=== PATIENT | female | born 1960 | race Caucasian/White ===

== ENCOUNTER → 2021-01-20 15:10 | Outpatient (BNVA) | payer OTHER, SELFPAY | PROVIDERS: PCP Internal Medicine; Visit Provider Internal Medicine Pulmonary Disease ==

== ENCOUNTER 2021-02-01 06:15 | Outpatient (REF) | payer OTHER, SELFPAY ==
[2021-02-01 07:07] LABS: MANUAL DIFF FLAG NO
[2021-02-01 07:14] LABS: Basophils Absolute Auto 0.1 X10*3/uL (0.0-0.2); Basophils Percent Auto 0.8 % (0-2); Eosinophils Absolute Auto 0.3 X10*3/uL (0.0-0.4); Eosinophils Percent Auto 4.6 % (0-4); Hematocrit 43.1 % (37-47); Hemoglobin 14.2 g/dl (12.0-16.0); Imm Gran Abs Auto 0.02 X10*3/uL (0.00-0.03); Imm Gran Pct Auto 0.3 % (0.0-0.4); Lymphocytes Absolute Auto 2.3 X10*3/uL (1.2-4.9); Lymphocytes Percent Auto 37.3 % (20-40); Mean Corpuscular HGB Conc 32.9 g/dl (31.0-35.0); Mean Corpuscular Hemoglobin 30.5 pg (27.0-33.0); Mean Corpuscular Volume 92.7 fL (80-98); Mean Platelet Volume 9.4 fL (9.4-12.3); Monocytes Absolute Auto 0.3 X10*3/uL (0.1-1.2); Neutrophils Absolute Auto 3.2 X10*3/uL (2.0-8.3); Platelet Count 222 X10*3/uL (160-400); Red Blood Count 4.65 X10*6/uL (4.20-5.50); Red Cell Distribution Width 12.7 % (11.0-16.0); White Blood Count 6.1 X10*3/uL (4.8-10.8)
[2021-02-01 07:35] LABS: Alanine Aminotransferase 28 U/L (0-31); Albumin Level 4.3 g/dL (3.5-5.0); Alkaline Phosphatase 88 U/L (39-117); Aspartate Amino Transferase 24 U/L (5-31); Bilirubin Total 0.4 mg/dL (0.0-1.0); Blood Urea Nitrogen 20 mg/dL (9-16); Cholesterol 196 mg/dL; Estimated Glomerular Filt Rate > 60; Glucose Random 113 mg/dL (60-115); HDL Cholesterol 56 mg/dL; LDL Cholesterol Calculated 120 mg/dl; Total Protein 6.4 g/dL (6.5-8.0); Triglycerides 103 mg/dL
[2021-02-01 07:43] LABS: Anion Gap 11 (12-20); Carbon Dioxide 28 mmol/L (22-29); Chloride 106 mmol/L (96-108); Potassium 4.1 mmol/L (3.3-5.1); Sodium 141 mmol/L (135-145)
[2021-02-01 07:53] LABS: Thyroid Stimulating Hormone 3.03 uIU/mL (0.32-4.0)
== END 2021-02-01 06:16 | disposition home or self-care (01) ==
LOC: HO.LAB 06:15
PROVIDERS: PCP Internal Medicine; Visit Provider Internal Medicine
DX: E78.2 Mixed hyperlipidemia (principal); I10 Essential (primary) hypertension; J45.909 Unspecified asthma, uncomplicated
CPT/HCPCS: 36415; 80053; 80061; 84443; 85025

== ENCOUNTER 2021-02-11 11:25 | Outpatient (REF) | payer OTHER, SELFPAY ==
--- NOTE | ~2021-02-11 | US_ITS ---
EXAMINATION: US THYROID CLINICAL INFORMATION: Difficulty swallowing. Thyroid nodule. COMPARISON: None TECHNIQUE: Linear transducer middleton-scale and color Doppler examination with attention to the region of the thyroid. FINDINGS: SIZE: Measurements of the thyroid lobes and nodules are given in sagittal, anteroposterior and transverse dimensions respectively. Right Thyroid Lobe: 5.5 x 1.9 x 1.3 cm, volume 7.1 mL. Parenchyma: The gland echotexture is homogeneous. Thyroid vascularity is normal. Left Thyroid Lobe: 4.0 x 1.4 x 1.2 cm, volume 3.4 mL. Parenchyma: The gland echotexture is homogeneous. Thyroid vascularity is normal. Isthmus: 0.6 cm in maximum AP dimension. Estimated total number of nodules greater than or equal to 1 cm: 1. Sales Account Executive nodules are described as follows: 1. Location: Isthmus. Size: 0.6 x 0.5 x 0.5 cm, volume 0.85 mL. Nodule characteristics: Composition: Solid (2). Echogenicity: Hypoechoic (2). Shape: Not taller than wide (0). Margins: Ill-defined (0). Echogenic Foci: Macrocalcifications (1). ACR TI-RADS total points: 5 ACR TI-RADS category: 4 2. Location: Left isthmus. Size: 0.8 x 0.6 x 0.7 cm, volume 0.18 mL. Nodule characteristics: Composition: Solid (2). Echogenicity: Hypoechoic (2). Shape: Not taller than wide (0). Margins: Smooth (0). Echogenic Foci: None (0). ACR TI-RADS total points: 4 ACR TI-RADS category: 4 3. Location: Left superior. Size: 0.7 x 0.6 x 0.6 cm, volume 0.13 mL. Nodule characteristics: Composition: Solid (2). Echogenicity: Hypoechoic (2). Shape: Not taller than wide (0). Margins: Smooth (0). Echogenic Foci: Macrocalcifications (1). ACR TI-RADS total points: 5 ACR TI-RADS category: 4 4. Location: Left inferior. Size: 1.6 x 1.3 x 1.4 cm, volume 1.52 mL. Nodule characteristics: Composition: Mixed cystic and solid (1). Echogenicity: Hypoechoic (2). Shape: Not taller than wide (0). Margins: Ill-defined (0). Echogenic Foci: Macrocalcifications (1). ACR TI-RADS total points: 4 ACR TI-RADS category: 4 5. Location: Right mid/inferior. Size: 0.3 x 0.3 x 0.3 cm, volume 0.01 mL. Nodule characteristics: Composition: Cannot be determined (2). Echogenicity: Cannot be determined (1). Shape: Not taller than wide (0). Margins: Smooth (0). Echogenic Foci: Peripheral calcifications (2). ACR TI-RADS total points: 5 ACR TI-RADS category: 4 NODES: No lymphadenopathy is seen in the tissue surrounding the thyroid gland. US/US thyroid IMPRESSION: Multinodular thyroid, as described. The largest nodule is a 1.6 x 1.3 x 1.4 cm mixed cystic and solid TR4. Sonographic follow up is recommended. ACR TI-RADS RECOMMENDATION REFERENCE: Ultrasound-guided fine-needle aspiration, followup ultrasound, no further follow up. * TR1 (0 point) and TR 2 (2 points): No FNA or follow up * TR3 (3 points): FNA if more than or equal to 2.5 cm in maximum dimension, followup ultrasound in 1, 3 and 5 years if 1.5 to 2.4 cm in maximum dimension. * TR4 (4-6 points): FNA if more than or equal to 1.5 cm in maximum dimension, followup ultrasound in 1, 2, 3 and 5 years if 1 to 1.4 cm in maximum dimension. * TR5 (more than or equal to 7 points): FNA if more than or equal to 1 cm in maximum dimension, followup ultrasound every year for 5 years if 0.5 to 0.9 cm in maximum dimension. * TR3, TR4 or TR5 nodules that are below the size threshold for follow up receive no follow up.
== END 2021-02-11 11:26 | disposition home or self-care (01) ==
LOC: HO.US 11:25
PROVIDERS: Visit Provider Internal Medicine
DX: E04.1 Nontoxic single thyroid nodule (principal); R13.10 Dysphagia, unspecified
CPT/HCPCS: 76536

== ENCOUNTER 2021-04-07 08:35 | Outpatient (REF) | payer OTHER, SELFPAY ==
--- NOTE | ~2021-04-07 | MM_ITS ---
EXAMINATION: MM SCREENING DIGITAL BREAST TOMOSYNTHESIS, BILATERAL CLINICAL INFORMATION: Screening. Asymptomatic. The lifetime risk of breast cancer based on the Tyrer-Cuzick Model is 12%. COMPARISON: Mammography: 04/26/2019, 12/30/2017, 05/26/2016, 06/20/2014 TECHNIQUE: Digital breast tomosynthesis is performed in both the craniocaudal and mediolateral oblique views along with computer-aided detection (CAD). Synthesized 2D images are generated from the tomosynthesis. FINDINGS: There are scattered areas of fibroglandular density (ACR BI-RADS breast composition Category b). There are no significant masses, abnormal calcifications, or other abnormalities. Parenchymal pattern is similar to prior studies. No developing density. No significant changes. MM/MM tomosynthesis screening BI IMPRESSION: No mammographic evidence of malignancy. ASSESSMENT: BI-RADS 1: Negative RECOMMENDATION: Routine annual mammography screening. This patient's information was entered into a reminder system with a target due date for their next mammogram.
== END 2021-04-07 08:36 | disposition home or self-care (01) ==
LOC: HO.MAMMO 08:35
PROVIDERS: Visit Provider Internal Medicine
DX: Z12.31 Encounter for screening mammogram for malignant neoplasm of breast (principal)
CPT/HCPCS: 77063; 77067

== ENCOUNTER → 2021-08-04 15:01 | Outpatient (BNVA) | payer OTHER, SELFPAY | PROVIDERS: PCP Internal Medicine; Visit Provider Internal Medicine Pulmonary Disease ==

== ENCOUNTER → 2022-02-01 14:51 | Outpatient (BNVA) | payer OTHER, SELFPAY | PROVIDERS: PCP Internal Medicine; Visit Provider Internal Medicine Pulmonary Disease ==

== ENCOUNTER 2022-02-22 06:29 | Outpatient (REF) | payer OTHER, SELFPAY ==
[2022-02-22 06:40] LABS: MANUAL DIFF FLAG NO
[2022-02-22 07:28] LABS: Basophils Percent Auto 0.4 % (0-2); Eosinophils Absolute Auto 0.2 X10*3/uL (0.0-0.4); Eosinophils Percent Auto 2.8 % (0-4); Hematocrit 43.1 % (37.0-47.0); Imm Gran Abs Auto 0.02 X10*3/uL (0.00-0.03); Imm Gran Pct Auto 0.3 % (0.0-0.4); Lymphocytes Absolute Auto 1.3 X10*3/uL (1.2-4.9); Mean Corpuscular HGB Conc 32.5 g/dl (31.0-35.0); Mean Corpuscular Hemoglobin 30.3 pg (27.0-33.0); Mean Corpuscular Volume 93.3 fL (80.0-98.0); Mean Platelet Volume 9.7 fL (9.4-12.3); Monocytes Absolute Auto 0.3 X10*3/uL (0.1-1.2); Monocytes Percent Auto 4.7 % (2-11); Neutrophils Absolute Auto 4.9 x10*3/uL (2.0-8.3); Neutrophils Percent Auto 72.8 % (45-73); Platelet Count 218 X10*3/uL (160-400); Red Blood Count 4.62 X10*6/uL (4.20-5.50); Red Cell Distribution Width 12.5 % (11.0-16.0); White Blood Count 6.8 X10*3/uL (4.8-10.8)
[2022-02-22 07:49] LABS: Alanine Aminotransferase 25 U/L (0-31); Albumin Level 4.2 g/dL (3.5-5.0); Alkaline Phosphatase 85 U/L (39-117); Anion Gap 10 (12-20); Aspartate Amino Transferase 23 U/L (5-31); Bilirubin Total 0.5 mg/dL (0.0-1.0); Blood Urea Nitrogen 15 mg/dL (9-16); Calcium 9.2 mg/dL (8.4-10.2); Carbon Dioxide 28 mmol/L (22-29); Chloride 108 mmol/L (96-108); Cholesterol 169 mg/dL; Estimated Glomerular Filt Rate > 60; Glucose Random 107 mg/dL (60-115); HDL Cholesterol 53 mg/dL; LDL Cholesterol Calculated 92 mg/dl; Potassium 4.3 mmol/L (3.3-5.1); Sodium 142 mmol/L (135-145); Total Protein 6.6 g/dL (6.5-8.0); Triglycerides 123 mg/dL
[2022-02-24 17:41] LABS: TS Negative Control Passed; TS Panel A 0; TS Panel B 0; TS Positive Control Passed; TSpotTB Negative (Negative)
== END 2022-02-22 06:30 | disposition home or self-care (01) ==
LOC: HO.LAB 06:29
PROVIDERS: PCP Internal Medicine; Visit Provider Internal Medicine
DX: Z00.01 Encounter for general adult medical examination with abnormal findings (principal); Z11.1 Encounter for screening for respiratory tuberculosis; E89.0 Postprocedural hypothyroidism; I10 Essential (primary) hypertension; M79.18 Myalgia, other site
CPT/HCPCS: 36415; 80053; 80061; 85025; 86481

== ENCOUNTER → 2022-04-05 13:24 | Outpatient (BNVA) | payer OTHER, SELFPAY | PROVIDERS: PCP Internal Medicine; Visit Provider Internal Medicine Pulmonary Disease | DX: J45.40 Moderate persistent asthma, uncomplicated (principal) ==

== ENCOUNTER 2022-06-20 07:20 | Outpatient (REF) | payer OTHER, SELFPAY ==
--- NOTE | ~2022-06-20 | MM_ITS ---
EXAMINATION: MM SCREENING DIGITAL BREAST TOMOSYNTHESIS, BILATERAL CLINICAL INFORMATION: Screening. Asymptomatic. The lifetime risk of breast cancer based on the Tyrer-Cuzick Model is 16%. COMPARISON: Mammography: 04/07/2021, 04/26/2019, series 318 TECHNIQUE: Digital breast tomosynthesis is performed in both the craniocaudal and mediolateral oblique views along with computer-aided detection (CAD). Synthesized 2D images are generated from the tomosynthesis. FINDINGS: There are scattered areas of fibroglandular density (ACR BI-RADS breast composition Category b). There are no significant masses, abnormal calcifications, or other abnormalities. No significant changes. MM/MM tomosynthesis screening BI IMPRESSION: No mammographic evidence of malignancy. ASSESSMENT: BI-RADS 1: Negative RECOMMENDATION: Routine annual mammography screening. This patient's information was entered into a reminder system with a target due date for their next mammogram.
== END 2022-06-20 07:21 | disposition home or self-care (01) ==
LOC: HO.MAMMO 07:20
PROVIDERS: PCP Internal Medicine; Visit Provider Internal Medicine
DX: Z12.31 Encounter for screening mammogram for malignant neoplasm of breast (principal)
CPT/HCPCS: 77063; 77067

== ENCOUNTER 2022-10-13 15:52 | Outpatient (REF) | payer OTHER, SELFPAY ==
--- NOTE | ~2022-10-13 | XR_ITS ---
EXAMINATION: XR CHEST CLINICAL INFORMATION: Question situs inversus. COMPARISON: Chest 10/09/2020 TECHNIQUE: 2 views of the chest were obtained. FINDINGS: Both lungs are well-expanded and clear of acute process. Heart size and pulmonary vascularity is normal. There is no situs inversus. There is no pleural effusion or thickening. No gross bony abnormality seen. XR/XR chest 2V IMPRESSION: Unremarkable chest exam. No change from 10/09/2019.
== END 2022-10-13 15:53 | disposition home or self-care (01) ==
LOC: HO.XRAY 15:52
PROVIDERS: Visit Provider Internal Medicine
DX: Q89.3 Situs inversus (principal)
CPT/HCPCS: 71046

== ENCOUNTER 2023-02-11 07:29 | Outpatient (REF) | payer OTHER, SELFPAY ==
[2023-02-11 08:02] LABS: MANUAL DIFF FLAG NO
[2023-02-11 08:45] LABS: Basophils Percent Auto 0.7 % (0-2); Eosinophils Absolute Auto 0.3 X10*3/uL (0.0-0.4); Eosinophils Percent Auto 4.7 % (0-4); Hematocrit 42.5 % (37.0-47.0); Hemoglobin 14.2 g/dl (12.0-16.0); Imm Gran Abs Auto 0.03 X10*3/uL (0.00-0.03); Imm Gran Pct Auto 0.6 % (0.0-0.4); Lymphocytes Absolute Auto 1.9 X10*3/uL (1.2-4.9); Lymphocytes Percent Auto 34.6 % (20-40); Mean Corpuscular HGB Conc 33.4 g/dl (31.0-35.0); Mean Corpuscular Hemoglobin 30.5 pg (27.0-33.0); Mean Corpuscular Volume 91.2 fL (80.0-98.0); Mean Platelet Volume 9.3 fL (9.4-12.3); Monocytes Absolute Auto 0.3 X10*3/uL (0.1-1.2); Neutrophils Absolute Auto 2.9 x10*3/uL (2.0-8.3); Neutrophils Percent Auto 53.4 % (45-73); Platelet Count 211 X10*3/uL (160-400); Red Blood Count 4.66 X10*6/uL (4.20-5.50); Red Cell Distribution Width 12.6 % (11.0-16.0); White Blood Count 5.4 X10*3/uL (4.8-10.8)
[2023-02-11 09:34] LABS: Alanine Aminotransferase 31 U/L (0-31); Albumin Level 4.2 g/dL (3.5-5.0); Alkaline Phosphatase 73 U/L (39-117); Anion Gap 14 (12-20); Aspartate Amino Transferase 26 U/L (5-31); Bilirubin Total 0.6 mg/dL (0.0-1.0); Blood Urea Nitrogen 12 mg/dL (9-16); Calcium 8.9 mg/dL (8.4-10.2); Carbon Dioxide 26 mmol/L (22-29); Chloride 106 mmol/L (96-108); Cholesterol 197 mg/dL; Estimated Glomerular Filt Rate > 60; Glucose Random 118 mg/dL (60-115); HDL Cholesterol 57 mg/dL; LDL Cholesterol Calculated 110 mg/dl; Potassium 4.3 mmol/L (3.3-5.1); Sodium 142 mmol/L (135-145); Total Protein 6.4 g/dL (6.5-8.0); Triglycerides 152 mg/dL
[2023-02-11 09:38] LABS: Thyroid Stimulating Hormone 0.02 uIU/mL (0.32-4.0)
== END 2023-02-11 07:30 | disposition home or self-care (01) ==
LOC: HO.LAB 07:29
PROVIDERS: PCP Internal Medicine; Visit Provider Internal Medicine
DX: E78.00 Pure hypercholesterolemia, unspecified (principal); E89.0 Postprocedural hypothyroidism; I10 Essential (primary) hypertension
CPT/HCPCS: 36415; 80053; 80061; 84443; 85025

== ENCOUNTER 2023-02-21 15:16 | Outpatient (REF) | payer OTHER, SELFPAY ==
[2023-02-21 16:01] LABS: MANUAL DIFF FLAG NO
[2023-02-21 16:22] LABS: Basophils Percent Auto 0.4 % (0-2); Eosinophils Absolute Auto 0.3 X10*3/uL (0.0-0.4); Hematocrit 42.7 % (37.0-47.0); Hemoglobin 14.2 g/dl (12.0-16.0); Imm Gran Abs Auto 0.01 X10*3/uL (0.00-0.03); Imm Gran Pct Auto 0.1 % (0.0-0.4); Lymphocytes Absolute Auto 1.9 X10*3/uL (1.2-4.9); Lymphocytes Percent Auto 27.9 % (20-40); Mean Corpuscular HGB Conc 33.3 g/dl (31.0-35.0); Mean Corpuscular Hemoglobin 30.3 pg (27.0-33.0); Mean Corpuscular Volume 91.2 fL (80.0-98.0); Mean Platelet Volume 9.6 fL (9.4-12.3); Monocytes Absolute Auto 0.3 X10*3/uL (0.1-1.2); Neutrophils Absolute Auto 4.2 x10*3/uL (2.0-8.3); Neutrophils Percent Auto 63.6 % (45-73); Platelet Count 243 X10*3/uL (160-400); Red Blood Count 4.68 X10*6/uL (4.20-5.50); Red Cell Distribution Width 12.5 % (11.0-16.0); White Blood Count 6.7 X10*3/uL (4.8-10.8)
[2023-02-23 07:49] LABS: Rubella IgG Antibody 3.33 Index; Rubeola IgG (Measles) >300.00 AU/mL
== END 2023-02-21 15:17 | disposition home or self-care (01) ==
LOC: HO.LAB 15:16
PROVIDERS: Absent Provider Internal Medicine Pulmonary Disease; PCP Internal Medicine; Visit Provider Internal Medicine
DX: Z00.00 Encounter for general adult medical examination without abnormal findings (principal); Z91.09 Other allergy status, other than to drugs and biological substances; E78.00 Pure hypercholesterolemia, unspecified; I10 Essential (primary) hypertension; M51.16 Intervertebral disc disorders with radiculopathy, lumbar region; R73.01 Impaired fasting glucose
CPT/HCPCS: 36415; 82785; 85025; 86003; 86735; 86762; 86765

== ENCOUNTER → 2023-05-16 15:42 | Outpatient (BNVA) | payer OTHER, SELFPAY | PROVIDERS: PCP Internal Medicine; Visit Provider Internal Medicine Pulmonary Disease ==

== ENCOUNTER 2023-06-05 12:09 | Outpatient (REF) | payer OTHER, SELFPAY ==
--- NOTE | ~2023-06-05 | XR_ITS ---
EXAMINATION: XR HIP, LEFT CLINICAL INFORMATION: Discomfort left hip COMPARISON: None available. TECHNIQUE: Two views of the left hip. FINDINGS: No fracture. Alignment is anatomic. Hip joint space is maintained. Soft tissues are unremarkable. XR/XR hip LT min 2V IMPRESSION: Normal left hip.
== END 2023-06-05 12:10 | disposition home or self-care (01) ==
LOC: HO.XRAY 12:09
PROVIDERS: PCP Internal Medicine; Visit Provider Internal Medicine
DX: M25.552 Pain in left hip (principal)
CPT/HCPCS: 73502

== ENCOUNTER 2023-08-07 15:58 | Outpatient (REF) | payer OTHER, SELFPAY | END 2023-08-07 15:59 | disposition home or self-care (01) | LOC: HO.MAMMO 15:58 | PROVIDERS: PCP Internal Medicine; Visit Provider Internal Medicine | DX: Z12.31 Encounter for screening mammogram for malignant neoplasm of breast (principal) | CPT/HCPCS: 77063; 77067 ==

== ENCOUNTER → 2023-08-07 16:30 | Outpatient (BNV) | payer OTHER, SELFPAY | PROVIDERS: PCP Internal Medicine; Visit Provider Radiology Diagnostic Radiology | DX: Z12.31 Encounter for screening mammogram for malignant neoplasm of breast (principal) | CPT/HCPCS: 77063; 77067 ==

== ENCOUNTER 2023-08-08 15:36 | Outpatient (AMB) | payer OTHER, SELFPAY ==
--- NOTE | 2023-08-08 15:37 | A.OFFVIS_ITS ---
Intake Vital Signs 08/08/23 15:38 Height 5 ft 2 in Weight 181 lb 14.102 oz BMI 33.3 BP 127/80 Blood Pressure Location Lt brachial Position Sitting Pulse 97 Pulse Source Doppler Pulse Oximetry (%) 96 Oxygen Delivery Method Room Air Intake Visit Reasons: Asthma Allergies erythromycin base Allergy (Verified 08/08/23 15:42) Unknown HPI Asthma HPI Details 63-year-old lady, lifetime nonsmoker, fo llowed for underlying moderate persistent allergic asthma.? She has been using Flovent, Singulair, and albuterol MDI with reasonable control of her symptoms, except some seasonal allergic exacerbations. Patient has had essentially unrevealing RAST. She has had COVID in May, but now has almost fully recovered from it, though she does complain of some intermittent raspy-ness of her voice. Review of Systems Const Denies daytime sleepiness, Denies excessive sweating, Denies fatigue, Denies fever(s), Denies lethargy, Denies malaise, Denies night sweats, Denies snoring and Denies weight loss Eyes Denies blurry vision and Denies itchy eyes ENT Denies nasal congestion, Denies post nasal drip, Denies sinus pain, Denies sinus pressure and Denies other ( Thrush) Card Denies chest pain, Denies pedal edema, Denies dyspnea, Denies orthopnea and Denies paroxysmal nocturnal dyspnea Resp Denies cough, Denies hemoptysis, Denies excessive phlegm production, Denies dyspnea, Denies snoring and Denies wheezing GI Denies abdominal pain and Denies heartburn Musc Denies myalgias, Denies arthralgias and Denies joint swelling Skin/Breast Denies rash Neuro Denies memory loss and Denies seizure-like activity Psych Denies abnormal sleep pattern, Denies anxiety and Denies memory loss Endo Denies excessive sweating, Denies fatigue and Denies heat intolerance Jaiden/Lymph Denies easy bruising Aller/Immun Denies itchy eyes, Denies seasonal rhinorrhea and Denies wheezing Physical Exam Vital Signs: Last Vital Signs Pulse 97 08/08/23 15:38 BP 127/80 08/08/23 15:38 Pulse Ox 96 08/08/23 15:38 Oxygen Delivery Method Room Air 08/08/23 15:38 BMI result Body Mass Index 33.3 Const General: no acute distress and alert Nutritional Appearance: not obese Orientation/consciousness: Other orientation findings ( oriented) HEENT Head: Yes atraumatic Eyes General: appearance normal, both eyes and all related structures Sclerae: sclerae normal EOM: EOMs intact bilaterally Neck Neck: Yes supple Lymphatic: no lymphadenopathy noted Resp Effort & Inspection: normal respiratory effort and no use of accessory muscles Auscultation: clear to auscultation bilaterally Cardio Rate: regular rate Rhythm: regular rhythm Heart sounds: no gallops, no murmurs and no rubs Skin General skin exam: other ( warm) Extrem General: No clubbing, No cyanosis and No edema Assessment & Plan Assessment & Plan (1) Moderate persistent asthma: Code(s): J45.40 - Moderate persistent asthma, uncomplicated Plan: Patient has been advised to increase her Flovent and albuterol MDI and Ca of her voice symptoms anish. Continue current regimen of Flovent 110 and albuterol MDI. (2) Environmental allergies: Code(s): Z91.09 - Other allergy status, other than to drugs and biological substances Plan: Now with seasonal exacerbation, though still with reasonable control on Singulair. Continue current regimen. Coding Level of Care Code Est Pt Level 4 (90758) Diagnoses Moderate persistent asthma J45.40 Environmental allergies Z91.09
[2023-08-08 15:38] VITALS: BP 127/80; PULSE 97; O2SAT 96; BMI 33.3
== END 2023-08-08 15:58 | disposition home or self-care (01) ==
PROVIDERS: PCP Internal Medicine; Visit Provider Internal Medicine Pulmonary Disease
DX: J45.40 Moderate persistent asthma, uncomplicated (principal); Z91.09 Other allergy status, other than to drugs and biological substances
CPT/HCPCS: 99214

== ENCOUNTER → 2023-08-08 15:36 | Outpatient (BNVA) | payer OTHER, SELFPAY | PROVIDERS: PCP Internal Medicine; Visit Provider Internal Medicine Pulmonary Disease | DX: J45.40 Moderate persistent asthma, uncomplicated (principal); Z91.09 Other allergy status, other than to drugs and biological substances ==

== ENCOUNTER 2023-12-15 06:44 | Outpatient (REF) | payer OTHER, SELFPAY ==
[2023-12-15 07:50] LABS: Estimated Average Glucose 100 mg/dL; Hemoglobin A1c % 5.1 % (<6.0)
[2023-12-15 08:10] LABS: Alanine Aminotransferase 23 U/L (0-31); Albumin Level 4.2 g/dL (3.5-5.0); Alkaline Phosphatase 70 U/L (39-117); Anion Gap 11 (12-20); Aspartate Amino Transferase 22 U/L (5-31); Bilirubin Total 0.6 mg/dL (0.0-1.0); Blood Urea Nitrogen 20 mg/dL (9-16); Carbon Dioxide 26 mmol/L (22-29); Chloride 108 mmol/L (96-108); Cholesterol 193 mg/dL (<200); Estimated Glomerular Filt Rate > 60; Glucose Random 102 mg/dL (60-115); HDL Cholesterol 55 mg/dL (>40); LDL Cholesterol Calculated 111 mg/dL (<100); Potassium 4.1 mmol/L (3.3-5.1); Sodium 141 mmol/L (135-145); Total Protein 6.8 g/dL (6.5-8.0); Triglycerides 136 mg/dL (<150)
== END 2023-12-15 06:45 | disposition home or self-care (01) ==
LOC: HO.LAB 06:44
PROVIDERS: PCP Internal Medicine; Visit Provider Internal Medicine
DX: E78.00 Pure hypercholesterolemia, unspecified (principal); I10 Essential (primary) hypertension; R73.01 Impaired fasting glucose
CPT/HCPCS: 36415; 80053; 80061; 83036

== ENCOUNTER 2024-01-04 05:30 | Emergency (ER) | payer OTHER, SELFPAY ==
[2024-01-04 05:37] VITALS: BP 171/85; PULSE 102; RESP 14; TEMP 36.8; O2SAT 96; BMI 32.6
[2024-01-04 05:58] LABS: IDNOW Serial# 08D9AD1C; Strep A Nucleic Acid Negative (Negative)
[2024-01-04 06:00] VITALS: BP 175/85; PULSE 97; RESP 18; O2SAT 98
[2024-01-04 06:04] LABS: COVID-19 Test Negative (Negative); IDNOW Serial# 152EDE1D; IDNOW Serial# 9DB6401D; Influenza A Negative (Negative); Influenza B2 Negative (Negative)
--- NOTE | 2024-01-04 06:44 | ED.GENADULT ---
HPI - General Adult General Chief complaint: General Medical Stated complaint: difficultly swallowing, swollen throat Time Seen by Provider: 01/04/24 06:40 Source: patient Mode of arrival: ambulatory Limitations: no limitations History of Present Illness HPI narrative: Patient is a 63 year old assigned female at with a history of asthma presenting to the emergency department today with a sore throat. Patient states that she woke up this morning with a large collection of mucus in her throat, coughed it out, and has since had a sore throat. Patient states that she feels as though her uvula is swollen. Patient denies any dizziness, lightheadedness, abdominal pain, nausea, vomiting, fever, chills, blurry vision, double vision, loss of vision, chest pain, difficulty breathing, shortness of breath, back pain, night sweats, pain with urination, increased urinary frequency, increased urinary urgency, blood in her urine or stool, syncope or a near syncopal episode, recent trauma or falls, bowel incontinence, bladder incontinence, bowel retention, bladder retention, or any other complaints at this time. Onset (ago): day(s) (1) Severity: mild Severity scale (1-10): 3 Relieving factors: none Exacerbating factors: none Associated symptoms: denies other symptoms Treatments prior to arrival: none Related Data Home Medications Medication Instructions Recorded Confirmed atorvastatin 40 mg tablet 40 mg PO DAILY 01/20/21 losartan 100 mg tablet 100 mg PO DAILY 01/20/21 montelukast 10 mg tablet 10 mg PO DAILY 01/20/21 valsartan 160 1 tab PO DAILY 02/21/23 mg-hydrochlorothiazide 25 mg tablet Previous Rx's Medication Instructions Recorded fluticasone propionate 110 1 puff PO BID #12 ea 10/23/23 mcg/actuation HFA aerosol inhaler (Flovent HFA) penicillin V potassium 500 mg 500 mg PO BID 10 days #20 tabs 01/04/24 tablet prednisone 20 mg tablet 20 mg PO DAILY 7 days #7 tabs 01/04/24 Allergies Allergy/AdvReac Type Severity Reaction Status Date / Time erythromycin base Allergy Unknown Verified 01/04/24 05:41 Review of Systems Constitutional: Constitutional: Reports no additional constitutional complaints, Denies chills, Denies fever(s) and Denies night sweats Eyes: Eyes: Reports no additional eye complaints, Denies blurry vision, Denies change in vision, Denies diplopia, Denies eye discharge, Denies loss of vision and Denies eye pain ENT: Denies dizziness Comments: sore throat Cardiovascular: Cardiovascular: Reports no additional cardiovascular complaints, Denies chest pain, Denies lightheadedness, Denies Loss of Consciousness and Denies dyspnea Respiratory: Respiratory: Reports no additional respiratory complaints and Denies dyspnea Gastrointestinal: Gastrointestinal: Reports no additional gastrointestinal complaints, Denies abdominal pain, Denies melena, Denies hematochezia, Denies change in bowel habits and Denies change in stool character Genitourinary: Genitourinary: Denies hematuria, Denies urinary frequency, Denies dysuria, Denies urinary incontinence, Denies urinary hesitancy and Denies urinary urgency Musculoskeletal: Musculoskeletal: Reports no additional musculoskeletal complaints, Denies numbness and Denies tingling Neurologic: Denies dizziness, Denies loss of vision, Denies numbness and Denies tingling Psychiatric: Psychiatric: Reports no additional psychiatric complaints Endocrine: Endocrine: Reports no additional endocrine complaints Hematologic/Lymphatic: Hematologic/Lymphatic: Reports no additional hematologic/lymphatic complaints Allergic/Immunologic: Allergic/Immunologic: Reports no additional allergic/immunologic complaints PMFSH Past Medical History Attestation statement: The following information was validated with the patient. Source: old records reviewed and nursing notes reviewed Social History Social History Smoked in Last 30 Days: No Use of substances other than those prescribed or required for medical reasons: No Advance Directives: No Patient : No Physical Exam ED Vital Signs: Vital Signs - 24 hr 01/04/24 05:37 01/04/24 06:00 Temperature 98.2 F Pulse Rate 102 H 97 Respiratory Rate 14 18 Blood Pressure 171/85 H 175/85 H Pulse Oximetry 96 98 Oxygen Delivery Method Room Air BMI result Body Mass Index 32.6 Const General: cooperative, no acute distress, alert and awake Nutritional Appearance: well nourished Orientation/consciousness: patient oriented x3 Limitations: no limitations HENMT Head: Yes normal to inspection and Yes atraumatic Ears: hearing grossly normal bilaterally and external ears normal General nose exam: Normal external nose present, no nasal discharge noted and no epistaxis Face and sinus: Yes normal facial exam, No abrasion and No laceration Mouth: Normal oral and palatal mucosa present, no drooling and no muffled voice Throat: Yes uvular edema (minimal) Eyes General: appearance normal, both eyes and all related structures Periorbital: periorbital findings normal Eyelids: Yes eyelids normal Conjunctivae: conjunctivae normal Pupils: Equal, round and reactive pupils present EOM: EOMs intact bilaterally Neck Neck: Yes normal visual inspection, Yes full ROM and Yes no lymphadenopathy Chest Chest palpation & inspection: normal inspection of the chest Resp Effort & Inspection: normal respiratory effort and able to speak in complete sentences GI Inspection: Yes normal to inspection Neuro General: patient oriented x3 and moves all extremities Cranial nerves: Yes Equal, round and reactive pupils present Cognition (Neuro): normal cognition Motor exam (neuro): 5/5 motor strength present throughout Sensory Exam: Normal double simultaneous stimulation for sensation Coordination: [id number] test normal Extrem General: Yes normal to inspection, Yes full ROM and Yes capillary refill normal Psych Appearance: grossly normal Mental Status: mental status grossly normal Affect: normal affect Attitude: cooperative Thought process: Normal thought process present Thought content: Normal thought content present Insight: Good insight present (Psych) Medications Administered Discontinued Medications Generic Name Dose Route Start Last Admin Trade Name Freq PRN Reason Stop Dose Admin Dexamethasone Sodium Phosphate 10 mg 01/04/24 06:55 01/04/24 07:59 Dexamethasone Sod Phosphate 10 Mg/Ml Vial PO 01/04/24 06:56 10 mg ONCE ONE Administration Medical Decision Making Medical Decision Making [facility] Narrative: Patient is a 63 year old assigned female at with a history of asthma presenting to the emergency department today with a sore throat and swollen uvula. Patient's physical exam showed very minimal uvular swelling but was otherwise unremarkable. Patient's COVID-19, influenza, and strep tests were all negative. I explained my physical exam findings as well as all test results to the patient. I answered all questions asked by the patient. I stressed the importance of the patient taking her medication as prescribed. I stressed the importance of the patient following up with her primary care provider. I stressed the importance of the patient returning to the emergency department immediately if her symptoms were to worsen or if she were to develop any dizziness, shortness of breath, difficulty breathing, chest pain, blurry vision, loss of vision, nausea, vomiting, abdominal pain, fever, chills, back pain, or any other complaints. Patient verbalized agreement and understanding with this treatment plan and discharge. Differential Diagnosis Differential Diagnoses: The differential diagnosis associated with the presentation includes Uvulitis Strep pharyngitis Pharyngitis COVID-19 Influenza Admission/Observation Consideration of admission/observation: Escalation of care including admission/observation considered Patient would have been admitted to the hospital had her work up had any findings where hospital admission was appropriate and her clinical presentation warranted hospital admission. Lab Data [facility] Lab Attestation statement: I reviewed the patient's lab results. My interpretation of these results are in the [facility] Rationale portion of this note. Labs: Lab Results 01/04/24 Range/Units 05:43 COVID-19 (CHARLES) Negative (Negative) COVID-19 Clin Com See Note Influenza Type A (JASON) Negative (Negative) Influenza Type B (JASON) Negative (Negative) Influenza A & B Note See Note S. pyogenes GrpA JASON Negative (Negative) Prescription Management I considered prescription management with: Antibiotic (patient prescribed antibiotic) Discharge Plan Discharge Clinical Impression: Uvulitis Patient Disposition: Home, Self-Care Instructions: Uvulitis (ED) Additional Instructions: Follow up with your primary care provider. Return to the emergency department immediately if your symptoms worsen or if you develop any dizziness, shortness of breath, difficulty breathing, chest pain, blurry vision, loss of vision, nausea, vomiting, abdominal pain, fever, chills, back pain, or any other complaints. Prescriptions: New prednisone 20 mg tablet 20 mg PO DAILY 7 Days Qty: 7 0RF penicillin V potassium 500 mg tablet 500 mg PO BID 10 Days Qty: 20 0RF No Action fluticasone propionate [Flovent HFA] 110 mcg/actuation HFA aerosol inhaler 1 puff PO BID Qty: 12 0RF montelukast 10 mg tablet 10 mg PO DAILY losartan 100 mg tablet 100 mg PO DAILY atorvastatin 40 mg tablet 40 mg PO DAILY valsartan-hydrochlorothiazide 160-25 mg tablet 1 tab PO DAILY Referrals: Felicia Dumont MD [Primary Care Provider] - Stand Alone Forms: Work/School Release Interventions: ED Discharge Assessment Last Done: 01/04/24 08:01 Discharge Date/Time: 01/04/24 08:01 Print Language: Mohawk
[2024-01-04] MEDS: dexAMETHasone sod phosphate 10 MG/ML VIAL PO (07:59)
== END 2024-01-04 08:01 | disposition home or self-care (01) ==
PROVIDERS: Emergency Provider Emergency Medicine; PCP Internal Medicine
DX: K12.2 Cellulitis and abscess of mouth (principal); R13.10 Dysphagia, unspecified; Z11.52 Encounter for screening for COVID-19; Z79.899 Other long term (current) drug therapy
CPT/HCPCS: 87502; 87635; 87651; 99283; 99284; J1100

== ENCOUNTER 2024-02-06 15:12 | Outpatient (AMB) | payer OTHER, SELFPAY ==
[2024-02-06 15:18] VITALS: BP 126/77; PULSE 117; O2SAT 97; BMI 33.7
--- NOTE | 2024-02-06 15:18 | A.OFFVIS_ITS ---
Intake Vital Signs 02/06/24 15:18 Height 5 ft 2 in Weight 184 lb 1.376 oz BMI 33.7 BP 126/77 Blood Pressure Location Rt brachial Position Sitting Pulse 117 H Pulse Source Doppler Pulse Oximetry (%) 97 Oxygen Delivery Method Room Air Intake Visit Reasons: Asthma Allergies erythromycin base Allergy (Verified 02/06/24 15:22) Unknown HPI Asthma HPI Details 63-year-old lady, lifetime nonsmoker, fo llowed for underlying moderate persistent allergic asthma.? She has been using Flovent, Singulair, and albuterol MDI with reasonable control of her symptoms, except some seasonal allergic exacerbations. Patient has had essentially unrevealing RAST. She has had COVID in May, but now has almost fully recovered from it. Patient did have recent on prolonged bronchitis for which she has been treated with multiple courses of prednisone, amoxicillin, penicillin V with some improvement, however she still has lingering symptoms. Review of Systems Const Denies daytime sleepiness, Denies excessive sweating, Denies fatigue, Denies fever(s), Denies lethargy, Denies malaise, Denies night sweats, Denies snoring and Denies weight loss Eyes Denies blurry vision and Denies itchy eyes ENT Denies nasal congestion, Denies post nasal drip, Denies sinus pain, Denies sinus pressure and Denies other ( Thrush) Card Denies chest pain, Denies pedal edema, Denies dyspnea, Denies orthopnea and Denies paroxysmal nocturnal dyspnea Resp Denies cough, Denies hemoptysis, Denies excessive phlegm production, Denies dyspnea, Denies snoring and Denies wheezing GI Denies abdominal pain and Denies heartburn Musc Denies myalgias, Denies arthralgias and Denies joint swelling Skin/Breast Denies rash Neuro Denies memory loss and Denies seizure-like activity Psych Denies abnormal sleep pattern, Denies anxiety and Denies memory loss Endo Denies excessive sweating, Denies fatigue and Denies heat intolerance Jaiden/Lymph Denies easy bruising Aller/Immun Denies itchy eyes, Denies seasonal rhinorrhea and Denies wheezing Physical Exam Vital Signs: Last Vital Signs Pulse 117 H 02/06/24 15:18 BP 126/77 02/06/24 15:18 Pulse Ox 97 02/06/24 15:18 Oxygen Delivery Method Room Air 02/06/24 15:18 BMI result Body Mass Index 33.7 Const General: no acute distress and alert Nutritional Appearance: not obese Orientation/consciousness: Other orientation findings ( oriented) HEENT Head: Yes atraumatic Eyes General: appearance normal, both eyes and all related structures Sclerae: sclerae normal EOM: EOMs intact bilaterally Neck Neck: Yes supple Lymphatic: no lymphadenopathy noted Resp Effort & Inspection: normal respiratory effort and no use of accessory muscles Auscultation: clear to auscultation bilaterally Cardio Rate: regular rate Rhythm: regular rhythm Heart sounds: no gallops, no murmurs and no rubs Skin General skin exam: other ( warm) Extrem General: No clubbing, No cyanosis and No edema Assessment & Plan Assessment & Plan (1) Moderate persistent asthma: Code(s): J45.40 - Moderate persistent asthma, uncomplicated Plan: Baseline controlled on Flovent, no longer available, will switch to Arnuity. Continue Singulair. (2) Bronchitis: Code(s): J40 - Bronchitis, not specified as acute or chronic Plan: Chronic bronchitis with poor response to penicillin/amoxicillin. Will treat with a course of Levaquin. Medications: New fluticasone furoate 200 mcg/actuation (Arnuity Ellipta) 1 inh inhalation DAILY 1 ea 6RF 30 days levofloxacin 750 mg PO DAILY 7 tabs 0RF Discontinued fluticasone propionate 110 mcg/actuation (Flovent HFA) Discontinued Reason: Doctor's Order 1 puff PO BID 12 ea 0RF Coding Level of Care Code Est Pt Level 4 (10402) Diagnoses Moderate persistent asthma J45.40 Bronchitis J40
== END 2024-02-06 15:48 | disposition home or self-care (01) ==
PROVIDERS: PCP Internal Medicine; Visit Provider Internal Medicine Pulmonary Disease
DX: J45.40 Moderate persistent asthma, uncomplicated (principal); J40 Bronchitis, not specified as acute or chronic
CPT/HCPCS: 99214

== ENCOUNTER → 2024-02-06 15:12 | Outpatient (BNVA) | payer OTHER, SELFPAY | PROVIDERS: PCP Internal Medicine; Visit Provider Internal Medicine Pulmonary Disease | DX: J45.40 Moderate persistent asthma, uncomplicated (principal); Z91.09 Other allergy status, other than to drugs and biological substances ==

== ENCOUNTER 2024-02-14 15:32 | Outpatient (REF) | payer OTHER, SELFPAY ==
[2024-02-17 07:49] LABS: TS Negative Control Passed; TS Panel A 0; TS Panel B 0; TS Positive Control Passed; TSpotTB Negative (Negative)
== END 2024-02-14 15:33 | disposition home or self-care (01) ==
LOC: HO.LAB 15:32
PROVIDERS: PCP Internal Medicine; Visit Provider Internal Medicine
DX: Z11.1 Encounter for screening for respiratory tuberculosis (principal); E78.00 Pure hypercholesterolemia, unspecified; E89.0 Postprocedural hypothyroidism; I10 Essential (primary) hypertension; Z85.850 Personal history of malignant neoplasm of thyroid
CPT/HCPCS: 36415; 86481

== ENCOUNTER 2024-04-07 16:19 | Emergency (ER) | payer OTHER, SELFPAY ==
--- NOTE | ~2024-04-07 | XR_ITS ---
X-RAY LEFT ANKLE AND LEFT FOOT CLINICAL HISTORY: Pain, injury. COMPARISON: Radiograph left foot 03/18/2016. TECHNIQUE: 2 views of the left ankle and 3 views of the left foot. FINDINGS: Left ankle: Nondisplaced fracture of the lateral malleolus. Ankle mortise is maintained. Diffuse soft tissue swelling. No unexpected radiopaque foreign bodies. Left foot: Subtle irregularity at the level of the head of the fifth metatarsal only visualized in the oblique view of the ankle. 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 Small plantar calcaneal spur. No significant soft tissue abnormality. XR/XR ankle LT min 3V IMPRESSION: 1. Nondisplaced fracture of the lateral malleolus. 2. Subtle irregularity at the level of the head of the fifth metatarsal only visualized in the oblique view of the ankle. Correlate for point tenderness at this site.
--- NOTE | ~2024-04-07 | XR_ITS ---
X-RAY LEFT ANKLE AND LEFT FOOT CLINICAL HISTORY: Pain, injury. COMPARISON: Radiograph left foot 03/18/2016. TECHNIQUE: 2 views of the left ankle and 3 views of the left foot. FINDINGS: Left ankle: Nondisplaced fracture of the lateral malleolus. Ankle mortise is maintained. Diffuse soft tissue swelling. No unexpected radiopaque foreign bodies. Left foot: Subtle irregularity at the level of the head of the fifth metatarsal only visualized in the oblique view of the ankle. 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 Small plantar calcaneal spur. No significant soft tissue abnormality. XR/XR foot LT min 3V IMPRESSION: 1. Nondisplaced fracture of the lateral malleolus. 2. Subtle irregularity at the level of the head of the fifth metatarsal only visualized in the oblique view of the ankle. Correlate for point tenderness at this site.
[2024-04-07 16:21] VITALS: BP 148/73; PULSE 76; RESP 16; TEMP 36.6; O2SAT 98; BMI 32.0
--- NOTE | 2024-04-07 16:22 | ED_ITS ---
HPI - General Adult General Chief complaint: Extremity Injury, Lower Stated complaint: ankle injury Time Seen by Provider: 04/07/24 16:31 Source: patient, family (), RN notes reviewed and old records reviewed Mode of arrival: ambulatory Limitations: no limitations History of Present Illness HPI narrative: 63 year old female presents to the ED today for evaluation of left ted pain/ swelling s/p twist and fall prior to arrival in ED. she states that while stepping down of the bottom stair of her front porch, she felt her left ankle roll. She fell to the ground catching herself with her right arm. No head strike or LOC. Not on anticoagulation. Endorses immediate pain to the lateral aspect of her left ankle. Reports hearing crunching noises and felt a snap in her ankle. She was unable to stand or bear weight on her left ankle. Her had to help her up and drive her to the ED. She did not take any [id number] pain medications prior to arrival in ED today. She denies numbness, weakness, tingling of the left lower extremity. Denies excruciating pain. Denies decreased sensation in the left foot. Related Data Home Medications ?Medication ?Instructions ?Recorded ?Confirmed atorvastatin 40 mg tablet 40 mg PO DAILY 01/20/21 losartan 100 mg tablet 100 mg PO DAILY 01/20/21 montelukast 10 mg tablet 10 mg PO DAILY 01/20/21 hydrochlorothiazide 12.5 mg capsule 12.5 mg PO DAILY 02/06/24 levothyroxine 100 mcg tablet 100 mcg PO DAILY 02/06/24 Previous Rx's ?Medication ?Instructions ?Recorded penicillin V potassium 500 mg 500 mg PO BID 10 days #20 tabs 01/04/24 tablet prednisone 20 mg tablet 20 mg PO DAILY 7 days #7 tabs 01/04/24 fluticasone furoate 200 1 inh inhalation DAILY 30 days #1 02/06/24 mcg/actuation blister powder for ea inhalation (Arnuity Ellipta) levofloxacin 750 mg tablet 750 mg PO DAILY #7 tabs 02/06/24 morphine 15 mg immediate release 15 mg PO Q6H PRN pain (scale score 04/07/24 tablet 7-10) #8 tabs prednisone 20 mg tablet 40 mg (2 x 20 mg) PO DAILY 5 days 04/07/24 #10 tabs Allergies Allergy/AdvReac Type Severity Reaction Status Date / Time erythromycin base Allergy Unknown Verified 04/07/24 16:22 Review of Systems Review of Systems: Constitutional: No fever, chills, fatigue, night sweats, weight changes ENT/Mouth: No ear pain, hearing loss, nasal congestion, sinus pain, rhinorrhea, sore throat Eyes: No eye pain, swelling, redness, vision changes, discharge Cardio: No chest pain, palpitations, FRAZIER, orthopnea, peripheral edema Pulm: No SOB, cough, sputum, wheezing, dyspnea, hemoptysis GI: No nausea, vomiting, hematemesis, abdominal pain, diarrhea, constipation, hematochezia, melena : No irregular bleeding, dysuria, frequency, urgency, hesitancy, hematuria, flank pain, urinary flow changes, urinary incontinence or retention MSK: No back pain, neck pain, joint pain, myalgias, +left ankle pain Skin: No lesions, rashes Neuro: No weakness, numbness, paresthesias, LOC, dizziness, headache Psych: No anxiety/panic, depression, SI/HI, AH/VH All other systems reviewed and are negative. [facility] Past Medical History Attestation statement: The following information was validated with the patient. Source: old records reviewed and nursing notes reviewed Social History Social History Advance Directives: No Advance Directives Information Provided: No Do you have a plan to hurt others: No Plan Physical Exam ED Vital Signs: Vital Signs - 24 hr 04/07/24 16:21 04/07/24 17:27 04/07/24 17:39 Temperature 97.8 F 97.8 F 98.2 F Pulse Rate 76 76 80 Respiratory Rate 16 18 16 Blood Pressure 148/73 H 144/73 H 130/77 Pulse Oximetry 98 98 100 Oxygen Delivery Method Room Air Room Air Room Air BMI result Body Mass Index 32.0 Patient hypertensive, vitals otherwise WNL Const Other: Presents in wheelchair she is unable to ambulate General: cooperative, healthy appearing, comfortable and no acute distress Orientation/consciousness: patient oriented x3 Limitations: no limitations HENMT Head: Yes normal to inspection, Yes No palpable skull fracture present, Yes normocephalic and Yes atraumatic Eyes General: appearance normal, both eyes and all related structures Conjunctivae: conjunctivae normal Sclerae: sclerae normal Pupils: Equal, round and reactive pupils present Neck Neck: Yes normal visual inspection Resp Effort & Inspection: normal respiratory effort and able to speak in complete sentences Auscultation: clear to auscultation bilaterally Cardio Rate: regular rate Rhythm: regular rhythm Back/Spine/Pelvis Other: No midline spinous tenderness or step off deformity. No paraspinal muscle tenderness. Skin General skin exam: no rashes or lesions noted Neuro Other: Strength 5/5 intact throughout. No saddle anesthesia. Sensation intact to light touch. Neurovascular intact distally.?unable to assess gait General: patient oriented x3 Cranial nerves: Yes Equal, round and reactive pupils present Extrem Other: + notable swelling that it to lateral malleolus of left ankle. Tender to palpation. No obvious deformity. Range of motion of left ankle limited secondary to pain/swelling. Full ROM intact to all toes on left foot. 2+ PT/DP pulse. No calf tenderness. No coolness noted to extremity. No pallor. Sensation intact. Course Course Course Narrative: RME performed by Monica Alfred PA-C. Patient is a 63 year old assigned female at presenting to the emergency department with left ankle pain. Patient states she injured her left ankle today after missing a step walking down the porch and is having pain. Detailed physical exam and review of systems are deferred to the director service. Imaging ordered. Patient placed back in the waiting room pending room availability and results. Reevaluation(s) Reevaluation #1: [id number]-- Xrays of left foot/ankle showing fracture left lateral malleolus with question subtle irregularity at head of 5th metatarsal which is only visualized in the oblique view of the ankle. Patient does not have any point tenderness at this site. Discussed all workup results with patient. Morphine given for pain control. Will place in walking boot and provide patient with crutches. advised to call ortho tomorrow to schedule an appointment. Patient has remained stable throughout ED visit today. Discussed worrisome signs and symptoms and when to return to the ED. All questions answered at this time. Patient is agreeable with disposition and stable for discharge. Medications Administered Discontinued Medications Generic Name Dose Route Start Last Admin Trade Name Freq PRN Reason Stop Dose Admin Morphine Sulfate 15 mg 04/07/24 16:58 04/07/24 17:37 Morphine Sulfate Immed Release 15 Mg Tablet PO 04/07/24 16:59 15 mg ONCE ONE Administration Procedures Orthopedic Splinting/Casting Injury #1: Side: left Lower Extremity Injury Location: ankle Lower Extremity Immobilizer: boot orthosis Other Orthopedic Equipment: crutches Medical Decision Making Medical Decision Making MDM Narrative: 63 year old female presents to the ED today for evaluation of left ted pain/ swelling s/p twist and fall prior to arrival in ED. patient hypertensive to 144/73, likely situational. Vitals otherwise WNL. She is nontoxic appearing in no acute distress. Presents to ED in a wheelchair as she is unable to bear weight on her left lower extremity. Unable to assess gait. On exam, there is notable swelling that it to lateral malleolus of left ankle. Tender to palpation. No obvious deformity. Range of motion of left ankle limited secondary to pain/swelling. Full ROM intact to all toes on left foot. 2+ PT/DP pulse. No calf tenderness. No coolness noted to extremity. No pallor. Sensation intact. Differential diagnosis includes ligament/tendon injury., fracture, contusion. Lower suspicion for dislocation, compartment syndrome, NV compromise, threat to limb. Plan for radiographs, pain control, and re-evaluation. Differential Diagnosis Differential Diagnoses: The differential diagnosis associated with the presentation includes as above. Admission/Observation not indicated. Independent Interpretation I performed an independent interpretation of an: Plain X-Ray Interpretation: XR left ankle/foot shows fracture to distal lateral malleolus, agree with radiologist's interpretation. Radiology Impression Discussion of test interpretation with radiology: I have reviewed the radiologist's reading. Radiologist Impression: X-RAY LEFT ANKLE AND LEFT FOOT CLINICAL HISTORY: Pain, injury. COMPARISON: Radiograph left foot 03/18/2016. TECHNIQUE: 2 views of the left ankle and 3 views of the left foot. FINDINGS: Left ankle: Nondisplaced fracture of the lateral malleolus. Ankle mortise is maintained. Diffuse soft tissue swelling. No unexpected radiopaque foreign bodies. Left foot: Subtle irregularity at the level of the head of the fifth metatarsal only visualized in the oblique view of the ankle. 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 Small plantar calcaneal spur. No significant soft tissue abnormality. XR/XR foot LT min 3V IMPRESSION: 1. Nondisplaced fracture of the lateral malleolus. 2. Subtle irregularity at the level of the head of the fifth metatarsal only visualized in the oblique view of the ankle. Correlate for point tenderness at this site. Independent Historian Clinical information obtained from an independent historian. History obtained from or confirmed by: Spouse () External Record Review External record reviewed: Inpatient record, Office record, Outpatient record, Prior outpatient labs, Prior outpatient radiology, Primary care record and Outside ED record Prescription Management I considered prescription management with: Pain Medication (Morphine) and Other (Prednisone) Social Determinants Patient?s care significantly limited by Social Determinants of Health including: Other Social Determinant of Health Critical Care Time Critical Care Time Critical Care Time: Yes Total Critical Care Time: 35 Attestation: Critical care time in the amount of 35 minutes has been provided to the patient in terms of direct patient care, frequent reevaluation, review and interpretation of medical data and results, and management of potentially life- threatening conditions. This is all outside of any medical procedures. Discharge Plan Discharge Clinical Impression: Ankle fracture, lateral malleolus, closed Patient Disposition: Home, Self-Care Instructions: Ankle Fracture (ED), Crutch Instructions (ED), Walking Boot (ED) Additional Instructions: You were evaluated in the ED today for left ankle injury. The x-ray of your ankle/foot shows a nondisplaced fracture of the left lateral malleolus. You have been supplied with a walking boot. Please keep this on to help with stabilization of the ankle. Use crutches to ambulate. Do not bear weight on the left ankle. You may take Tylenol and ibuprofen as needed for pain/discomfort. Morphine is a controlled pain medication that has been sent to your pharmacy for you to take for breakthrough pain. Although morphine is less addictive than other opioid pain medications, please use with caution. Prednisone has been sent to pharmacy to help with inflammation/swelling. If you are diabetic, please monitor sugars as steroids such as prednisone can increase blood sugar. You need to follow-up with ortho regarding today's visit. A referral has been provided to you. Please call them tomorrow morning to make an appointment this week. They will not call you. Return with new or worsening symptoms. In the case of an emergency call 911. [facility]THO: [phone] Prescriptions: New prednisone 20 mg tablet 40 mg PO DAILY 5 Days Qty: 10 0RF morphine 15 mg tablet 15 mg PO Q6H PRN (Reason: pain (scale score 7-10)) Qty: 8 0RF Rx Instructions: Partial Fill upon patient request. No Action prednisone 20 mg tablet 20 mg PO DAILY 7 Days Qty: 7 0RF penicillin V potassium 500 mg tablet 500 mg PO BID 10 Days Qty: 20 0RF montelukast 10 mg tablet 10 mg PO DAILY losartan 100 mg tablet 100 mg PO DAILY atorvastatin 40 mg tablet 40 mg PO DAILY hydrochlorothiazide 12.5 mg capsule 12.5 mg PO DAILY levothyroxine 100 mcg tablet 100 mcg PO DAILY levofloxacin 750 mg tablet 750 mg PO DAILY Qty: 7 0RF Arnuity Ellipta 200 mcg/actuation blister with device 1 inh inhalation DAILY 30 Days Qty: 1 6RF Referrals: [facility] [Provider Group] Felicia Dumont MD [Primary Care Provider] - Stand Alone Forms: Work/School Release Interventions: ED Discharge Assessment Last Done: 04/07/24 17:39 Discharge Date/Time: 04/07/24 17:46 Print Language: [place] Helen[place]
[2024-04-07 17:27] VITALS: BP 144/73; PULSE 76; RESP 18; TEMP 36.6; O2SAT 98
[2024-04-07] MEDS: Morphine Sulfate Immed Release 15 MG TABLET PO (17:37)
[2024-04-07 17:39] VITALS: BP 130/77; PULSE 80; RESP 16; TEMP 36.8; O2SAT 100
== END 2024-04-07 17:46 | disposition home or self-care (01) ==
PROVIDERS: Emergency Provider Emergency Medicine; PCP Internal Medicine
DX: S82.892A Other fracture of left lower leg, initial encounter for closed fracture (principal); M25.572 Pain in left ankle and joints of left foot; W10.9XXA Fall (on) (from) unspecified stairs and steps, initial encounter; Y93.9 Activity, unspecified; Y92.9 Unspecified place or not applicable; Y99.8 Other external cause status; Z79.899 Other long term (current) drug therapy
CPT/HCPCS: 29515; 73610; 73630; 99283; 99284

== ENCOUNTER 2024-04-15 09:18 | Outpatient (AMB) | payer OTHER, SELFPAY ==
--- NOTE | 2024-04-15 09:21 | MHC.OFFVIS ---
Vital Signs 04/15/24 09:26 Height 5 ft 2 in Weight 175 lb BMI 32.0 Intake Visit Reasons: FC-LT Ankle fracture, lateral malleolus, closed Intake Note: Sintia a 63 year old female who presents today for an ER follow up of left ankle fracture, DOI 04/07/24. Patient reports having a fall when she stepped off her porch. She presented to [facility] the same day where x rays were taken, placed in a boot. Currently is having mild pain on the lateral aspect of the ankle, and she notices swelling when has her foot down but when elevated its better. Allergies erythromycin base Allergy (Verified 04/15/24 09:26) Unknown HPI HPI FC-LT Ankle fracture, lateral malleolus, closed: Details: 63-year-old female who presents to the office today for an ER follow-up of left ankle injury after she stepped off her porch and sustained a fall down, 04/07/24. She was seen at ER the same day where x-rays were performed and placed in a boot that she has been wearing as instructed. She currently states she has improvement in her pain however she does have mild pain at the lateral aspect of her ankle as well as tingling at plantar aspect of the foot. She also reports swelling at night and with getting her foot down that alleviates with elevation and in the morning. She uses crutches for support. 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[employer]) Review of Systems Const All systems reviewed & are unremarkable except as noted in HPI and below Physical Exam Vital Signs: BMI result Body Mass Index 32.0 Const General: cooperative, healthy appearing, comfortable, no acute distress, well developed and alert Orientation/consciousness: patient oriented x3 HEENT Head: Yes normal to inspection, Yes normocephalic and Yes atraumatic Eyes General: appearance normal, both eyes and all related structures Resp Effort & Inspection: normal respiratory effort and able to speak in complete sentences Cardio Rate: regular rate Peripheral pulses: Peripheral pulses 2+ throughout GI Palpation (GI): Soft to palpation Skin Lesions: no lesions Rashes: no rashes Neuro General: patient oriented x3 Extrem Other: Left ankle: Normal to inspection. She has minimal tenderness along the lateral malleolus which extends to the 5th metatarsal with mild tenderness over the proximal metatarsal head. No pain over the posterior or medial malleolus. Good sensation throughout and pulses are intact. Office Procedures Fracture Care Fracture Billing Code: Fracture Billing Code Results Reviewed Results Reviewed: xrays of the left foot and ankle obtained in the ED on 04/07/24 IMPRESSION: 1. Nondisplaced fracture of the lateral malleolus. 2. Subtle irregularity at the level of the head of the fifth metatarsal only visualized in the oblique view of the ankle. Correlate for point tenderness at this site. Assessment & Plan Assessment & Plan (1) Closed left ankle fracture: Code(s): S82.892A - Other fracture of left lower leg, initial encounter for closed fracture Category: Medical Qualifiers: Encounter type: initial encounter Qualified Code(s): S82.892A - Other fracture of left lower leg, initial encounter for closed fracture (2) Fracture of 5th metatarsal: Code(s): S92.353A - Displaced fracture of fifth metatarsal bone, unspecified foot, initial encounter for closed fracture Category: Medical Qualifiers: Encounter type: initial encounter Fracture type: closed Physeal involvement: unspecified Laterality: left Qualified Code(s): S92.352A - Displaced fracture of fifth metatarsal bone, left foot, initial encounter for closed fracture Plan She will continue wearing the tall boot weight bearing as tolerated. She will discontinue the use of crutches. I did reinforce importance of elevation throughout the day as her foot swells throughout the day. An order for physical therapy was also placed to work on ROM, gentle strengthening and proprioceptive training that she will begin in 3-4 weeks, at which point she will return to see me back. She will remain out of work until follow-up. Orders: Orders PT Evaluation and Treatment Today S82.892A - Other fracture of left lower leg, initial encounter for closed fracture, S92.353A - Displaced fracture of fifth metatarsal bone, unspecified foot, initial encounter for closed fracture Patient Instructions: Scribed for Trevon Merlos PA-C, by Sam Pizano medical reimbursement manager, on 04/15/2024 at 9:30 AM EST.? I, Trevon Merlos PA-C, have personally reviewed and agree with the information entered by the scribe. Coding Level of Care Code New Pt Level 3 (32372) Diagnoses Closed fracture of left ankle, initial encounter S82.892A Encounter type: initial encounter Closed fracture of fifth metatarsal bone of left foot, physeal involvement unspecified, initial encounter S92.352A Encounter type: initial encounter Fracture type: closed Physeal involvement: unspecified Laterality: left CPT Codes Fracture Care - Fracture Billing Code: Fracture Billing Code ([id number])
[2024-04-15 09:26] VITALS: BMI 32.0
== END 2024-04-15 10:22 | disposition home or self-care (01) ==
PROVIDERS: PCP Internal Medicine; Visit Provider Physician Assistant
DX: S82.892A Other fracture of left lower leg, initial encounter for closed fracture (principal); S92.352A Displaced fracture of fifth metatarsal bone, left foot, initial encounter for closed fracture
CPT/HCPCS: 99203

== ENCOUNTER → 2024-04-15 09:18 | Outpatient (BNVA) | payer OTHER, SELFPAY | PROVIDERS: PCP Internal Medicine; Visit Provider Physician Assistant ==

== ENCOUNTER 2024-05-06 10:45 | Outpatient (AMB) | payer OTHER, SELFPAY ==
--- NOTE | 2024-05-06 11:04 | A.OFFVIS_ITS ---
Vital Signs 05/06/24 11:20 Height 5 ft 2 in Weight 175 lb BMI 32.0 Intake Visit Reasons: 4wk f/u left foot/ankle fx w xrauys Intake Note: Sintia a 63 year old female who presents today for a follow up of left ankle fracture, DOI 04/07/24. Patient reports she is doing well, states weakness and discomfort with ankle exercises. She continues to work with PT. Allergies erythromycin base Allergy (Verified 05/06/24 11:20) Unknown Medication List - Last Reconciled 05/06/24 by Trevon Merlos PA-C atorvastatin 40 mg PO DAILY fluticasone furoate 200 mcg/actuation (Arnuity Ellipta) 1 inh inhalation DAILY 30 days hydrochlorothiazide 12.5 mg PO DAILY levothyroxine 100 mcg PO DAILY losartan 100 mg PO DAILY montelukast 10 mg PO DAILY HPI HPI 4wk f/u left foot/ankle fx w xrauys: Details: 63-year-old female who returns to the office today for a follow-up of left foot fracture, 04/07/24. She states she has improvement in her swelling however she has weakness and discomfort in her foot with ankle exercises. She is working on physical therapy as instructed. She is doing well otherwise and has no other concerns today. 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 She has some tenderness over the distal fibula and into the Achilles tendon. No palpable defect over the Achilles tendon but she does express some tightness in Achilles with dorsiflexion. No pain with plantar flexion. Mild discomfort with eversion against resistance. NVI. Results Reviewed Results Reviewed: Xrays were obtained in the office today and personally reviewed by me of the left ankle show healed distal fib avulsion -no obvious fracture visible along the 5th metatarsal Assessment & Plan Assessment & Plan (1) Closed left ankle fracture: Code(s): S82.892A - Other fracture of left lower leg, initial encounter for closed fracture Category: Medical Qualifiers: Encounter type: initial encounter Qualified Code(s): S82.892A - Other f racture of left lower leg, initial encounter for closed fracture (2) Fracture of 5th metatarsal: Code(s): S92.353A - Displaced fracture of fifth metatarsal bone, unspecified foot, initial encounter for closed fracture Category: Medical Qualifiers: Encounter type: initial encounter Fracture type: closed Laterality: left Physeal involvement: unspecified Qualified Code(s): S92.352A - Displaced fracture of fifth metatarsal bone, left foot, initial encounter for closed fracture Plan She will transition to a lace up ankle brace and continue working on physical therapy for gentle strengthening and proprioceptive training. I encouraged her to work on heel quad stretching at home. She will continue to remain out of work and see me back in 6-8 weeks for a routine follow-up, sooner if needed. Orders: Orders XR ankle LT min 3V Today M25.572 - Pain in left ankle and joints of left foot XR foot LT min 3V Today M79.672 - Pain in left foot Patient Instructions: Scribed for Trevon Merlos PA-C, by Sam Pizano health care / medical job titles, on 05/06/2024 at 10:45 AM EST.? I, Trevon Merlos PA-C, have personally reviewed and agree with the information entered by the scribe. Coding Level of Care Code Global (88034) Diagnoses Closed fracture of left ankle, initial encounter S82.892A Encounter type: initial encounter Closed fracture of fifth metatarsal bone of left foot, physeal involvement unspecified, initial encounter S92.352A Encounter type: initial encounter Fracture type: closed Laterality: left Physeal involvement: unspecified
[2024-05-06 11:20] VITALS: BMI 32.0
== END 2024-05-06 13:09 | disposition home or self-care (01) ==
PROVIDERS: PCP Internal Medicine; Visit Provider Physician Assistant
DX: S82.892A Other fracture of left lower leg, initial encounter for closed fracture (principal); S92.352A Displaced fracture of fifth metatarsal bone, left foot, initial encounter for closed fracture
CPT/HCPCS: 99213

== ENCOUNTER 2024-05-06 15:53 | Outpatient (REF) | payer OTHER, SELFPAY ==
--- NOTE | ~2024-05-06 | XR_ITS ---
EXAMINATION: XR LEFT FOOT AND ANKLE CLINICAL INFORMATION: Pain, injury. COMPARISON: April 07, 2024. TECHNIQUE: 2 views of the left ankle and 3 views of the left foot. FINDINGS: LEFT ANKLE: Previously identified nondisplaced fracture of the lateral malleolus is less conspicuous, suggesting some interval bridging callus formation. Ankle mortise is maintained. LEFT FOOT: Small plantar and dorsal calcaneal spurs. Previously noted subtle irregularity at the level of the head of the fifth metatarsal visualized only on the oblique view of the ankle is similar in appearance. Correlation with clinical exam recommended to determine further management. Mild degenerative changes first metatarsophalangeal joint. XR/XR foot LT min 3V IMPRESSION: 1. Previously identified nondisplaced fracture of the lateral malleolus is less conspicuous, suggesting some interval bridging callus formation. 2. Previously noted subtle irregularity at the level of the head of the fifth metatarsal visualized only on the oblique view of the ankle is similar in appearance. Correlation with clinical exam recommended to determine further management.
--- NOTE | ~2024-05-06 | XR_ITS ---
EXAMINATION: XR LEFT FOOT AND ANKLE CLINICAL INFORMATION: Pain, injury. COMPARISON: April 07, 2024. TECHNIQUE: 2 views of the left ankle and 3 views of the left foot. FINDINGS: LEFT ANKLE: Previously identified nondisplaced fracture of the lateral malleolus is less conspicuous, suggesting some interval bridging callus formation. Ankle mortise is maintained. LEFT FOOT: Small plantar and dorsal calcaneal spurs. Previously noted subtle irregularity at the level of the head of the fifth metatarsal visualized only on the oblique view of the ankle is similar in appearance. Correlation with clinical exam recommended to determine further management. Mild degenerative changes first metatarsophalangeal joint. XR/XR ankle LT min 3V IMPRESSION: 1. Previously identified nondisplaced fracture of the lateral malleolus is less conspicuous, suggesting some interval bridging callus formation. 2. Previously noted subtle irregularity at the level of the head of the fifth metatarsal visualized only on the oblique view of the ankle is similar in appearance. Correlation with clinical exam recommended to determine further management.
== END 2024-05-06 15:54 | disposition home or self-care (01) ==
LOC: HO.HOSX 15:53
PROVIDERS: Visit Provider Physician Assistant
DX: M25.572 Pain in left ankle and joints of left foot (principal); M79.672 Pain in left foot
CPT/HCPCS: 73610; 73630

== ENCOUNTER 2024-06-28 08:12 | Outpatient (REF) | payer OTHER, SELFPAY ==
--- NOTE | ~2024-06-28 | XR_ITS ---
EXAMINATION: XR ANKLE, LEFT XR FOOT, LEFT CLINICAL INFORMATION: Pain. COMPARISON: None available. TECHNIQUE: AP, lateral, and mortise views of the left ankle. AP, lateral, and oblique views of the left foot. FINDINGS: Bony alignment and mineralization are normal. The ankle mortise is intact. No fracture, dislocation or left ankle joint effusion is seen. The previously identified fracture of the distal margin of the fibula now appears healed. Boehler's angle is normal. There are small posterior and plantar calcaneal spurs. There is mild soft tissue swelling adjacent to the lateral malleolus. XR/XR foot LT min 3V IMPRESSION: 1. No fracture, dislocation or left ankle joint effusion is seen. The previously noted distal fibular fracture now appears healed, with bridging callus. 2. There are small calcaneal spurs. 3. There is mild soft tissue swelling adjacent to the lateral malleolus. Electronically signed by: Curtis Love MD 07/22/2024 04:22 PM EDT
--- NOTE | ~2024-06-28 | XR_ITS ---
EXAMINATION: XR ANKLE, LEFT XR FOOT, LEFT CLINICAL INFORMATION: Pain. COMPARISON: None available. TECHNIQUE: AP, lateral, and mortise views of the left ankle. AP, lateral, and oblique views of the left foot. FINDINGS: Bony alignment and mineralization are normal. The ankle mortise is intact. No fracture, dislocation or left ankle joint effusion is seen. The previously identified fracture of the distal margin of the fibula now appears healed. Boehler's angle is normal. There are small posterior and plantar calcaneal spurs. There is mild soft tissue swelling adjacent to the lateral malleolus. XR/XR ankle LT min 3V IMPRESSION: 1. No fracture, dislocation or left ankle joint effusion is seen. The previously noted distal fibular fracture now appears healed, with bridging callus. 2. There are small calcaneal spurs. 3. There is mild soft tissue swelling adjacent to the lateral malleolus. Electronically signed by: Curtis Love MD 07/22/2024 04:22 PM EDT
== END 2024-06-28 08:13 | disposition home or self-care (01) ==
LOC: HO.HOSX 08:12
PROVIDERS: Visit Provider Physician Assistant
DX: S92.353A Displaced fracture of fifth metatarsal bone, unspecified foot, initial encounter for closed fracture (principal); S82.892A Other fracture of left lower leg, initial encounter for closed fracture; Y99.9 Unspecified external cause status; Y92.9 Unspecified place or not applicable; Y93.9 Activity, unspecified
CPT/HCPCS: 73610; 73630

== ENCOUNTER 2024-06-28 08:27 | Outpatient (AMB) | payer OTHER, SELFPAY ==
--- NOTE | 2024-06-28 08:41 | A.OFFVIS_ITS ---
Vital Signs 06/28/24 08:43 Height 5 ft 2 in Weight 172 lb BMI 31.5 Intake Visit Reasons: OV- f/u left foot/ankle fx f/u w xrays Intake Note: Sintia a 63 year old female who presents today for a follow up of left ankle fracture, DOI 04/07/24. Patient reports that she is doing well, she does have continued pain. She states that she increased intensity at physical therapy which triggered significant swelling, because of this they decreased intensity of activity in PT. After this increase of swelling at PT she developed a red spotted rash which has been present for about a week. She is unsure if this is related. Her pain is felt along the base of her toes. Allergies erythromycin base Allergy (Verified 06/28/24 08:44) Unknown HPI HPI OV- f/u left foot/ankle fx f/u w xrays: Details: Sintia is a 63-year-old female who presents today for a follow-up of left ankle fracture, DOI 04/07/24. She reports that she is doing well but she continue to experience pain. She claims that by increasing the intensity of her PT which triggered her swelling, which led to a drop in the level of activity in PT. She states that she increased intensity at physical therapy which triggered significant swelling, because of this they decreased intensity of activity in PT. A red spotted rash that has been there for almost a week appeared after increase in swelling at PT and she is unsure if this is related. She feels pain at the base of her toes. 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[employer]) Review of Systems Const All systems reviewed & are unremarkable except as noted in HPI and below Physical Exam Vital Signs: BMI result Body Mass Index 31.5 Const General: cooperative, healthy appearing, comfortable and no acute distress Orientation/consciousness: patient oriented x3 Neck Neck: Yes normal visual inspection and Yes no JVD Chest Chest palpation & inspection: normal inspection of the chest Resp Effort & Inspection: normal respiratory effort Auscultation: clear to auscultation bilaterally, crackles (no), rales (no), rhonchi (no) and wheezes (no) Cardio Jugular venous distension: no JVD Rate: regular rate Rhythm: regular rhythm Heart sounds: S1 normal heart sound present, S2 normal heart sound present, Murmur heart sound present (no) and Rub heart sound present (no) Neuro General: patient oriented x3 Extrem Other: Left ankle: Normal to inspection. Mild discomfort over the dorsum of the foot, no tenderness along the 5th metatarsal or along the lateral malleolus. No palpable defect over the Achilles tendon but she does express some tightness in Achilles with dorsiflexion. No pain with plantar flexion. Mild discomfort with eversion against resistance. NVI. General: Yes normal to inspection, Yes no pedal edema and Yes no calf tenderness Psych Appearance: grossly normal Mental Status: mental status grossly normal Speech and movement: Normal speech and movement present Results Reviewed Results Reviewed: Xrays were obtained in the office today and personally reviewed by me of the left ankle and foot show well healed fracture Assessment & Plan Assessment & Plan (1) Fracture of 5th metatarsal: Code(s): S92.353A - Displaced fracture of fifth metatarsal bone, unspecified foot, initial encounter for closed fracture Category: Medical Qualifiers: Encounter type: initial encounter Fracture type: closed Laterality: left Physeal involvement: unspecified Qualified Code(s): S92.352A - Displaced fracture of fifth metatarsal bone, left foot, initial encounter for closed fra cture (2) Closed left ankle fracture: Code(s): S82.892A - Other fracture of left lower leg, initial encounter for closed fracture Category: Medical Qualifiers: Encounter type: initial encounter Qualified Code(s): S82.892A - Other fracture of left lower leg, initial encounter for closed fracture Plan She will continue to work with physical therapy. I did reassure her that the symptoms that she is experiencing with swelling and pain with increased activities appear to be normal and should subside with time. I did have her fit for a compression ankle sleeve which she should wear with activities and working. She should take anti-inflammatories as needed, ice and rest at the end of the day and increase activities as tolerated. If symptoms persist or worse, she will contact her office otherwise, follow up as needed. Orders: Orders XR ankle LT min 3V Today M25.572 - Pain in left ankle and joints of left foot XR foot LT min 3V Today M79.672 - Pain in left foot Patient Instructions: Scribed for Trevon Merlos PA-C, by Carlyn Mendosa medical laboratory technical officer, on 06/28/2024 at 8:30 AM PHONG. Trevon Sherman PA-C, have personally reviewed and agree with the information entered by the scribe. Coding Level of Care Code Global (16986) Diagnoses Closed fracture of fifth metatarsal bone of left foot, physeal involvement unspecified, initial encounter S92.352A Encounter type: initial encounter Fracture type: closed Laterality: left Physeal involvement: unspecified Closed fracture of left ankle, initial encounter S82.892A Encounter type: initial encounter
[2024-06-28 08:43] VITALS: BMI 31.5
== END 2024-06-28 09:06 | disposition home or self-care (01) ==
PROVIDERS: PCP Internal Medicine; Visit Provider Physician Assistant
DX: S92.352A Displaced fracture of fifth metatarsal bone, left foot, initial encounter for closed fracture (principal); S82.892A Other fracture of left lower leg, initial encounter for closed fracture
CPT/HCPCS: 99213

== ENCOUNTER 2024-07-08 17:00 | Outpatient (RCR) | payer OTHER, SELFPAY ==
--- NOTE | 2024-05-03 14:08 | MHC.PT.EP ---
[facility] [place] Office [place] Office [place] Office [address] [phone] F: [phone] F: [phone] F: [phone] F: [phone] Physical Therapy Plan of Care Date of Evaluation: 05/03/24 Date of Surgery: Diagnosis: Fracture of LEFT lower leg (From x-ray imaging: Nondisplaced fracture of the lateral malleolus) Displaced fx 5th metatarsal bone (DOI: 04/07/24, NO SURGERY) (RS) Assessment: Patient is a pleasant 63 y.o. female who is referred to PT by Trevon Merlos PA-C with Dx of Fracture of LEFT lower leg (From x-ray imaging: Nondisplaced fracture of the lateral malleolus) Displaced fx 5th metatarsal bone. She did not require surgical intervention. Patient impairments include pain, swelling, limited ankle ROM, ankle weakness, antalgic gait with use of tall walking boot, impaired balance. Patient current functional limitations are walking (previously 1 mile a day), gardening, bend/squat, reciprocal stair use, driving. Patient will benefit from skilled PT to address aforementioned impairments and functional limitations to meet established goals. Frequency and Duration: The patient will be seen 2x/week for 6 weeks Short Term Goals: 3 weeks Patient demonstrates consistency and independence with HEP to self manage symptoms. Patient presents with increased L ankle DF 0 degrees to restore gait pattern once allowed to WB without restrictions. Chcf Goals: 6 weeks Patient presents with increased LEFT ankle inversion 40 degrees to be able to ambulate on uneven surfaces to return to gardening. Patient presents with increased LEFT ankle inversion and eversion strength 4+/5 to be able to perform reciprocal stair use. Treatment Plan: Modalities to reduce pain, spasms and effusion. Manual therapy to restore motion and function. Therapeutic exercise to improve strength and flexibility. Neuromuscular re-education for posture and balance. Therapeutic activities to return to functional activities of daily living. Electronically signed by: Claudia Alejandro, PT, DPT Please sign and return to therapist. Thank you for your referral.
== END 2024-08-21 09:34 | disposition home or self-care (01) ==
LOC: HO.PT 17:00
PROVIDERS: PCP Internal Medicine; Visit Provider Physician Assistant
DX: S82.892D Other fracture of left lower leg, subsequent encounter for closed fracture with routine healing (principal); S92.353D Displaced fracture of fifth metatarsal bone, unspecified foot, subsequent encounter for fracture with routine healing
CPT/HCPCS: 97110; 97112; 97116; 97140; 97161; 97530

== ENCOUNTER 2024-08-22 13:50 | Outpatient (AMB) | payer OTHER, SELFPAY ==
[2024-08-22 13:51] VITALS: BP 140/82; PULSE 85; O2SAT 95; BMI 34.4
--- NOTE | 2024-08-22 13:51 | MHC.OFFVIS ---
Vital Signs 08/22/24 13:51 Height 5 ft 2 in Weight 188 lb BMI 34.4 BP 140/82 H Blood Pressure Location Rt brachial Position Sitting Pulse 85 Pulse Source Doppler Pulse Oximetry (%) 95 Oxygen Delivery Method Room Air Intake Visit Reasons: Asthma Allergies erythromycin base Allergy (Verified 06/28/24 08:44) Unknown HPI HPI Asthma: Details: 63-year-old lady, lifetime nonsmoker, followed for underlying moderate persistent allergic asthma.? She has been using Flovent, Singulair, and albuterol MDI with reasonable control of her symptoms, except some seasonal allergic exacerbations. Patient has had essentially unrevealing RAST. after the last office visit she was switch Flovent to Arnuity secondary to Flovent unavailability, however she can not tolerate powder inhaler, so her symptoms are not as well controlled. Patient is also complain of unrestful sleep, daytime sleepiness, and snoring. 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[employer]) Review of Systems Const Reports daytime sleepiness, Denies excessive sweating, Denies fatigue, Denies fever(s), Reports lethargy, Denies malaise, Denies night sweats, Reports snoring and Denies weight loss Eyes Denies blurry vision and Denies itchy eyes ENT Denies nasal congestion, Denies post nasal drip, Denies sinus pain, Denies sinus pressure and Denies other ( Thrush) Card Denies chest pain, Denies pedal edema, Denies dyspnea, Denies orthopnea and Denies paroxysmal nocturnal dyspnea Resp Denies cough, Denies hemoptysis, Denies excessive phlegm production, Denies dyspnea, Reports snoring and Denies wheezing GI Denies abdominal pain and Denies heartburn Musc Denies myalgias, Denies arthralgias and Denies joint swelling Skin/Breast Denies rash Neuro Denies memory loss and Denies seizure-like activity Psych Denies abnormal sleep pattern, Denies anxiety and Denies memory loss Endo Denies excessive sweating, Denies fatigue and Denies heat intolerance Jaiden/Lymph Denies easy bruising Aller/Immun Denies itchy eyes, Denies seasonal rhinorrhea and Denies wheezing Physical Exam Vital Signs: Last Vital Signs Pulse 85 08/22/24 13:51 BP 140/82 H 08/22/24 13:51 Pulse Ox 95 08/22/24 13:51 Oxygen Delivery Method Room Air 08/22/24 13:51 BMI result Body Mass Index 34.4 Const General: no acute distress and alert Nutritional Appearance: obese Orientation/consciousness: Other orientation findings ( oriented) HEENT Head: Yes atraumatic Eyes General: appearance normal, both eyes and all related structures Sclerae: sclerae normal EOM: EOMs intact bilaterally Neck Neck: Yes supple Lymphatic: no lymphadenopathy noted Resp Effort & Inspection: normal respiratory effort and no use of accessory muscles Auscultation: clear to auscultation bilaterally Cardio Rate: regular rate Rhythm: regular rhythm Heart sounds: no gallops, no murmurs and no rubs Skin General skin exam: other ( warm) Extrem General: No clubbing, No cyanosis and No edema Assessment & Plan Assessment & Plan (1) Moderate persistent asthma: Code(s): J45.40 - Moderate persistent asthma, uncomplicated Category: Medical Plan: patient can not tolerate Arnuity, will switch to generic Flovent. (2) Environmental allergies: Code(s): Z91.09 - Other allergy status, other than to drugs and biological substances Category: Medical Plan: Well controlled on Singulair. Continue current regimen. (3) ANA (obstructive sleep apnea): Code(s): G47.33 - Obstructive sleep apnea (adult) (pediatric) Category: Medical Plan: Unrestful sleep, daytime sleepiness, snoring. [place] Sleepiness Scale score of 15. Will obtain home sleep study. Orders: Orders RT home sleep study Today G47.33 - Obstructive sleep apnea (adult) (pediatric) Medications: New fluticasone propionate 110 mcg/actuation administer with spacer 1 puff inhalation BID 12 grams 3RF J45.40 - Moderate persistent asthma, uncomplicated Discontinued fluticasone furoate 200 mcg/actuation (Arnuity Ellipta) Discontinued Reason: Doctor's Order 1 inh inhalation DAILY 30 days 1 ea 6RF Coding Level of Care Code Est Pt Level 4 (61631) Diagnoses Moderate persistent asthma J45.40 Environmental allergies Z91.09 ANA (obstructive sleep apnea) G47.33
== END 2024-08-22 14:11 | disposition home or self-care (01) ==
PROVIDERS: PCP Internal Medicine; Visit Provider Internal Medicine Pulmonary Disease
DX: J45.40 Moderate persistent asthma, uncomplicated (principal); Z91.09 Other allergy status, other than to drugs and biological substances; G47.33 Obstructive sleep apnea (adult) (pediatric)
CPT/HCPCS: 99214

== ENCOUNTER → 2024-08-22 13:50 | Outpatient (BNVA) | payer OTHER, SELFPAY | PROVIDERS: PCP Internal Medicine; Visit Provider Internal Medicine Pulmonary Disease ==

== ENCOUNTER → 2024-10-16 15:43 | Outpatient (REF) | payer OTHER, SELFPAY | LOC: HO.SL 15:43 | PROVIDERS: PCP Internal Medicine; Visit Provider Internal Medicine Pulmonary Disease | DX: G47.33 Obstructive sleep apnea (adult) (pediatric) (principal) | CPT/HCPCS: 95806 ==

== ENCOUNTER → 2024-10-16 15:53 | Outpatient (BNV) | payer OTHER, SELFPAY | PROVIDERS: PCP Internal Medicine; Visit Provider Internal Medicine | DX: G47.33 Obstructive sleep apnea (adult) (pediatric) (principal) | CPT/HCPCS: 95806 ==

== ENCOUNTER 2024-10-29 13:29 | Outpatient (AMB) | payer OTHER, SELFPAY ==
[2024-10-29 13:33] VITALS: BP 142/86; PULSE 99; O2SAT 97; BMI 34.5
--- NOTE | 2024-10-29 13:33 | MHC.OFFVIS ---
Vital Signs 10/29/24 13:33 Height 5 ft 2 in Weight 188 lb 7.924 oz BMI 34.5 BP 142/86 H Blood Pressure Location Rt brachial Position Sitting Pulse 99 Pulse Source Doppler Pulse Oximetry (%) 97 Oxygen Delivery Method Room Air Intake Visit Reasons: sleep study results Allergies erythromycin base Allergy (Verified 10/29/24 13:38) Unknown HPI HPI sleep study results: Details: 64-year-old lady, lifetime nonsmoker, followed for underlying moderate persistent allergic asthma.? She has been using Flovent, Singulair, and albuterol MDI with reasonable control of her symptoms, except some seasonal allergic exacerbations. Patient has had essentially unrevealing RAST. After the last office visit she was switched back to Flovent secondary to poor tolerance of powder inhaler. She has been doing well until approximately 1 week prior when she started to develop bronchitic symptoms with significant cough that persist. She did complete her home sleep study that showed underlying mild obstructive sleep apnea with AHI of 8. 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[employer]) Review of Systems Const Denies daytime sleepiness, Denies excessive sweating, Denies fatigue, Denies fever(s), Denies lethargy, Denies malaise, Denies night sweats, Denies snoring and Denies weight loss Eyes Denies blurry vision and Denies itchy eyes ENT Denies nasal congestion, Denies post nasal drip, Denies sinus pain, Denies sinus pressure and Denies other ( Thrush) Card Denies chest pain, Denies pedal edema, Denies dyspnea, Denies orthopnea and Denies paroxysmal nocturnal dyspnea Resp Reports cough, Denies hemoptysis, Denies excessive phlegm production, Denies dyspnea, Denies snoring and Denies wheezing GI Denies abdominal pain and Denies heartburn Musc Denies myalgias, Denies arthralgias and Denies joint swelling Skin/Breast Denies rash Neuro Denies memory loss and Denies seizure-like activity Psych Denies abnormal sleep pattern, Denies anxiety and Denies memory loss Endo Denies excessive sweating, Denies fatigue and Denies heat intolerance Jaiden/Lymph Denies easy bruising Aller/Immun Denies itchy eyes, Denies seasonal rhinorrhea and Denies wheezing Physical Exam Vital Signs: Last Vital Signs Pulse 99 10/29/24 13:33 BP 142/86 H 10/29/24 13:33 Pulse Ox 97 10/29/24 13:33 Oxygen Delivery Method Room Air 10/29/24 13:33 BMI result Body Mass Index 34.5 Const General: no acute distress and alert Nutritional Appearance: obese Orientation/consciousness: Other orientation findings ( oriented) HEENT Head: Yes atraumatic Eyes General: appearance normal, both eyes and all related structures Sclerae: sclerae normal EOM: EOMs intact bilaterally Neck Neck: Yes supple Lymphatic: no lymphadenopathy noted Resp Effort & Inspection: normal respiratory effort and no use of accessory muscles Auscultation: clear to auscultation bilaterally Cardio Rate: regular rate Rhythm: regular rhythm Heart sounds: no gallops, no murmurs and no rubs Skin General skin exam: other ( warm) Extrem General: No clubbing, No cyanosis and No edema Assessment & Plan Assessment & Plan (1) Moderate persistent asthma: Code(s): J45.40 - Moderate persistent asthma, uncomplicated Category: Medical Plan: Baseline well controlled on Flovent and albuterol MDI. Now with bronchitic exacerbation with significant cough. Will treat with a course of doxycycline and prednisone. Codeine syrup for symptom relief. (2) ANA (obstructive sleep apnea): Code(s): G47.33 - Obstructive sleep apnea (adult) (pediatric) Category: Medical Plan: Results of home sleep study reviewed, underlying mild obstructive sleep apnea with AHI of 8. Also underlying hypertension and obesity. Will start on APAP of 6-16 cm of water. (3) Environmental allergies: Code(s): Z91.09 - Other allergy status, other than to drugs and biological substances Category: Medical Plan: Well controlled on Singulair. Continue current regimen. Medications: New prednisone 40 mg (2 x 20 mg) PO DAILY 10 tabs 0RF doxycycline monohydrate 100 mg PO BID 14 tabs 0RF codeine-guaifenesin 10-100 mg/5 mL 10 mL PO Q4-6H PRN 473 mL 0RF cough Coding Level of Care Code Est Pt Level 4 (74511) Complex EM visit Add On G2211 Diagnoses Moderate persistent asthma J45.40 ANA (obstructive sleep apnea) G47.33 Environmental allergies Z91.09
--- OUTSIDE RECORDS SUMMARY | 2024-11-05 14:29 | XMS_ITS | Continuity of Care Document ---
Author Organization [facility] Address 2 [facility] [address] [place] [address] Phone [phone] Care Team Providers Care Machine Pecan Picker Name Role Phone Felicia Dumont Care Team Information Coil Cleaner [phone] Problems Active Problems Provider Date Malignant tumor of thyroid gland Vinh iyer M.D. Onset: 12/06/2022 Hyperlipidemia Vinh Nielson M.D. Onset: 0 12/06/2022 Essential hypertension Vinh Nielson M.D. O nset: 12/06/2022 Gastroesophageal reflux disease Vinh collier M.D. Onset: 12/06/2022 Social History Type Date Description Comments Sex Unknown Lives With Spouse Tobacco Use Start: Unknown End: Unknown Quit 1993 Smoking Status Reviewed: 06/05/23 Quit 1993 ETOH Use Occasionally consumes alcoho l Allergies and adverse reactions Active Allergies Criticality Reaction Severity Comments Date Erythromycin Unable to assess criticality 12/06/2022 Medications Active Medications SIG Qnty Indications Order ing Provider Date Levothyroxine [id number] Tablets 1 Tablet By Mouth Daily 2 Tablets On Monday 102tabs Vinh Nielson M.D. 10/07/2022 [id number] Tablets Take 1 Tablet By Mouth Every Day Adlnatty Felicia Rosuvastatin Mtxglpl09cy Tablets Take 1 Tablet By Mouth Every Day Adlakha Felicia Estradiol0.1mg/GM Cream Instill 1 GM Vaginally Daily AT Bedtime. Take Every Night For Two Weeks Then Twi Unknown Montelukast Zjvoaj47uq Tablets Take 1 Tablet By Mouth Every Day Felicia Dumont Ocbmeireoeejaiusbkb87 .5mg Capsules Take 1 Capsule By Mouth Every Day Felicia Dumont Albuterol Sulfate UWU918(90Base) mcg/Act Aerosol Inhale 2 Puffs By Mouth 4 Times A Day as Needed For Asthma Felicia Dumont Flovent MZR806dci/Act Aerosol Inhale 1 puff Orally 2 Times A Day Sanket Villaseñor Medications Administered in Office Medication SIG Qnty Indications Ordering Provider Date Injection Thyrotropin To 10 IuInjection Nurse 02/13/2024 Therapeutic, Prophylactic Or Diagnostic Injection Subq/ImInjection Nurse 02/13/2024 Injection Thyrotropin To 10 IuInjection Nurse 02/12/2024 Therapeutic, Prophylactic Or Diagnostic Injection Subq/ImInjection Nurse 02/12/2024 Injection Thyrotropin To 10 IuInjection Nurse 09/27/2022 Therapeutic, Prophylactic Or Diagnostic Injection Subq/ImInjection Nurse 09/27/2022 Injection Thyrotropin To 10 IuInjection Nurse 09/26/2022 Therapeutic, Prophylactic Or Diagnostic Injection Subq/ImInjection Nurse 09/26/2022 Vital Signs Date Vital Result Comment 07/10/2024 9:21am BP Systolic 130 mmHg BP Diastolic 80 mmHg Heart Rate 72 /min Height 62 inches 5'2 Weight 186.12 lb BMI (Body Mass Index) 34.0 kg/m2 Results Test Acquired Date Facility Test Result H/L Range Note TSH Rfx on Abnormal to Free T4 04/15/2024 [facility] TSH RFX On Abnormal To Free T4 0.111 uIU/mL Low 0.450-4.5 00 T4,Free (Direct) 2.03 ng/dL High 0.82 -1.77 Laboratory test finding 02/20/2024 [facility] TSH RFX On Abnormal To Free T4 <pending> Tgab+Thyroglob ulin, Duyen Or LCMS 02/16/2024 [facility] Thyroglobulin Antibody <1.0 IU/mL 0.0-0.9 1 Thyroglobulin b y Duyen <0.1 ng/mL Low 1.5-38.5 2 Laboratory test finding 01/09/2024 [facility] TSH With Reflex To FT4 0.84 uIU/mL (0.4-4.2) Thyroglobulin,T um or MRKR W/RFLX <1.0 3 Thyroglobulin Reflex Immunoassay <0.1 Low 4 Laboratory test finding 06/03/2023 [facility] TSH With Reflex To FT4 0.06 uIU/mL Low (0.4-4.2) Free T4 1.89 ng/dL High (0.70-1.8 0) Laboratory test finding 03/03/2023 [facility] TSH With Reflex To FT4 <pending> Laboratory test finding 03/02/2023 [facility] TSH With Reflex To FT4 0.05 uIU/mL Low (0.4-4.2) Free T4 2.06 ng/dL High (0.70-1.8 0) Laboratory test finding 12/06/2022 [facility] TSH With Reflex To FT4 <pending> Laboratory test finding 12/03/2022 [facility] Thyroglobulin,Adelaida or MRKR W/RFLX <1.0 5 Thyroglobulin Reflex Immunoassay <0.1 Low 6 1 Thyroglobulin Antibo dy measured by [facility] It should be noted that the presence of thyroglobulin antibodies may not be pathogenic nor diagnostic, especially at very low levels. The assay public policy analyst has found that four percent of individuals without evidence of thyroid disease or autoimmunity will have positive TgAb levels up to 4 IU/mL. 2 According to the [facility] [employer] of Clinical [employer]ochemistry, the reference interval for Thyroglobulin (TG) should be related to euthyroid patients and not for patients who underwent thyroidectomy. TG reference intervals for these patients depend on the residual mass of the thyroid tissue left after surgery. Establishing a post-operative baseline is recommended. The assay limit of quantitation is 0.1 ng/mL Thyroglobulin measured by [facility] 3 Reference range: 0.0 to 0.9 Unit: IU/mL (NOTE) Thyroglobulin Antibody measured by [facility] [place] [facility] It should be noted that the presence of thyroglobulin antibodies may not be pathogenic nor diagnostic, especially at very low levels. The assay public policy analyst has found that four percent of individuals without evidence of thyroid disease or autoimmunity will have positive TgAb levels up to 4 IU/mL. Test performed by [email or web address], [address] [place] [address], [place] [address] 4 Reference range: 1.5 to 38.5 Unit: ng/mL (NOTE) According to the National Academy of Clinical Biochemistry, the reference interval for Thyroglobulin (TG) should be related to euthyroid patients and not for patients who underwent thyroidectomy. TG reference intervals for these patients depend on the residual mass of the thyroid tissue left after surgery. Establishing a post-operative baseline is recommended. The assay limit of quantitation is 0.1 ng/mL Thyroglobulin measured by [facility] [employer] Immunometric Assay Test performed by [email or web address], [address] [place] [address] 5 Reference range: 0.0 to 0.9 Unit: IU/mL (NOTE) Thyroglobulin Antibody measured by [employer] [facility] Test performed by [email or web address], [address] [place] [address] 6 Reference range: 1.5 to 38.5 Unit: ng/mL (NOTE) According to the National Academy of Clinical Biochemistry, the reference interval for Thyroglobulin (TG) should be related to euthyroid patients and not for patients who underwent thyroidectomy. TG reference intervals for these patients depend on the residual mass of the thyroid tissue left after surgery. Establishing a post-operative baseline is recommended. The assay limit of quantitation is 0.1 ng/mL Thyroglobulin measured by [facility] [employer] Immunometric Assay Test performed by [email or web address], [address] [place] [address] Procedures Date Code Description Status 02/13/2024 J3240 Injection Thyrotropin To 10 Iu Completed 02/13/2024 93513 Therapeutic, Prophylactic Or Diagnostic Injection Subq/Im Completed 02/12/2024 J3240 Injection Thyrotropin To 10 Iu Completed 02/12/2024 32480 Therapeutic, Prophylactic Or Diagnostic Injection Subq/Im Completed 09/27/2022 J3240 Injection Thyrotropin To 10 Iu Completed 09/27/2022 55946 Therapeutic, Prophylactic Or Diagnostic Injection Subq/Im Completed 09/26/2022 J3240 Injection Thyrotropin To 10 Iu Completed 09/26/2022 84532 Therapeutic, Prophylactic Or Diagnostic Injection Subq/Im Completed 06/01/2022 71659 Collection Of Capillary Bloo d Specimen Completed Medical Devices Description No Information Available Encounters Type Date Location Provider Dx Diagnosis Office Visit 07/10/2024 9:15a Main Office Vinh Tatum M.D. C73 Malignant neoplasm of thyroid gland Assessments Date Code Description Provider 07/10/2024 C73 Malignant neoplasm of thyroi d gland Vinh Nielson M.D. Plan of Treatment Future Appointment(s):* 07/10/2025 9:15 am - Vinh Nielson M.D. at Main Office 07/10/2024 - Vinh Nielson M.D.* C73 Malignant neoplasm of thyroid gland Functional Status Description No Information Available Mental Status Description No Information Available Referrals Description No Information Available
== END 2024-10-29 13:57 | disposition home or self-care (01) ==
PROVIDERS: PCP Internal Medicine; Visit Provider Internal Medicine Pulmonary Disease
DX: J45.40 Moderate persistent asthma, uncomplicated (principal); G47.33 Obstructive sleep apnea (adult) (pediatric); Z91.09 Other allergy status, other than to drugs and biological substances
CPT/HCPCS: 99214

== ENCOUNTER → 2024-10-29 13:29 | Outpatient (BNVA) | payer OTHER, SELFPAY | PROVIDERS: PCP Internal Medicine; Visit Provider Internal Medicine Pulmonary Disease ==

== ENCOUNTER 2025-01-28 15:18 | Outpatient (AMB) | payer OTHER, SELFPAY ==
--- NOTE | 2025-01-28 15:22 | A.OFFVIS_ITS ---
Vital Signs 01/28/25 15:23 Height 5 ft 2 in Weight 189 lb BMI 34.6 BP 120/67 Blood Pressure Location Lt brachial Position Sitting Pulse 87 Pulse Source Doppler Pulse Oximetry (%) 96 Oxygen Delivery Method Room Air Intake Visit Reasons: martine Allergies erythromycin base Allergy (Verified 01/28/25 15:28) Unknown HPI HPI martine: Details: 64-year-old lady, lifetime nonsmoker, followed for underlying moderate persistent allergic asthma.? She has been using Flovent, Singulair, and albuterol MDI with reasonable control of her symptoms, except some seasonal allergic exacerbations. Patient has had essentially unrevealing RAST. She continues on Flovent secondary to poor tolerance of powder inhaler. After the last office visit patient had multiple upper respiratory viral infections, now with residual postnasal drip that make it difficult for her to use her CPAP. 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[employer]) Review of Systems Const Denies daytime sleepiness, Denies excessive sweating, Denies fatigue, Denies fever(s), Denies lethargy, Denies malaise, Denies night sweats, Denies snoring and Denies weight loss Eyes Denies blurry vision and Denies itchy eyes ENT Reports nasal congestion, Reports post nasal drip, Denies sinus pain, Denies sinus pressure and Denies other ( Thrush) Card Denies chest pain, Denies pedal edema, Denies dyspnea, Denies orthopnea and Denies paroxysmal nocturnal dyspnea Resp Denies cough, Denies hemoptysis, Denies excessive phlegm production, Denies dyspnea, Denies snoring and Denies wheezing GI Denies abdominal pain and Denies heartburn Musc Denies myalgias, Denies arthralgias and Denies joint swelling Skin/Breast Denies rash Neuro Denies memory loss and Denies seizure-like activity Psych Denies abnormal sleep pattern, Denies anxiety and Denies memory loss Endo Denies excessive sweating, Denies fatigue and Denies heat intolerance Jaiden/Lymph Denies easy bruising Aller/Immun Denies itchy eyes, Denies seasonal rhinorrhea and Denies wheezing Physical Exam Vital Signs: Last Vital Signs Pulse 87 01/28/25 15:23 BP 120/67 01/28/25 15:23 Pulse Ox 96 01/28/25 15:23 Oxygen Delivery Method Room Air 01/28/25 15:23 BMI result Body Mass Index 34.6 Const General: no acute distress and alert Nutritional Appearance: obese Orientation/consciousness: Other orientation findings ( oriented) HEENT Head: Yes atraumatic Eyes General: appearance normal, both eyes and all related structures Sclerae: sclerae normal EOM: EOMs intact bilaterally Neck Neck: Yes supple Lymphatic: no lymphadenopathy noted Resp Effort & Inspection: normal respiratory effort and no use of accessory muscles Auscultation: clear to auscultation bilaterally Cardio Rate: regular rate Rhythm: regular rhythm Heart sounds: no gallops, no murmurs and no rubs Skin General skin exam: other ( warm) Extrem General: No clubbing, No cyanosis and No edema Assessment & Plan Assessment & Plan (1) MARTINE (obstructive sleep apnea): Code(s): G47.33 - Obstructive sleep apnea (adult) (pediatric) Category: Medical Plan: Now difficulties CPAP secondary to residual symptoms from multiple upper respiratory infections over the last 3 months. Patient is trying to be more compliant with her CPAP therapy. (2) Moderate persistent asthma: Code(s): J45.40 - Moderate persistent asthma, uncomplicated Category: Medical Plan: Baseline controlled on Flovent and albuterol MDI. With recent multiple upper respiratory exacerbations, now also with postnasal drip, will start on empiric nasal ipratropium. (3) Environmental allergies: Code(s): Z91.09 - Other allergy status, other than to drugs and biological substances Category: Medical Plan: Baseline control on Singulair. Continue current regimen. Medications: New ipratropium bromide administer into each nostril 2 sprays intranasal TID 15 mL 6RF Coding Level of Care Code Est Pt Level 4 (50147) Complex EM visit Add On G2211 Diagnoses MARTINE (obstructive sleep apnea) G47.33 Moderate persistent asthma J45.40 Environmental allergies Z91.09
[2025-01-28 15:23] VITALS: BP 120/67; PULSE 87; O2SAT 96; BMI 34.6
--- OUTSIDE RECORDS SUMMARY | 2025-01-28 19:21 | XMS_ITS | Data Portability ---
Author Organization [facility], [address] Address [address] [place] [address] Assessment No assessment recorded. Plan of Treatment Reminders Order Date Submit Date Provider Last Modified By Organization Details Last Modified Time Details Appointments None recorded. Lab rapid flu (A+B) 2024 025 [email or web address] [address] [place], [address], 5 09:30:43 SARS CoV 2 (COVID-19) Ag, QL, IA, upper respiratory specimen 2024 025 [email or web address] [facility], [address] [place], [address], 5 09:30:43 Referral None recorded. Procedures None recorded. Surgeries None recorded. Imaging None recorded. Medication Orders Augmentin 875 mg-125 mg tablet 2024 025 [id number], [address] [place], [address], 5 09:30:45 Patient TargetsNo targets recorded. Patient Instructions Encounter Date Encounter Id Patient Instructions Last Modified By Organization Details Last Modified Time 12/07/2024 [id number] Acute Sinusitis: Care Instructions [email or web address] Not available 12/07/2024 09:30:43 Reason for Referral None Reported. Results Created Date Observation Date Name Description Value Unit Range Abnormal Flag Note LastModifiedBy Organization Detail LastModifiedTime 01/11/12/07/2024 rapid flu (A+B) Unknown Analyte negati ve Not Available [address] [place] [address] [address] [place] [address], [phone], 12/07/2024 09:08:41 12/07/19 25 12/07/2024 rapid flu (A+B) Unknown Analyte negati ve Not Available [address] [place] [address] [facility] [address] [place] [address], [phone], 12/07/2024 09:08:41 12/07/19 25 12/07/2024 rapid flu (A+B) Unknown Analyte yes Not Available [address] [place], [place] [address] [address] [place] [address], [phone], 12/07/2024 09:08:41 12/07/19 25 12/07/2024 SARS CoV 2 (COVI D-19) Ag, QL, IA, upper respi rator y speci men Unknown Analyte negati ve Not Available [address] [place], [place] [address] [address] [place] [address], [phone], 12/07/2024 09:08:57 12/07/19 25 12/07/2024 SARS CoV 2 (COVI D-19) Ag, QL, IA, upper respi rator y speci men Unknown Analyte yes Not Available [address] [place] [address], [phone], 12/07/2024 09:08:57 Result Notes None recorded. Problems Name Problem SNOMED Code Status Onset Date Resolution Date Notes Provider Name and Address Organization Details Recorded Time Hypertensive disorder 08861567 Active 2024 Fariba O'Graeme null, PA - [facility] 09:06:43 Asthma 212890422 Active 2024 Fariba O'Graeme null, PA - [facility] 09:06:54 Cholesterolosi s of gallbladder 74597149 Active Fariba O'Graeme null, PA - [facility] 5 09:07:12 Problem Notes None recorded. Medical Equipment None Reported. Allergies No known drug allergies Medications Name Sig Start Date Stop Date Status Note LastModified by Organization Details LastModified Time celecoxib 200 mg capsule TAKE 1 CAPSULE BY MOUTH EVERY DAY active Not Available Not Available No t Available prednisone 20 mg tablet TAKE 2 TABLETS BY MOUTH EVERY DAY 12/07 completed Not Available Not Available Not Available penicillin V potassium 500 mg tablet TAKE 1 TABLET ORALLY 2 TIMES A DAY FOR 10 DAYS 12/07 completed Not Available Not Available Not Available doxycycline monohydrate 100 mg tablet TAKE 1 TABLET BY MOUTH TWICE A DAY 12/07 completed Not Available Not Available Not Available levothyroxi ne 100 mcg tablet TAKE 1 TABLET BY MOUTH DAILY AND 2 TABLETS ON MONDAY active Not Available Not Available No t Available hydrochloro thiazide 12.5 mg capsule TAKE 1 CAPSULE BY MOUTH EVERY DAY active Not Available Not Available No t Available hydrocortis one 2.5 % topical cream APPLY TO FACIAL ECZEMA TWICE A DAY NEEDED, UP TO 14 DAYS PER MONTH active Not Available Not Available No t Available montelukast 10 mg tablet TAKE 1 TABLET BY MOUTH EVERY DAY active Not Available Not Available No t Available codeine 10 mg-guaifene sin 100 mg/5 mL oral liquid TAKE 10 ML BY MOUTH EVERY 4 TO 6 HOURS NEEDED FOR COUGH 12/07 completed Not Available Not Available Not Available ibuprofen 600 mg tablet TAKE 1 TABLET BY MOUTH THREE TIMES A DAY WITH FOOD NEEDED active Not Available Not Available No t Available estradiol 0.01% (0.1 mg/gram) vaginal cream INSERT 1 GRAM VAGINALLY EVERY MONDAY AND MONDAY, AT NIGHT. active Not Available Not Available No t Available levofloxaci n 750 mg tablet TAKE 1 TABLET BY MOUTH EVERY DAY 12/07 completed Not Available Not Available Not Available albuterol sulfate HFA 90 mcg/actuati on aerosol inhaler INHALE 2 PUFFS BY MOUTH 4 TIMES A DAY NEEDED FOR ASTHMA active Not Available Not Available No t Available morphine 15 mg immediate release tablet TAKE 1 TABLET BY MOUTH EVERY 6 HOURS NEEDED FOR PAIN SCALE 7-10 12/07 completed Not Available Not Available Not Available betamethaso ne dipropionat e 0.05 % topical ointment APPLY TO AFFECTED AREA TWICE A DAY NEEDED active Not Available Not Available No t Available amoxicillin 875 mg-mignon calabrese clavulanate 125 mg tablet TAKE 1 TABLET BY MOUTH EVERY 12 HOURS FOR 10 DAYS active Not Available Not Available No t Available valsartan 160 mg tablet TAKE 1 TABLET BY MOUTH EVERY DAY active Not Available Not Available No t Available cyclobenzap rine 5 mg tablet TAKE 1-2 TABLETS AT BEDTIME NEEDED FOR SPASM. MAY CAUSE DROWSINES S. 12/07 completed Not Available Not Available Not Available rosuvastati n 20 mg tablet TAKE 1 TABLET BY MOUTH EVERY DAY active Not Available Not Available No t Available Arnuity Ellipta 200 mcg/actuati on powder for inhalation INHALE 1 PUFF EVERY DAY 12/07 completed Not Available Not Available Not Available Vitals Date Recorded Body height Body mass index (BMI) Body weight Oxygen saturation Oxygen saturation in Arterial blood by Pulse oximetry Heart rate Body temperature Systolic blood pressure Diastolic blood pressure Provider Name and Address Organization Details Last Updated DateTime 157.48 cm 33.3 kg/m2 61050.8 1 g 98 % 98 % 84 /min 98.7 [degF] 148 mm[Hg] 85 mm[Hg] Fariba [facility] 09:03:32 Social History Question Answer Notes LastModified by Amanda Huff [employer] Details LastModified Time Tobacco Smoking Status Never Smoker Fariba sanchez PA [facility] 12/07/2024 09:07:40 What Is Your Level Of Alcohol Consumption? Occasional Information not available 12/07/2024 How Many Times Per Week Do You Consume Alcohol? Less Than 1 Time Per Week Information not available 12/07/2024 Are You Currently Employed? Yes Information not available 12/07/2024 Have You Had A Flu Shot This Season? No Information not available 12/07/2024 If No, Would You Like A Flu Shot Today? No Information not available 12/07/2024 What Is Your Relationship Status? Information not available 12/07/2024 Are You Passively Exposed To Smoke? No Information no t available 12/07/2024 Do You Use Any Illicit Or Recreational Drugs? No Information not available 12/07/2024 Have You Recently Traveled Abroad? No Information not available 12/07/2024 Sex: Unknown Functional Status None recorded. Mental Status None recorded. Family History Nothing Reported. Medical History No medical history recorded. Gynecological History Statement/Question Response Is there any chance of ? No LMP N/A Obstetrics History GPAL:G 0 P 0 0 0 0 Past Encounters Encounter ID Performer Location Encounter Start Date Encounter Closed Date Diagnosis/Indication Diagnosis SNOMED-CT Code Diagnosis ICD10 Code Diagnosis Note [id number] [address] [address] [place] [address] 08/03/2015 17:57:58 08/03/2015 18:49:26 [id number] [address] [place] [address] 10/21/2017 12:03:07 10/21/2017 13:04:31 [id number] [address] [address] 09/19/2020 10:29:26 09/19/2020 11:24:37 [id number] [address] [place] [address] 07/02/2020 13:12:42 07/02/2020 14:37:05 [id number] [address] [place] [address] 01/28/2018 15:45:14 01/28/2018 16:43:42 [id number] [address] [address] 02/02/2018 10:23:45 02/02/2018 11:37:01 [id number] [address] [place] [address] 09/28/2019 08:58:58 09/28/2019 10:51:34 [id number] [address] [place] [address] 10/21/2018 08:07:36 10/21/2018 08:34:40 [id number] [facility] [address] [address] 12/22/2018 08:13:26 12/22/2018 09:05:45 [id number] [address] [place] [address] 02/18/2017 09:23:25 02/18/2017 09:47:32 [id number] [address] [place] [address] 04/11/2017 10:02:09 04/11/2017 11:26:13 [id number] [address] [place] [address] 05/18/2019 11:44:02 05/18/2019 12:22:17 [id number] [address] [place] [address] 07/11/2019 10:16:52 07/11/2019 11:01:37 [id number] [address] [address] [place] [address] 04/15/2022 15:38:34 04/15/2022 16:51:35 [id number] [address] [place] [address] 04/20/2017 16:27:34 04/20/2017 17:16:52 [id number] [address] [address] 09/21/2019 10:34:26 09/21/2019 11:06:40 [id number] [facility] [address] [address] 10/21/2016 08:51:17 10/21/2016 09:10:51 [id number] Howard Green DO [address] [place] [address] 12/07/2024 08:47:42 12/07/2024 09:31:38 Acute sinusitis 09065547 J01.90 Given Hx and Sx and PE findings will Rx Antibiotic sc/w home flonase nasal sprayTake your antibiotic with food. Eat a yogurt daily or take a probiotic while you are taking the antibiotic .Reviewed with patient potential adverse side effects of the medication . Recommend humidified airrest, fluidstyle nol/ibu prn Patient advised to follow up as needed for worsening symptoms or no improvemen t. Discussed concerning red flags with patient and reasons to follow up in the Emergency Department urgently. Health Concerns Section Related Observation LastModified by Organization Detai ls LastModified Time None Recorded Concern Status LastModified by Organization Details LastModified Time None Recorded Advance Directives Directive None Recorded Payers Encounter Date Sequence Insurance Name Policy Number Policy Maxwell Covered Member ID Maxwell Member ID Guarantor Name 09/28/2019 1 [facility] [id number] Sintia Hezik Pablo [id number] Sintia Hezik Pablo 07/02/2020 1 [facility] [id number] Sintia Hezik Pablo [id number] Sintia Hezik Pablo 09/19/2020 1 [facility] [id number] Sintia Hezik Pablo [id number] Sintia Hezik Pablo 04/15/2022 1 [facility] [id number] Sintia Hezik Pablo [id number] Sintia Hezik Pablo 12/07/2024 1 [facility] [id number] Sintia Hezik Pablo [id number] Sintia Hezik Pablo Notes Date Note Type Note Provider Name and Address Organization Details Recorded Time 12/07/2024 text/html CoughReported bypatient.Notes:64 yo female c/o cough and congestio x weeks non smoker+ h/o asthma No feverNo chillsNo nauseaNo vomitingNo wheezeNo difficulty breathing or respiratory distressNo CPNo sinus painNo ear painNo sore throatNo Abdominal painNo diarrheaNo myalgiaNo rashNo HANo dizzinessNo recent travelNo known sick contacts Howard Green, DO [address] [place], [address], PA - [facility] 12/07/2024 09:31:08 OBGyn Episode No OBEpisode recorded.
--- OUTSIDE RECORDS SUMMARY | 2025-01-28 19:21 | XMS_ITS | Continuity of Care Document ---
Author Organization [facility] Address 2 [facility] [address] [place] [address] Phone [phone] Care Team Providers Care Torpedo Shooter Name Role Phone Felicia Dumont Care Team Information Porter Baggage [phone] Problems Active Problems Provider Date Malignant tumor [...] Qnty Indications Order ing Provider Date Levothyroxine Axmsev191rge Tablets 1 Tablet By Mouth Daily 2 Tablets On Monday 102tabs Vinh Nielson M.D. 10/07/2022 Rmmvsiwcd355kw Tablets Take 1 Tablet By Mouth Every Day Adlnatty Felicia Rosuvastatin Patvsru44rc Tablets Take 1 Tablet By Mouth Every Day Adlakha Felicia Estradiol0.1mg/GM Cream Instill 1 GM Vaginally Daily AT Bedtime. Take Every Night For Two Weeks Then Twi Unknown Montelukast Zbfclq76lb Tablets Take 1 Tablet By Mouth Every Day Felicia Dumont Qiuzbbasipimyszwrtc46 .5mg Capsules Take 1 Capsule By Mouth Every Day Felicia Dumont Albuterol Sulfate LHR465(90Base) mcg/Act Aerosol Inhale 2 Puffs By Mouth 4 Times A Day as Needed For Asthma Felicia Dumont Flovent YVJ020ytj/Act Aerosol Inhale 1 puff Orally 2 Times A Day Sanekt Villaseñor Medications Administered in Office Medication SIG [...] Low 1.5-38.5 2 Laboratory test finding 01/09/2024 [facility] Lab TSH With Reflex To FT4 0.84 uIU/mL (0.4-4.2) Thyroglobulin,T um or MRKR W/RFLX <1.0 3 Thyroglobulin Reflex Immunoassay <0.1 Low 4 Laboratory test finding 06/03/2023 [facility] Reference Lab TSH With Reflex To FT4 0.06 uIU/mL Low (0.4-4.2) Free T4 1.89 ng/dL High (0.70-1.8 0) Laboratory test finding 03/03/2023 [facility] Reference Lab TSH With Reflex To FT4 <pending> Laboratory test finding 03/02/2023 [facility] Reference Lab TSH With Reflex To FT4 0.05 uIU/mL Low (0.4-4.2) Free T4 2.06 ng/dL High (0.70-1.8 0) Laboratory test finding 12/06/2022 [facility] Reference Lab TSH With Reflex To FT4 <pending> Laboratory test finding 12/03/2022 [facility] Reference Lab Thyroglobulin,Adelaida or MRKR W/RFLX <1.0 5 Thyroglobulin Reflex Immunoassay <0.1 Low 6 1 Thyroglobulin Antibo dy measured by Jarod Billings Methodology It should be noted that the presence of thyroglobulin antibodies may not be pathogenic nor diagnostic, especially at very low levels. The assay director clinical applications has found that four percent of individuals without evidence of thyroid disease or autoimmunity will have positive TgAb levels up to 4 IU/mL. 2 According to the [employer] [employer] Clinical Biochemistry, the [...] IU/mL (NOTE) Thyroglobulin Antibody measured by Jarod Billings Methodology It should be noted that the presence of thyroglobulin antibodies may not be pathogenic nor diagnostic, especially at very low levels. The assay director clinical applications has found that four percent of individuals without evidence of thyroid disease or autoimmunity will have positive TgAb levels up to 4 IU/mL. Test performed by [employer], [address] [place] [address], [place] [address] 4 Reference range: 1.5 to 38.5 Unit: [...] is 0.1 ng/mL Thyroglobulin measured by Jarod [employer] Immunometric Assay Test performed by [facility] [employer], [address] [place] [address] 5 Reference range: 0.0 to 0.9 Unit: IU/mL (NOTE) Thyroglobulin Antibody measured by Medication Review Methodology Test performed by [facility] [employer], [address] [place] [address] 6 Reference range: 1.5 to 38.5 Unit: [...] is 0.1 ng/mL Thyroglobulin measured by Jarod [employer] Immunometric Assay Test performed by [facility] [employer], [address] [place] [address] Procedures Date Code Description Status 02/13/2024 J3240 Injection Thyrotropin To 10 Iu Completed 02/13/2024 73469 Therapeutic, Prophylactic Or Diagnostic Injection Subq/Im Completed 02/12/2024 J3240 Injection Thyrotropin To 10 Iu Completed 02/12/2024 58701 Therapeutic, Prophylactic Or Diagnostic Injection Subq/Im Completed 09/27/2022 J3240 Injection Thyrotropin To 10 Iu Completed 09/27/2022 82580 Therapeutic, Prophylactic Or Diagnostic Injection Subq/Im Completed 09/26/2022 J3240 Injection Thyrotropin To 10 Iu Completed 09/26/2022 11409 Therapeutic, Prophylactic Or Diagnostic Injection Subq/Im Completed 06/01/2022 98847 Collection Of Capillary Bloo d Specimen Completed [...]
== END 2025-01-28 15:50 | disposition home or self-care (01) ==
PROVIDERS: PCP Internal Medicine; Visit Provider Internal Medicine Pulmonary Disease
DX: G47.33 Obstructive sleep apnea (adult) (pediatric) (principal); J45.40 Moderate persistent asthma, uncomplicated; Z91.09 Other allergy status, other than to drugs and biological substances
CPT/HCPCS: 99214

== ENCOUNTER 2025-03-14 06:22 | Outpatient (REF) | payer OTHER, SELFPAY ==
--- OUTSIDE RECORDS SUMMARY | 2025-03-08 08:32 | XMS_ITS | Data Portability ---
Author Organization [facility], [address] Address [address] [place] [address] Assessment No assessment recorded. Plan of Treatment Reminders Order Date Submit Date Provider Last Modified By Organization Details Last Modified Time Details Appointments None recorded. Lab rapid flu (A+B) 2024 025 [email or web address] _[facility], [address] [place], [address], 5 09:30:43 SARS CoV 2 (COVID-19) Ag, QL, IA, upper respiratory specimen 2024 025 [email or web address] _[facility], [address] [place], [address], 5 09:30:43 Referral None recorded. Procedures None recorded. Surgeries None recorded. Imaging None recorded. Medication Orders Augmentin 875 mg-125 mg tablet 2024 025 [facility]/Pharmacy #[id number], [address] [place], [address], 5 09:30:45 Patient TargetsNo targets recorded. Patient Instructions Encounter Date Encounter Id Patient Instructions Last Modified By Organization Details Last Modified Time 12/07/2024 [id number] Acute Sinusitis: Care Instructions [email or web address] Not available 12/07/2024 09:30:43 Reason for Referral None Reported. Results Created Date Observation Date Name Description Value Unit Range Abnormal Flag Note LastModifiedBy Organization Detail LastModifiedTime 01/11/12/07/2024 rapid flu (A+B) Unknown Analyte negati ve Not Available [address] [place] [address] [place] [address], [address], 12/07/2024 09:08:41 12/07/19 25 12/07/2024 rapid flu (A+B) Unknown Analyte negati ve Not Available [address] [place] [address] [facility] [address] [place] [address], [address], 12/07/2024 09:08:41 12/07/19 25 12/07/2024 rapid flu (A+B) Unknown Analyte yes Not Available [address] [place], [place] [address] [address] [place] [address], [address], 12/07/2024 09:08:41 12/07/19 25 12/07/2024 SARS CoV 2 (COVI D-19) Ag, QL, IA, upper respi rator y speci men Unknown Analyte negati ve Not Available [address] [place], [place] [address]inst [address] [place] [address], [address], 12/07/2024 09:08:57 12/07/19 25 12/07/2024 SARS CoV 2 (COVI D-19) Ag, QL, IA, upper respi rator y speci men Unknown Analyte yes Not Available [address] [place] [address], [address], 12/07/2024 09:08:57 Result Notes None recorded. Problems Name Problem SNOMED Code Status Onset Date Resolution Date Notes Provider Name and Address Organization Details Recorded Time Hypertensive disorder 16391198 Active 2024 Fariba O'Graeme null, [place] - [facility] 09:06:43 Asthma 873624357 Active 2024 Fariba O'Graeme null, PA - [facility] 09:06:54 Cholesterolosi s of gallbladder 77084669 Active Fariba O'Graeme null, [facility] - [facility] [...] Last Updated DateTime 157.48 cm 33.3 kg/m2 36736.8 1 g 98 % 98 % 84 /min 98.7 [degF] 148 mm[Hg] 85 mm[Hg] Fariba STEPHENSON [employer] 09:03:32 Social History Question Answer Notes LastModified by [employer] ion Details LastModified Time Tobacco Smoking Status Never Smoker Fariba sanchez PA [facility] [facility] 12/07/2024 09:07:40 What Is Your Level [...] SNOMED-CT Code Diagnosis ICD10 Code Diagnosis Note [id number] [address] [facility] [address] [place] [address] 08/03/2015 17:57:58 08/03/2015 18:49:26 [id number] [address] [place] [address] 10/21/2017 12:03:07 10/21/2017 13:04:31 [id number] [address] [address] 09/19/2020 10:29:26 09/19/2020 11:24:37 [id number] [address] [place] [address] 07/02/2020 13:12:42 07/02/2020 14:37:05 [id number] [address] [place] [address] 01/28/2018 15:45:14 01/28/2018 16:43:42 [id number] [address] [address] 02/02/2018 10:23:45 02/02/2018 11:37:01 [id number] [address] [place] [address] 09/28/2019 08:58:58 09/28/2019 10:51:34 [id number] [address] [place] [address] 7 10/21/2018 08:07:36 10/21/2018 08:34:40 [id number] [address] [facility] [address] [address] 12/22/2018 08:13:26 12/22/2018 09:05:45 [id number] [address] [place] [address] 7 02/18/2017 09:23:25 02/18/2017 09:47:32 [id number] [address] [place] [address] 7 04/11/2017 10:02:09 04/11/2017 11:26:13 [id number] [address] [place] [address] 05/18/2019 11:44:02 05/18/2019 12:22:17 [id number] [address] [place] [address] 07/11/2019 10:16:52 07/11/2019 11:01:37 [id number] [address] [facility] [facility] [address] [facility] [address] [place] [address] 04/15/2022 15:38:34 04/15/2022 16:51:35 [id number] [address] [place] [address] 04/20/2017 16:27:34 04/20/2017 17:16:52 [id number] [address] [address] 09/21/2019 10:34:26 09/21/2019 11:06:40 [id number] [address] [facility] [facility] [facility] [address] [address] 10/21/2016 08:51:17 10/21/2016 09:10:51 [id number] Howard Green DO [address] [place] [address] 12/07/2024 08:47:42 12/07/2024 09:31:38 Acute sinusitis 62755340 J01.90 Given Hx and Sx and PE [...] Guarantor Name 09/28/2019 1 [facility] [id number] Sintia Hezik Pablo [id number] Sintia Hezik Pablo 07/02/2020 1 [facility] [id number] Sintia Hezik Pablo [id number] Sintia Hezik Pablo 09/19/2020 1 [facility] [id number] Sintia Hezik Pablo [id number] Sintia Hezik Pablo 04/15/2022 1 [facility] [id number] Sintia Hezik Pablo [id number] Sintia Hezik Pablo 12/07/2024 1 [facility] [id number] Sintia Hezik Pablo [id number] Sintia Hezik Pablo Notes Date Note Type [...] Green, DO [address] [place], [address], [place] - [facility] 12/07/2024 09:31:08 OBGyn Episode No OBEpisode recorded.
--- OUTSIDE RECORDS SUMMARY | 2025-03-08 08:32 | XMS_ITS | Continuity of Care Document ---
Author Organization [facility] Address 2 [facility] [address] [place] [address] Phone [phone] Care Team Providers Care Survey Researcher Name Role Phone Felicai Dumont Care Team Information Fur Buyer [phone] Problems Active Problems Provider Date Malignant tumor [...] Qnty Indications Order ing Provider Date Levothyroxine Umswxo329txo Tablets 1 Tablet By Mouth Daily 2 Tablets On Monday 102tabs Vinh Nielson M.D. 10/07/2022 Hvakeiysp713ik Tablets Take 1 Tablet By Mouth Every Day Adlnatty Felicia Rosuvastatin Moynsbp97oo Tablets Take 1 Tablet By Mouth Every Day Adlakha Felicia Estradiol0.1mg/GM Cream Instill 1 GM Vaginally Daily AT Bedtime. Take Every Night For Two Weeks Then Twi Unknown Montelukast Neqczz02ri Tablets Take 1 Tablet By Mouth Every Day Felicia Dumont Mrwalushdvpzgpkobvn63 .5mg Capsules Take 1 Capsule By Mouth Every Day Felicia Dumont Albuterol Sulfate EZX553(90Base) mcg/Act Aerosol Inhale 2 Puffs By Mouth 4 Times A Day as Needed For Asthma Felicia Dumont Flovent MQA212dif/Act Aerosol Inhale 1 puff Orally 2 Times [...] Abnormal To Free T4 0.111 uIU/mL Low 0.450-4. 500 T4,Free (Direct) 2.03 ng/dL High 0.82-1.7 7 TSH RFX On Abnormal To Free T4 02/20/2024 [facility] TSH RFX On Abnormal To Free T4 <pending> Tgab+Thyroglobuli n, Duyen Or LCMS 02/16/2024 [facility] Thyroglobulin Antibody <1.0 IU/mL 0.0-0.9 1 Thyroglobulin b y Duyen <0.1 ng/mL Low 1.5-38.5 2 TSH With Reflex To FT4 01/09/2024 [facility] Reference Lab TSH With Reflex To FT4 0.84 uIU/mL (0.4-4.2 ) Thyroglobulin,Adelaida or MRKR W/RFLX 01/09/2024 [facility] Reference Lab Thyroglobulin,Tu mor MRKR W/RFLX <1.0 3 Thyroglobulin Reflex Immunoassay 01/09/2024 [facility] Reference Lab Thyroglobulin Reflex Immunoassay <0.1 Low 4 TSH With Reflex To FT4 06/03/2023 [facility] Reference Lab TSH With Reflex To FT4 0.06 uIU/mL Low (0.4-4.2 ) Free T4 06/03/2023 [facility] Reference Lab Free T4 1.89 ng/dL High (0.70-1. 80) TSH With Reflex To FT4 03/03/2023 [facility] Reference Lab TSH With Reflex To FT4 <pending> TSH With Reflex To FT4 03/02/2023 [facility] Reference Lab TSH With Reflex To FT4 0.05 uIU/mL Low (0.4-4.2 ) Free T4 03/02/2023 [facility] Reference Lab Free T4 2.06 ng/dL High (0.70-1. 80) TSH With Reflex To FT4 12/06/2022 [facility] Reference Lab TSH With Reflex To FT4 <pending> Thyroglobulin,Adelaida or MRKR W/RFLX 12/03/2022 [facility] Reference Lab Thyroglobulin,Tu mor MRKR W/RFLX <1.0 5 Thyroglobulin Reflex Immunoassay 12/03/2022 [facility] Lab Thyroglobulin Reflex Immunoassay <0.1 Low 6 1 Thyroglobulin Antibo dy measured by Jarod Flora Methodology It should be noted that the presence of thyroglobulin antibodies may not be pathogenic nor diagnostic, especially at very low levels. The assay plant engineering supervisor has found that four percent of individuals without evidence of thyroid disease or autoimmunity will have positive TgAb levels up to 4 IU/mL. 2 According to the [employer] Academy of Clinical Biochemistry, the reference interval for Thyroglobulin (TG) should be related to euthyroid patients and not for patients who underwent thyroidectomy. TG reference intervals for these patients depend on the residual mass of the thyroid tissue left after surgery. Establishing a post-operative baseline is recommended. The assay limit of quantitation is 0.1 ng/mL Thyroglobulin measured by Jarod Flora Immunometric Assay 3 Reference range: 0.0 to 0.9 Unit: IU/mL (NOTE) Thyroglobulin Antibody measured by Jarod Roxana Methodology It should be noted that the presence of thyroglobulin antibodies may not be pathogenic nor diagnostic, especially at very low levels. The assay plant engineering supervisor has found that four percent of individuals without evidence of thyroid disease or autoimmunity will have positive TgAb levels up to 4 IU/mL. Test performed by [employer] [facility] [place] [address] 4 Reference range: 1.5 to 38.5 Unit: [...] is 0.1 ng/mL Thyroglobulin measured by Jarod Flora Immunometric Assay Test performed by [employer] [facility] [place] [address] 5 Reference range: 0.0 to 0.9 Unit: IU/mL (NOTE) Thyroglobulin Antibody measured by Jarod Roxana Methodology Test performed [place] [address] 6 Reference range: 1.5 to 38.5 Unit: [...] is 0.1 ng/mL Thyroglobulin measured by Jarod Flora Immunometric Assay Test performed by [employer] [facility] [place] [address] Procedures Date Code Description Status 02/13/2024 J3240 Injection Thyrotropin To 10 Iu Completed 02/13/2024 20593 Therapeutic, Prophylactic Or Diagnostic Injection Subq/Im Completed 02/12/2024 J3240 Injection Thyrotropin To 10 Iu Completed 02/12/2024 95560 Therapeutic, Prophylactic Or Diagnostic Injection Subq/Im Completed 09/27/2022 J3240 Injection Thyrotropin To 10 Iu Completed 09/27/2022 07989 Therapeutic, Prophylactic Or Diagnostic Injection Subq/Im Completed 09/26/2022 J3240 Injection Thyrotropin To 10 Iu Completed 09/26/2022 68895 Therapeutic, Prophylactic Or Diagnostic Injection Subq/Im Completed 06/01/2022 25704 Collection Of Capillary Bloo d Specimen Completed [...]
--- OUTSIDE RECORDS SUMMARY | 2025-03-14 06:24 | XMS_ITS | Data Portability ---
Author Organization [facility], [address] Address [address] [place] [address] Assessment No assessment recorded. Plan of Treatment Reminders Order Date Submit Date Provider Last Modified By Organization Details Last Modified Time Details Appointments None recorded. Lab rapid flu (A+B) 2024 025 [email or web address] _t, [address] [place], [address], 5 09:30:43 SARS CoV 2 (COVID-19) Ag, QL, IA, upper respiratory specimen 2024 025 [email or web address] _[facility], [address] [place], [address], 5 09:30:43 Referral None recorded. Procedures None recorded. Surgeries None recorded. Imaging None recorded. Medication Orders Augmentin 875 mg-125 mg tablet 2024 025 [facility]/Pharmacy #[id number], [address] [place], [address], 5 09:30:45 Patient TargetsNo targets recorded. Patient Instructions Encounter Date Encounter Id Patient Instructions Last Modified By Organization Details Last Modified Time 12/07/2024 [id number] Acute Sinusitis: Care Instructions [email or web address] Not available 12/07/2024 09:30:43 Reason for Referral None Reported. Results Created Date Observation Date Name Description Value Unit Range Abnormal Flag Note LastModifiedBy Organization Detail LastModifiedTime 01/11/12/07/2024 rapid flu (A+B) Unknown Analyte negati ve Not Available [address] [place] [address] [address] [place] [address], [address], 12/07/2024 09:08:41 12/07/19 25 12/07/2024 rapid flu (A+B) Unknown Analyte negati ve Not Available [address] [place] [address] [facility] [address] [place] [address], [address], 12/07/2024 09:08:41 12/07/19 25 12/07/2024 rapid flu (A+B) Unknown Analyte yes Not Available [address] [place], [place] [address]inst [address] [place] [address], [address], 12/07/2024 09:08:41 12/07/19 25 12/07/2024 SARS CoV 2 (COVI D-19) Ag, QL, IA, upper respi rator y speci men Unknown Analyte negati ve Not Available [address] [place], [place] [address] [address] [place] [address], [address], 12/07/2024 09:08:57 12/07/19 25 12/07/2024 SARS CoV 2 (COVI D-19) Ag, QL, IA, upper respi rator y speci men Unknown Analyte yes Not Available [address] [place] [address], [address], 12/07/2024 09:08:57 Result Notes None recorded. Problems Name Problem SNOMED Code Status Onset Date Resolution Date Notes Provider Name and Address Organization Details Recorded Time Hypertensive disorder 27270445 Active 2024 Fariba O'Graeme null, PA - [facility] 09:06:43 Asthma 235715676 Active 2024 Fariba O'Graeme null, PA - [facility] 09:06:54 Cholesterolosi s of gallbladder 97616504 Active Fariba O'Graeme null, [facility] - [facility] [...] Last Updated DateTime 157.48 cm 33.3 kg/m2 42787.8 1 g 98 % 98 % 84 /min 98.7 [degF] 148 mm[Hg] 85 mm[Hg] Fariba STEPHENSON [facility] 09:03:32 Social History Question Answer Notes LastModified by [employer] ion Details LastModified Time Tobacco Smoking Status Never Smoker Fariba sanchez PA [facility] 12/07/2024 09:07:40 What Is Your Level [...] SNOMED-CT Code Diagnosis ICD10 Code Diagnosis Note [id number] [address] [facility] [address] [place] [address] 08/03/2015 17:57:58 08/03/2015 18:49:26 [id number] [address] [place] [address] 10/21/2017 12:03:07 10/21/2017 13:04:31 [id number] [address] [address] 09/19/2020 10:29:26 09/19/2020 11:24:37 [id number] [address] [place] [address] 07/02/2020 13:12:42 07/02/2020 14:37:05 [id number] [address] [place] [address] 7 01/28/2018 15:45:14 01/28/2018 16:43:42 [id number] [address] [address] 02/02/2018 10:23:45 02/02/2018 11:37:01 [id number] [address] [place] [address] 7 09/28/2019 08:58:58 09/28/2019 10:51:34 [id number] [address] [place] [address] 7 10/21/2018 08:07:36 10/21/2018 08:34:40 [id number] [address] [facility] [address] [address] 12/22/2018 08:13:26 12/22/2018 09:05:45 [id number] [address] [place] [address] 7 02/18/2017 09:23:25 02/18/2017 09:47:32 [id number] [address] [place] [address] 7 04/11/2017 10:02:09 04/11/2017 11:26:13 [id number] [address] [place] [address] 7 05/18/2019 11:44:02 05/18/2019 12:22:17 [id number] [address] [place] [address] 7 07/11/2019 10:16:52 07/11/2019 11:01:37 [id number] [address] [facility] [address] [place] [address] 04/15/2022 15:38:34 04/15/2022 16:51:35 [id number] [address] [place] [address] 7 04/20/2017 16:27:34 04/20/2017 17:16:52 [id number] [address] [address] 09/21/2019 10:34:26 09/21/2019 11:06:40 [id number] [facility] [facility] [address] [address] 10/21/2016 08:51:17 10/21/2016 09:10:51 [id number] Howard Green [place] [address] [place] [address] 12/07/2024 08:47:42 12/07/2024 09:31:38 Acute sinusitis 52812664 J01.90 Given Hx and Sx and PE [...] Maxwell Member ID Guarantor Name 09/28/2019 1 [facility] [id number] Sintia Hezik Pablo [id number] Sintia Hezik Pablo 07/02/2020 1 [facility] [id number] Sintia Hezik Pablo [id number] Sintia Hezik Pablo 09/19/2020 1 [facility] [id number] Sintia Hezik Pablo [id number] Sintia Hezik Pablo 04/15/2022 1 [facility] [id number] Sintia Hezik Pablo [id number] Sintia Hezik Pablo 12/07/2024 1 [facility] [id number] Sintia Hezik Pablo [id number] Sintia Hezik Pablo Notes Date Note Type [...] Green, DO [address] [place], [address], [place] - [facility] 12/07/2024 09:31:08 OBGyn Episode No OBEpisode recorded.
[2025-03-14 07:47] LABS: Alanine Aminotransferase 23 U/L (0-31); Anion Gap 9 (12-20); Aspartate Amino Transferase 24 U/L (5-31); Bilirubin Total 0.6 mg/dL (0.0-1.0); Blood Urea Nitrogen 20 mg/dL (9-16); Calcium 8.8 mg/dL (8.4-10.2); Carbon Dioxide 28 mmol/L (22-29); Chloride 110 mmol/L (96-108); Cholesterol 181 mg/dL (<200); Estimated Glomerular Filt Rate > 60; Glucose Random 109 mg/dL (60-115); HDL Cholesterol 51 mg/dL (>40); LDL Cholesterol Calculated 111 mg/dL (<100); Potassium 4.2 mmol/L (3.3-5.1); Sodium 143 mmol/L (135-145); Total Protein 6.6 g/dL (6.5-8.0); Triglycerides 97 mg/dL (<150)
[2025-03-14 08:00] LABS: Alkaline Phosphatase 79 U/L (39-117)
[2025-03-14 08:13] LABS: Thyroid Stimulating Hormone 0.01 uIU/mL (0.32-4.0)
[2025-03-17 11:19] LABS: TS Negative Control Passed; TS Panel A 0; TS Panel B 0; TS Positive Control Passed; TSpotTB Negative (Negative)
== END 2025-03-14 06:23 | disposition home or self-care (01) ==
LOC: HO.LAB 06:22
PROVIDERS: PCP Internal Medicine; Visit Provider Internal Medicine
DX: Z00.00 Encounter for general adult medical examination without abnormal findings (principal); I10 Essential (primary) hypertension; G47.33 Obstructive sleep apnea (adult) (pediatric); E89.0 Postprocedural hypothyroidism; E78.00 Pure hypercholesterolemia, unspecified
CPT/HCPCS: 36415; 80053; 80061; 84443; 86481

== ENCOUNTER 2025-05-03 07:40 | Outpatient (REF) | payer OTHER, SELFPAY ==
--- OUTSIDE RECORDS SUMMARY | 2025-05-03 07:42 | XMS_ITS | Continuity of Care Document ---
Author Organization [facility] Address [address] [facility] [address] [place] [address] Phone [phone] Care Team Providers Care Electronic Integrated Systems Mechanic Name Role Phone Felicia Dumont Care Team Information Phlebotomy Services Technician [phone] Problems Active Problems Provider Date Malignant tumor [...] Qnty Indications Order ing Provider Date Levothyroxine Ptweuo016jjg Tablets 1 Tablet By Mouth Daily 2 Tablets On Monday 102tabs Vinh Nielson M.D. 10/07/2022 Paeipvjwy156ky Tablets Take 1 Tablet By Mouth Every Day Adlnatty Felicia Rosuvastatin Esmzgve84al Tablets Take 1 Tablet By Mouth Every Day Adlakha Felicia Estradiol0.1mg/GM Cream Instill 1 GM Vaginally Daily AT Bedtime. Take Every Night For Two Weeks Then Twi Unknown Montelukast Ozkwku03er Tablets Take 1 Tablet By Mouth Every Day Felicia Dumont Kbuphqocryrnkpedoiq12 .5mg Capsules Take 1 Capsule By Mouth Every Day Felicia Dumont Albuterol Sulfate IFS795(90Base) mcg/Act Aerosol Inhale 2 Puffs By Mouth 4 Times A Day as Needed For Asthma Felicia Dumont Flovent PZK971nqx/Act Aerosol Inhale 1 puff Orally 2 Times [...] 2 TSH With Reflex To FT4 01/09/2024 [facility] TSH With Reflex To FT4 0.84 uIU/mL (0.4-4.2 ) Thyroglobulin,Adelaida or MRKR W/RFLX 01/09/2024 [facility] Thyroglobulin,Tu mor MRKR W/RFLX <1.0 3 Thyroglobulin Reflex Immunoassay 01/09/2024 [facility] Thyroglobulin Reflex Immunoassay <0.1 Low 4 TSH With Reflex To FT4 06/03/2023 [facility] TSH With Reflex To FT4 0.06 uIU/mL Low (0.4-4.2 ) Free T4 06/03/2023 [facility] Free T4 1.89 ng/dL High (0.70-1. 80) TSH With Reflex To FT4 03/03/2023 [facility] TSH With Reflex To FT4 <pending> TSH With Reflex To FT4 03/02/2023 [facility] TSH With Reflex To FT4 0.05 uIU/mL Low (0.4-4.2 ) Free T4 03/02/2023 [facility] Free T4 2.06 ng/dL High (0.70-1. 80) TSH With Reflex To FT4 12/06/2022 [facility] TSH With Reflex To FT4 <pending> Thyroglobulin,Adelaida or MRKR W/RFLX 12/03/2022 [facility] Thyroglobulin,Tu mor MRKR W/RFLX <1.0 5 Thyroglobulin Reflex Immunoassay 12/03/2022 [facility] Thyroglobulin Reflex Immunoassay <0.1 Low 6 1 Thyroglobulin Antibo dy measured by [employer] [place] Methodology It should be noted that the presence of thyroglobulin antibodies may not be pathogenic nor diagnostic, especially at very low levels. The assay hand painter has found that four percent of individuals [...] is 0.1 ng/mL Thyroglobulin measured by [employer] [place] Immunometric Assay 3 Reference range: 0.0 to 0.9 Unit: IU/mL (NOTE) Thyroglobulin Antibody measured by [employer] [place] Methodology It should be noted that the presence of thyroglobulin antibodies may not be pathogenic nor diagnostic, especially at very low levels. The assay hand painter has found that four percent of individuals without evidence of thyroid disease or autoimmunity will have positive TgAb levels up to 4 IU/mL. Test performed by [employer], [employer] [facility] [place] [address] 4 Reference range: 1.5 to 38.5 Unit: [...] is 0.1 ng/mL Thyroglobulin measured by [employer] [place] Immunometric Assay Test performed by [employer] [facility] [place] [address] 5 Reference range: 0.0 to 0.9 Unit: IU/mL (NOTE) Thyroglobulin Antibody measured by [employer] [place] Methodology Test [place] [address] 6 Reference range: 1.5 to 38.5 Unit: [...] is 0.1 ng/mL Thyroglobulin measured by [employer] [place] Immunometric Assay Test performed by [employer] [facility] [place] [address] Procedures Date Code Description Status 02/13/2024 J3240 Injection Thyrotropin To 10 Iu Completed 02/13/2024 48794 Therapeutic, Prophylactic Or Diagnostic Injection Subq/Im Completed 02/12/2024 J3240 Injection Thyrotropin To 10 Iu Completed 02/12/2024 94774 Therapeutic, Prophylactic Or Diagnostic Injection Subq/Im Completed 09/27/2022 J3240 Injection Thyrotropin To 10 Iu Completed 09/27/2022 02663 Therapeutic, Prophylactic Or Diagnostic Injection Subq/Im Completed 09/26/2022 J3240 Injection Thyrotropin To 10 Iu Completed 09/26/2022 06630 Therapeutic, Prophylactic Or Diagnostic Injection Subq/Im Completed 06/01/2022 37495 Collection Of Capillary Bloo d Specimen Completed [...]
== END 2025-05-03 07:41 | disposition home or self-care (01) ==
LOC: HO.MAMMO 07:40
PROVIDERS: PCP Internal Medicine; Visit Provider Internal Medicine
DX: Z12.31 Encounter for screening mammogram for malignant neoplasm of breast (principal)
CPT/HCPCS: 77063; 77067

== ENCOUNTER → 2025-05-03 08:15 | Outpatient (BNV) | payer OTHER, SELFPAY | PROVIDERS: PCP Internal Medicine; Visit Provider Internal Medicine | DX: Z12.31 Encounter for screening mammogram for malignant neoplasm of breast (principal) | CPT/HCPCS: 77063; 77067 ==

== ENCOUNTER → 2025-05-29 08:15 | Outpatient (BNV) | payer OTHER, SELFPAY | PROVIDERS: PCP Internal Medicine; Visit Provider Radiology Diagnostic Radiology | DX: E28.39 Other primary ovarian failure (principal) | CPT/HCPCS: 77080 ==

== ENCOUNTER 2025-05-29 08:16 | Outpatient (REF) | payer OTHER, SELFPAY ==
--- NOTE | ~2025-05-29 | MM_ITS ---
EXAMINATION: DXA BONE DENSITY AXIAL HISTORY: Post menopausal TECHNIQUE: [employer] Dual energy absorptiometry (DEXA) of the lumbar spine, total left hip, and femoral neck was performed. COMPARISON: There are no prior studies for comparison. FINDINGS: The bone mineral density of the lumbar spine is 1.224 g/cm2, corresponding to a T-score of 0.4, and a Z-score of 1.3. This is indicative of normal bone mineral density. The bone mineral density of the left total hip is 1.075 g/cm2, corresponding to a T-score of 0.5, and a Z-score of 1.3. This is indicative of normal bone mineral density. The bone mineral density of the left femoral neck is 0.886 g/cm2, corresponding to a T-score of -1.1, and a Z-score of 0.0. This is indicative of osteopenia. FRACTURE RISK: The FRAX index suggests a risk of major osteoporotic fracture of 12.6%, and of hip fracture 0.9%. MM/XR DEXA axial skeleton IMPRESSION: Based on bone mineral density, and according to World Health Organization (WHO) criteria, the diagnosis is consistent with osteopenia. Statistically, 68% of repeat scans fall within 1 SD (+/- 0.010 g/cm2 for AP spine L1-L4) and 1 SD (+/- 0.012 g/cm2 for femur total) FRAX is a trademark of the [employer] Met[employer] Disease, a World Health Organization (WHO) Collaborating Center. Electronically signed by: David Singer MD 05/29/2025 09:09 AM EDT
--- OUTSIDE RECORDS SUMMARY | 2025-05-29 08:20 | XMS_ITS | Continuity of Care Document ---
Author Organization [facility] Address 2 [facility] [address] [place] [address] Phone [phone] Care Team Providers Care Promotional Model Name Role Phone Felicia Dumont Care Team Information Cycle Touring Guide [phone] Problems Active Problems Provider Date Malignant tumor of thyroid gland Vinh iyer M.D. Onset: 12/06/2022 Hyperlipidemia Vinh Nielson M.D. Onset: 0 12/06/2022 Essential hypertension Vinh Nielson M.D. O nset: 12/06/2022 Gastroesophageal reflux disease Vinh collier M.D. Onset: 12/06/2022 Social History Type Date Description Comments Sex Female Sex Unknown Lives With Spouse Tobacco Use Start: Unknown End: Unknown Quit 1993 Smoking Status Reviewed: 06/05/23 Quit 1993 ETOH Use Occasionally consumes alcoho l Allergies and adverse reactions Active Allergies Criticality Reaction Severity Comments Date Erythromycin Unable to assess criticality 12/06/2022 Medications Active Medications SIG Qnty Indications Order ing Provider Date Levothyroxine Glumro179bwi Tablets 1 Tablet By Mouth Daily 2 Tablets On Monday 102tabs Vinh Nielson M.D. 10/07/2022 Zowpwjkna300ac Tablets Take 1 Tablet By Mouth Every Day AdlObdulio luznima Rosuvastatin Lgszxbv01lw Tablets Take 1 Tablet By Mouth Every Day Adlakha Felicia Estradiol0.1mg/GM Cream Instill 1 GM Vaginally Daily AT Bedtime. Take Every Night For Two Weeks Then Twi Unknown Montelukast Lqluks08dm Tablets Take 1 Tablet By Mouth Every Day Felicia Dumont Zahkrhnxiweihykgnlp79 .5mg Capsules Take 1 Capsule By Mouth Every Day Felicia Dumont Albuterol Sulfate AGN368(90Base) mcg/Act Aerosol Inhale 2 Puffs By Mouth 4 Times A Day as Needed For Asthma Felicia Dumont Flovent EHM160ydx/Act Aerosol Inhale 1 puff Orally 2 Times [...] 2 TSH With Reflex To FT4 01/09/2024 [facility] TSH With Reflex To FT4 0.84 uIU/mL (0.4-4.2 ) Thyroglobulin,Adelaida or MRKR W/RFLX 01/09/2024 [facility] Thyroglobulin,Tu mor MRKR W/RFLX <1.0 3 Thyroglobulin Reflex Immunoassay 01/09/2024 [facility] Thyroglobulin Reflex Immunoassay <0.1 Low 4 TSH With Reflex To FT4 06/03/2023 [facility] TSH With Reflex To FT4 0.06 uIU/mL Low (0.4-4.2 ) Free T4 06/03/2023 [facility] Free T4 1.89 ng/dL High (0.70-1. 80) TSH With Reflex To FT4 03/03/2023 [facility] TSH With Reflex To FT4 <pending> TSH With Reflex To FT4 03/02/2023 [facility] TSH With Reflex To FT4 0.05 uIU/mL Low (0.4-4.2 ) Free T4 03/02/2023 [facility] Free T4 2.06 ng/dL High (0.70-1. 80) TSH With Reflex To FT4 12/06/2022 [facility] TSH With Reflex To FT4 <pending> Thyroglobulin,Adelaida or MRKR W/RFLX 12/03/2022 [facility] Thyroglobulin,Tu mor MRKR W/RFLX <1.0 5 Thyroglobulin Reflex Immunoassay 12/03/2022 [facility] Lab Thyroglobulin Reflex Immunoassay <0.1 Low 6 1 Thyroglobulin Antibo dy measured by [employer] [place] Methodology It should be noted that the presence of thyroglobulin antibodies may not be pathogenic nor diagnostic, especially at very low levels. The assay mental hygiene consultant has found that four percent of individuals without evidence of thyroid disease or autoimmunity will have positive TgAb levels up to 4 IU/mL. 2 According to the [facility] [employer], the reference [...] IU/mL (NOTE) Thyroglobulin Antibody measured by [employer] [place] Methodology It should be noted that the presence of thyroglobulin antibodies may not be pathogenic nor diagnostic, especially at very low levels. The assay mental hygiene consultant has found that four percent of individuals without evidence of thyroid disease or autoimmunity will have positive TgAb levels up to 4 IU/mL. Test performed by [employer], [facility] [place] [address] 4 Reference range: 1.5 to 38.5 Unit: [...] is 0.1 ng/mL Thyroglobulin measured by [employer] [place] Immunometric Assay Test performed by [employer], [address] [place] [address] 5 Reference range: 0.0 to 0.9 Unit: IU/mL (NOTE) Thyroglobulin Antibody measured by [employer] [place] Methodology Test performed by [employer], [address] [place] [address] 6 Reference range: 1.5 to 38.5 Unit: [...] is 0.1 ng/mL Thyroglobulin measured by [employer] [place] Immunometric Assay Test performed by [employer], [address] [place] [address] Procedures Date Code Description Status 02/13/2024 J3240 Injection Thyrotropin To 10 Iu Completed 02/13/2024 76374 Therapeutic, Prophylactic Or Diagnostic Injection Subq/Im Completed 02/12/2024 J3240 Injection Thyrotropin To 10 Iu Completed 02/12/2024 12020 Therapeutic, Prophylactic Or Diagnostic Injection Subq/Im Completed 09/27/2022 J3240 Injection Thyrotropin To 10 Iu Completed 09/27/2022 47848 Therapeutic, Prophylactic Or Diagnostic Injection Subq/Im Completed 09/26/2022 J3240 Injection Thyrotropin To 10 Iu Completed 09/26/2022 35245 Therapeutic, Prophylactic Or Diagnostic Injection Subq/Im Completed 06/01/2022 27649 Collection Of Capillary Bloo d Specimen Completed [...]
--- OUTSIDE RECORDS SUMMARY | 2025-05-29 08:20 | XMS_ITS | Data Portability ---
Author Organization [facility], [address] Address [address] [place] [address] Assessment No assessment recorded. Plan of Treatment Reminders Order Date Submit Date Provider Last Modified By Organization Details Last Modified Time Details Appointments None recorded. Lab rapid flu (A+B) 2024 025 [email or web address] [address] [place], [address], 5 09:30:43 SARS CoV 2 (COVID-19) Ag, QL, IA, upper respiratory specimen 2024 025 [email or web address] [address] [place], [address], 5 09:30:43 Referral None recorded. Procedures None recorded. Surgeries None recorded. Imaging None recorded. Medication Orders Augmentin 875 mg-125 mg tablet 2024 025 [id number], [address] [place], [address], 5 09:30:45 Patient TargetsNo targets recorded. Patient Instructions Encounter Date Encounter Id Patient Instructions Last Modified By Organization Details Last Modified Time 12/07/2024 [id number] Acute Sinusitis: Care Instructions [email or web address] Not available 12/07/2024 09:30:43 Reason for Referral None Reported. Results Created Date Observation Date Name Description Value Unit Range Abnormal Flag Note LastModifiedBy Organization Detail LastModifiedTime 12/07/19 25 12/07/2024 rapid flu (A+B) Unknown Analyte negati ve Not Available [facility] [address] [place] [address], [phone], 12/07/2024 09:08:41 12/07/19 25 12/07/2024 rapid flu (A+B) Unknown Analyte negati ve Not Available [address] [place] [address] [facility] [address] [place] [address], [phone], 12/07/2024 09:08:41 12/07/19 25 12/07/2024 rapid flu (A+B) Unknown Analyte yes Not Available [address] [place] [address], [phone], 12/07/2024 09:08:41 12/07/19 25 12/07/2024 SARS CoV 2 (COVI D-19) Ag, QL, IA, upper respi rator y speci men Unknown Analyte negati ve Not Available [facility] [address] [place] [address], [phone], 12/07/2024 09:08:57 12/07/19 25 12/07/2024 SARS CoV 2 (COVI D-19) Ag, QL, IA, upper respi rator y speci men Unknown Analyte yes Not Available [address] [place] [address], [phone], 12/07/2024 09:08:57 Result Notes None recorded. Problems Name Problem SNOMED Code Status Onset Date Resolution Date Notes Provider Name and Address Organization Details Recorded Time Hypertensive disorder 33495382 Active 2024 Fariba O'Graeme null, PA - [facility] 09:06:43 Asthma 558123089 Active 2024 Fariba O'Graeme null, PA - [facility] 09:06:54 Cholesterolosi s of gallbladder 35420164 Active [facility] - [facility] 09:07:12 Problem Notes None recorded. Medical Equipment [...] Not Available No t Available amoxicillin 875 mg-billu m clavulanate 125 mg tablet TAKE 1 TABLET [...] Last Updated DateTime 157.48 cm 33.3 kg/m2 60681.8 1 g 98 % 98 % 84 /min 98.7 [degF] 148 mm[Hg] 85 mm[Hg] Fariba Ocsar [facility] - [facility] 09:03:32 Social History Question Answer Notes LastModified by [employer] Details LastModified Time Tobacco Smoking Status Never Smoker Fariba sanchez PA - [facility] 12/07/2024 09:07:40 Have You Had A Flu Shot This Season? No Information not available 12/07/2024 If No, Would You Like A Flu Shot Today? No Information not available 12/07/2024 What Is Your Relationship Status? Information not available 12/07/2024 Are You Passively Exposed To Smoke? No Information no t available 12/07/2024 Have You Recently Traveled Abroad? No Information not available 12/07/2024 Sex: Unknown Functional Status Question Answer Note LastModified by Independent IPat ion Details LastModified Time How many times per week do you consume alcohol? Less than 1 time per week Information not available 12/07/2024 Do you use any illicit or recreational drugs? No Information not available 12/07/2024 What is your level of alcohol consumption? Occasional Information not available 12/07/2024 Are you currently employed? Yes Information not available 12/07/2024 Mental Status None recorded. Family History Nothing Reported. Medical History No medical history recorded. Gynecological History Statement/Question Response Is there any chance of ? No LMP N/A Obstetrics History GPAL:G 0 P 0 0 0 0 Past Encounters Encounter ID Performer Location Encounter Start Date Encounter Closed Date Diagnosis/Indication Diagnosis SNOMED-CT Code Diagnosis ICD10 Code Diagnosis Note [id number] [facility] [address] [facility] [address] [place] [address] 08/03/2015 17:57:58 08/03/2015 18:49:26 [id number] [address] [address] [address] 10/21/2017 12:03:07 10/21/2017 13:04:[id number] [place] [address] [address] [address] 09/19/2020 10:29:26 09/19/2020 11:24:[id number] [place] [address] [address] [address] 07/02/2020 13:12:42 07/02/2020 14:37:[id number] [place] [address] [address] [address] 01/28/2018 15:45:14 01/28/2018 16:43:[id number] [place] [address] [address] [facility] [address] [place] [address] 02/02/2018 10:23:45 02/02/2018 11:37:[id number] [place] [address] [address] [address] 09/28/2019 08:58:58 09/28/2019 10:51:[id number] [place] [address] 10/21/2018 08:07:36 10/21/2018 08:34:[id number] [place] [address] 12/22/2018 08:13:26 12/22/2018 09:05:[id number] [place] [address] 02/18/2017 09:23:25 02/18/2017 09:47:32 [id number] [address] [place] [address] 04/11/2017 10:02:09 04/11/2017 11:26:13 [id number] [address] [place] [address] 05/18/2019 11:44:02 05/18/2019 12:22:17 [id number] [address] [place] [address] 07/11/2019 10:16:52 07/11/2019 11:01:37 [id number] [address] [place] [address] 04/15/2022 15:38:34 04/15/2022 16:51:35 [id number] [address] [place] [address] 04/20/2017 16:27:34 04/20/2017 17:16:52 [id number] [address] [place] [address] 09/21/2019 10:34:26 09/21/2019 11:06:40 [id number] [address] [place] [address] 10/21/2016 08:51:17 10/21/2016 09:10:51 [id number] Howard Green DO [address] [address] [place] [address] 12/07/2024 08:47:42 12/07/2024 09:31:38 Acute sinusitis 78385190 J01.90 Given Hx and Sx and PE [...] Recorded Advance Directives Directive None Recorded Payers Insurance Date Sequence Insurance Name Policy Number Policy Maxwell Covered Member ID Maxwell Member ID Guarantor Name 12/07/2024 1 [facility] [id number] Sintia Shah [id number] Sintia Shah Notes Date Note Type Note Provider Name and Address Organization Details Recorded Time 12/07/2024 text/html CoughReported bypatient.Notes:64 yo female c/o cough and congestio x weeks non smoker+ h/o asthma No feverNo chillsNo nauseaNo vomitingNo wheezeNo difficulty breathing or respiratory distressNo CPNo sinus painNo ear painNo sore throatNo Abdominal painNo diarrheaNo myalgiaNo rashNo HANo dizzinessNo recent travelNo known sick contacts Howard Green DO [address] [place], [address], PA - [facility] 12/07/2024 09:31:08 OBGyn Episode No OBEpisode recorded.
--- OUTSIDE RECORDS SUMMARY | 2025-05-29 08:20 | XMS_ITS ---
Author Name [facility] Organization Unknown Encounters Encounter Type Encounter Reason Primary Diagnosis Location Date Ambulatory [facility] ([facility] 12/07/2024
--- OUTSIDE RECORDS SUMMARY | 2025-05-29 08:20 | XMS_ITS | Patient Health Record ---
Author Organization [facility] Address [address] [place] [address] Care Team Providers Care Information Management Specialist Name Role Phone Felicia Dumont Primary Care Provider David Neely [phone] Allergies Allergen (clinical drug ingredient) Drug/Non Drug Allergy documented on EMR Reaction Allergy Type Onset Date Status erythromycin e-mycin (uncoded) Unknown Allergy Active Reason For Referral No Information Medications Medication SIG (Take, Route, Fr equency, Duration) Notes Start Date End Date Status PriLOSEC Active Multivitamin Active Suprep Bowel Prep 1 kit as directed Oral ly as directed for 1 dose 09/04/2013 Active Diovan HCT Active Simvastatin Active Claritin Active Albuterol Sulfate HFA Active Problems Problem Type SNOMED Code ICD Code Onset Dates Problem Status W/U Status Risk Notes Problem Irritable bowel syndrome (49869056) Irritable bowel syndrome (564.1) Active confirmed Problem Diarrhea (19333348) Diarrhea (787.91) Active confirmed Problem Colon cancer screening (302699438) Colon cancer screening (V76.51) Active confirmed Problem Gastroesophageal reflux disease (772159445) GERD (gastroesopha geal reflux disease) (530.81) Active confirmed Plan Of Treatment Pending Test Test Name Order Date CELIAC PANEL #10 09/04/2013 Future Test Test Name Order Date COLONOSCOPY 09/04/2013 Insurance Providers Payer Name Payer Address Payer Phone Subscriber Number Group Number Insured Name Patient Relationship to Insured Coverage Start Date Coverage End Date [facility] [address] [place] [phone] [id number] CORTEZ ALMONTE Self - patient is the insured Medical (General) History Medical History History ICD Code Denies [place],DM,CVA,renal disease EGD in 10/2003-small HH and no sig. 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
== END 2025-05-29 08:17 | disposition home or self-care (01) ==
LOC: HO.MAMMO 08:16
PROVIDERS: PCP Internal Medicine; Visit Provider Internal Medicine
DX: Z13.820 Encounter for screening for osteoporosis (principal); Z78.0 Asymptomatic menopausal state
CPT/HCPCS: 77080

== ENCOUNTER 2025-07-25 13:49 | Outpatient (AMB) | payer OTHER, SELFPAY ==
[2025-07-25 13:54] VITALS: BP 128/77; PULSE 98; O2SAT 97; BMI 34.2
--- NOTE | 2025-07-25 13:54 | A.OFFVIS_ITS ---
Vital Signs 07/25/25 13:54 Height 5 ft 2 in Weight 187 lb BMI 34.2 BP 128/77 Blood Pressure Location Rt brachial Position Sitting Pulse 98 Pulse Source Pulse Oximeter Pulse Oximetry (%) 97 Oxygen Delivery Method Room Air Intake Visit Reasons: Obstructive sleep apnea Allergies erythromycin base Allergy (Verified 01/28/25 15:28) Unknown HPI HPI Obstructive sleep apnea: Details: 65-year-old lady, lifetime nonsmoker, followed for underlying moderate persistent allergic asthma and ANA.? She has been using Flovent, Singulair, and albuterol MDI with reasonable control of her symptoms, except some seasonal allergic exacerbations. Patient has had essentially unrevealing RAST. She continues on Flovent secondary to poor tolerance of powder inhaler. She does have an acute exacerbation requiring prednisone. Patient continues to try to get used to her CPAP. 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) Review of Systems Const Denies daytime sleepiness, Denies excessive sweating, Denies fatigue, Denies fever(s), Denies lethargy, Denies malaise, Denies night sweats, Denies snoring and Denies weight loss Eyes Denies blurry vision and Denies itchy eyes ENT Denies nasal congestion, Denies post nasal drip, Denies sinus pain, Denies sinus pressure and Denies other ( Thrush) Card Denies chest pain, Denies pedal edema, Denies dyspnea, Denies orthopnea and Denies paroxysmal nocturnal dyspnea Resp Reports cough, Denies hemoptysis, Denies excessive phlegm production, Denies dyspnea, Denies snoring and Reports wheezing GI Denies abdominal pain and Denies heartburn Musc Denies myalgias, Denies arthralgias and Denies joint swelling Skin/Breast Denies rash Neuro Denies memory loss and Denies seizure-like activity Psych Denies abnormal sleep pattern, Denies anxiety and Denies memory loss Endo Denies excessive sweating, Denies fatigue and Denies heat intolerance Jaiden/Lymph Denies easy bruising Aller/Immun Denies itchy eyes, Denies seasonal rhinorrhea and Reports wheezing Physical Exam Vital Signs: Last Vital Signs Pulse 98 07/25/25 13:54 BP 128/77 07/25/25 13:54 Pulse Ox 97 07/25/25 13:54 Oxygen Delivery Method Room Air 07/25/25 13:54 BMI result Body Mass Index 34.2 Const General: no acute distress and alert Nutritional Appearance: not obese Orientation/consciousness: Other orientation findings ( oriented) HEENT Head: Yes atraumatic Eyes General: appearance normal, both eyes and all related structures Sclerae: sclerae normal EOM: EOMs intact bilaterally Neck Neck: Yes supple Lymphatic: no lymphadenopathy noted Resp Effort & Inspection: normal respiratory effort and no use of accessory muscles Auscultation: wheezes (Mild bilateral) Cardio Rate: regular rate Rhythm: regular rhythm Heart sounds: no gallops, no murmurs and no rubs Skin General skin exam: other ( warm) Extrem General: No clubbing, No cyanosis and No edema Assessment & Plan Assessment & Plan (1) Moderate persistent asthma: Code(s): J45.40 - Moderate persistent asthma, uncomplicated Category: Medical Plan: Overall control on Flovent and albuterol MDI, now with an acute exacerbation, will treat with a course of prednisone. (2) ANA (obstructive sleep apnea): Code(s): G47.33 - Obstructive sleep apnea (adult) (pediatric) Category: Medical Plan: Patient continues to improve her CPAP compliance that is complicated by several recent bronchitic exacerbations when she was not able to use her CPAP machine. (3) Environmental allergies: Code(s): Z91.09 - Other allergy status, other than to drugs and biological substances Category: Medical Plan: Reasonable control on Singulair. Continue current regimen. Medications: New prednisone 40 mg (2 x 20 mg) PO DAILY 8 tabs 0RF ipratropium-albuterol 0.5 mg-3 mg(2.5 mg base)/3 mL 3 mL inhalation Q4-6H PRN 180 mL 3RF wheezing Coding Level of Care Code Est Pt Level 4 (95955) Complex EM visit Add On G2211 Diagnoses Moderate persistent asthma J45.40 ANA (obstructive sleep apnea) G47.33 Environmental allergies Z91.09
--- OUTSIDE RECORDS SUMMARY | 2025-07-25 13:54 | XMS_ITS | Patient Health Record ---
Author Organization [facility] Address [address] [place] [address] Care Team Providers Care Stitching Machine Setter Name Role Phone Felicia Dumont Primary Care Provider David Neely [phone] Allergies Allergen (clinical drug ingredient) Drug/Non Drug [...] Status Risk Notes Problem Irritable bowel syndrome (89970193) Irritable bowel syndrome (564.1) Active confirmed Problem Diarrhea (30475912) Diarrhea (787.91) Active confirmed Problem Colon cancer screening (892476477) Colon cancer screening (V76.51) Active confirmed Problem Gastroesophageal reflux disease (397353276) GERD (gastroesopha geal reflux disease) (530.81) Active confirmed Plan Of Treatment Pending Test Test Name Order Date CELIAC PANEL #10 09/04/2013 Future Test Test Name Order Date COLONOSCOPY 09/04/2013 Insurance Providers Payer Name Payer Address Payer Phone Subscriber Number Group Number Insured Name Patient Relationship to Insured Coverage Start Date Coverage End Date [facility] [address] [place] [phone] [id number] CORTEZ ALMONTE Self - patient is the insured Medical (General) History Medical History History ICD Code Denies NE,DM,CVA,renal disease EGD in 10/2003-small HH and no sig. 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
--- OUTSIDE RECORDS SUMMARY | 2025-07-25 13:54 | XMS_ITS | Continuity of Care Document ---
Author Organization [facility] Address [address] [facility] [address] [place] [address] Phone [phone] Care Team Providers Care Range Mounter Name Role Phone Felicia Dumont Care Team Information Garment Folder [phone] Problems Active Problems Provider Date Malignant tumor of thyroid gland Vinh iyer M.D. Onset: 12/06/2022 Hyperlipidemia Vinh Nielson M.D. Onset: 0 12/06/2022 Essential hypertension Vinh Nielson M.D. O nset: 12/06/2022 Gastroesophageal reflux disease Vinh collier M.D. Onset: 12/06/2022 Social History Type Date Description Comments Sex Female Sex Unknown Lives With Spouse Tobacco Use Start: Unknown End: Unknown Quit 1993 ETOH Use Occasionally consumes alcoho l Allergies and adverse reactions Active Allergies Criticality Reaction Severity Comments Date Erythromycin Unable to assess criticality 12/06/2022 Medications Active Medications SIG Qnty Indications Order ing Provider Date Wegovy0.25mg/0.5ML Solution Auto-Inject inject 0.5 mg weekly for one month 2ml Vinh Nielson M.D. 07/10/2025 Levothyroxine [id number] Tablets 1 Tablet By Mouth Daily 2 Tablets On Monday 102tabs Vinh Nielson M.D. 10/07/2022 [id number] Tablets Take 1 Tablet By Mouth Every Day Adlakburt Felicia Rosuvastatin Mybxrue12qr Tablets Take 1 Tablet By Mouth Every Day Adlakburt Felicia Estradiol0.1mg/GM Cream Instill 1 GM Vaginally Daily AT Bedtime. Take Every Night For Two Weeks Then Twi Unknown Montelukast Wxmykz49ne Tablets Take 1 Tablet By Mouth Every Day Felicia Dumont Albuterol Sulfate COV226(90Base) mcg/Act Aerosol Inhale 2 Puffs By Mouth 4 Times A Day as Needed For Asthma Felicia Dumont Flovent WXW089lfc/Act Aerosol Inhale 1 puff Orally 2 Times A Day Remy Villaseñory Medications Administered in Office Medication SIG Qnty [...] 09/26/2022 Vital Signs Date Vital Result Comment 07/10/2025 9:14am BP Systolic 126 mmHg BP Diastolic 70 mmHg Heart Rate 72 /min Height 62 inches 5'2 Weight 187.00 lb BMI (Body Mass Index) 34.2 kg/m2 Results Test Acquired Date Facility Test Result H/L Range Note CMP12+7ac+RPR 07/06/2025 [facility] Glucose 104 mg/dL High 70-99 Uric Acid 5.7 mg/dL 3.0-7.2 1 BUN 15 mg/dL 8-27 Creatinine 0.74 mg/dL 0.57-1.00 eGFR 90 mL/min/1.7 3 >59 Sodium 141 mmol/L 134-144 Potassium 4.6 mmol/L 3.5-5.2 Chloride 105 mmol/L 96-106 Calcium 9.0 mg/dL 8.7-10.3 Phosphorus 3.8 mg/dL 3.0-4.3 Protein, Total 6.3 g/dL 6.0-8.5 Albumin 4.2 g/dL 3.9-4.9 Bilirubin, Total 0.3 mg/dL 0.0-1 .2 Alkaline Phosphatase 87 IU/L 44-121 LDH 191 IU/L 119-226 Alt (SGPT) 17 IU/L 0-32 GGT 11 IU/L 0-60 Cholesterol, Total 161 mg/dL 100-199 Triglycerides 72 mg/dL 0-149 Ast (Sgot) 22 IU/L 0-40 RPR Non Reactive Non Reactive Tgab+Thyroglobul in, Duyen Or LCMS 07/06/2025 [facility] Thyroglobulin Antibody <1.0 IU/mL 0.0-0.9 2 Thyroglobulin b y Duyen <0.1 ng/mL Low 1.5-38.5 3 TSH Rfx on Abnormal to Free T4 04/15/2024 [facility] TSH RFX On Abnormal To Free T4 0.111 uIU/mL Low 0.450-4.50 0 T4,Free (Direct) 2.03 ng/dL High 0.82 -1.77 TSH RFX On Abnormal To Free T4 02/20/2024 [facility] TSH RFX On Abnormal To Free T4 <pending> Tgab+Thyroglobul in, Duyen Or LCMS 02/16/2024 [facility] Thyroglobulin Antibody <1.0 IU/mL 0.0-0.9 4 Thyroglobulin b y Duyen <0.1 ng/mL Low 1.5-38.5 5 TSH With Reflex To FT4 01/09/2024 [facility] TSH With Reflex To FT4 0.84 uIU/mL (0.4-4.2) Thyroglobulin,Tu mor MRKR W/RFLX 01/09/2024 [facility] Thyroglobulin,Tu mor MRKR W/RFLX <1.0 6 Thyroglobulin Reflex Immunoassay 01/09/2024 [facility] Thyroglobulin Reflex Immunoassay <0.1 Low 7 TSH With Reflex To FT4 06/03/2023 [facility] TSH With Reflex To FT4 0.06 uIU/mL Low (0.4-4.2) Free T4 06/03/2023 [facility] Free T4 1.89 ng/dL High (0.70-1.80 ) TSH With Reflex To FT4 03/03/2023 [facility] TSH With Reflex To FT4 <pending> TSH With Reflex To FT4 03/02/2023 [facility] TSH With Reflex To FT4 0.05 uIU/mL Low (0.4-4.2) Free T4 03/02/2023 [facility] Free T4 2.06 ng/dL High (0.70-1.80 ) TSH With Reflex To FT4 12/06/2022 [facility] TSH With Reflex To FT4 <pending> Thyroglobulin,Jaime graves MRKR W/RFLX 12/03/2022 [facility] Thyroglobulin,Jaime graves MRKR W/RFLX <1.0 8 Thyroglobulin Reflex Immunoassay 12/03/2022 [facility] Thyroglobulin Reflex Immunoassay <0.1 Low 9 1 Therapeutic target f or gout patients: <6.0 2 Thyroglobulin Antibo dy measured by Jarod Lynn Methodology It should be noted that the presence of thyroglobulin antibodies may not be pathogenic nor diagnostic, especially at very low levels. The assay baseball coach has found that four percent of individuals without evidence of thyroid disease or autoimmunity will have positive TgAb levels up to 4 IU/mL. 3 According to the [facility] [employer]ochemistry, the reference interval for Thyroglobulin (TG) should be related to euthyroid patients and not for patients who underwent thyroidectomy. TG reference intervals for these patients depend on the residual mass of the thyroid tissue left after surgery. Establishing a post-operative baseline is recommended. The assay limit of quantitation is 0.1 ng/mL Thyroglobulin measured by Jarod Lynn Immunometric Assay 4 Thyroglobulin Antibo dy measured by Jarod Roxana Methodology It should be noted that the presence of thyroglobulin antibodies may not be pathogenic nor diagnostic, especially at very low levels. The assay baseball coach has found that four percent of individuals without evidence of thyroid disease or autoimmunity will have positive TgAb levels up to 4 IU/mL. 5 According to the [place] [place] [employer], the reference interval for Thyroglobulin (TG) should be related to euthyroid patients and not for patients who underwent thyroidectomy. TG reference intervals for these patients depend on the residual mass of the thyroid tissue left after surgery. Establishing a post-operative baseline is recommended. The assay limit of quantitation is 0.1 ng/mL Thyroglobulin measured by Jarod Lynn Immunometric Assay 6 Reference range: 0.0 to 0.9 Unit: IU/mL (NOTE) Thyroglobulin Antibody measured by Jarod Roxana Methodology It should be noted that the presence of thyroglobulin antibodies may not be pathogenic nor diagnostic, especially at very low levels. The assay baseball coach has found that four percent of individuals without evidence of thyroid disease or autoimmunity will have positive TgAb levels up to 4 IU/mL. Test performed by [employer], [employer] [facility] [place] [address] 7 Reference range: 1.5 to 38.5 Unit: ng/mL [...] Thyroglobulin measured by Jarod Roxana Immunometric Assay Test performed by [employer], [place] [address] 8 Reference range: 0.0 to 0.9 Unit: IU/mL (NOTE) Thyroglobulin Antibody measured by Jarod Lynn Methodology Test performed by [employer], [place] [address] 9 Reference range: 1.5 to 38.5 Unit: ng/mL [...] is 0.1 ng/mL Thyroglobulin measured by Jarod Lynn Immunometric Assay Test performed by [employer], [place] [address] Procedures Date Code Description Status 02/13/2024 J3240 Injection Thyrotropin To 10 Iu Completed 02/13/2024 45870 Therapeutic, Prophylactic Or Diagnostic Injection Subq/Im Completed 02/12/2024 J3240 Injection Thyrotropin To 10 Iu Completed 02/12/2024 59667 Therapeutic, Prophylactic Or Diagnostic Injection Subq/Im Completed 09/27/2022 J3240 Injection Thyrotropin To 10 Iu Completed 09/27/2022 64190 Therapeutic, Prophylactic Or Diagnostic Injection Subq/Im Completed 09/26/2022 J3240 Injection Thyrotropin To 10 Iu Completed 09/26/2022 00179 Therapeutic, Prophylactic Or Diagnostic Injection Subq/Im Completed 06/01/2022 19349 Collection Of Capillary Bloo d Specimen Completed Medical Devices Description No Information Available Encounters Type Date Location Provider Dx Diagnosis Office Visit 07/10/2025 9:15a Main Office Vinh Tatum M.D. C73 Malignant neoplasm of thyroid gland E66.9 Obesity, unspecified Assessments Date Code Description Provider 07/10/2025 C73 Malignant tumor of thyroid g land Vinh Nielson M.D. 07/10/2025 E66.9 Obesity Vinh iyer M.D. Plan of Treatment Future Appointment(s):* 07/02/2026 9:00 am - Vinh Nielson M.D. at Main Office 07/10/2025 - Vinh Nielson M.D.* C73 Malignant tumor of thyroid gland * E66.9 Obesity * * New Xrays:* Ultrasound Thyroid, Scheduled: 08/13/25 Functional Status Description No Information Available Mental Status Description No Information Available Referrals Description No Information Available
== END 2025-07-25 14:30 | disposition home or self-care (01) ==
LOC: HO.HPS 13:50
PROVIDERS: PCP Internal Medicine; Visit Provider Internal Medicine Pulmonary Disease
DX: J45.40 Moderate persistent asthma, uncomplicated (principal); G47.33 Obstructive sleep apnea (adult) (pediatric); Z91.09 Other allergy status, other than to drugs and biological substances
CPT/HCPCS: 99214; G2211

== ENCOUNTER → 2025-11-10 14:16 | Outpatient (REF) | payer OTHER, SELFPAY ==
--- OUTSIDE RECORDS SUMMARY | 2025-11-10 20:43 | XMS_ITS | Clinical Summary ---
Author Organization [address] Address [address] [place] [address] Phone Care Team Providers Care Drafter Cartographic Name Role Phone Physician, Pcp Unknown Primary Care Provider Hanna vailable Encounters Date Type Department Care Team Description 09/25/2025 Lab Requisition [facility] - Main Lab [address] [facility] [place] [address] Felicia Dumont MD Encounter for screening for malignant neoplasm of cervix from Last 3 Months Social History Tobacco Use Types Packs/Day Years Used Date Smoking Tobacco: Never Assessed Comments Unknown Sex and Gender Information Value Date Recorded Sex Assigned at Not on file Legal Sex Female 7:37 PM EST Gender Identity Not on file Sexual Orientation Not on file Plan of Treatment Health Maintenance Due Date Last Done Comments Breast Cancer Screening 1960 Colorectal Cancer Screening: Colonoscopy 1960 COVID-19 Vaccine (#1) 1965 DTaP,Tdap,and Td Vaccines (1 - Tdap) 1979 Pneumococcal Vaccine: 50+ Ye ars (1 of 2 - PCV) 1979 Zoster Vaccines (1 of 2) 1979 RSV Immunization Adult Patie nts (1 - Risk 50-74 years 1-dose series) 2010 Depression Screening 11/27/2024 Influenza Vaccine (#1) 2025 Cholesterol Screening (Lipid Panel) 09/30/2025 Falls Risk Assessment 09/30/2025 Hepatitis C Screening 09/30/2025 Hypertension/CHF/CAD Annual BMP Blood Test 09/30/2025 Osteoporosis Screening (Bone Density Screening) 09/30/2025 Social Influencers of Health Screening 09/30/2025 Cervical Cancer Screening: HPV 09/22/2030 09/22/2025 HIB Vaccines Aged Out No longer eligi ble based on patient's age to complete this topic HPV Vaccines Aged Out No longer eligi ble based on patient's age to complete this topic Hepatitis A Vaccines Aged Out No long er eligible based on patient's age to complete this topic Hepatitis B Vaccines Aged Out No long er eligible based on patient's age to complete this topic IPV Vaccines Aged Out No longer eligi ble based on patient's age to complete this topic MMR Vaccines Aged Out No longer eligi ble based on patient's age to complete this topic Meningococcal ACWY Vaccine Aged Out N o longer eligible based on patient's age to complete this topic Meningococcal B Vaccine Aged Out No l onger eligible based on patient's age to complete this topic RSV Immunization Patients Un dennis 20 months Aged Out No longer eligible b ased on patient's age to complete this topic Varicella Vaccines Aged Out No longer eligible based on patient's age to complete this topic Procedures Procedure Name Priority Date/Time Associated Diagnosis Comments PAP SMEAR Routine 09/22/2025 12:00 AM EDT Encounter for screening for malignant neoplasm of cervix HPV WITH REFLEX GENOTYPE Routine 09/22/2025 12:00 AM EDT Encounter for screening for malignant neoplasm of cervix from Last 3 Months Results * HPV with reflex genotype (09/22/2025 12:00 AM EDT) HPV Negative Negative LAB MICROBIOLOGY METHOD 09/26/2025 1:48 PM EDT [facility] Brushing/Spatula Cervix uteri structure / Unknown 09/22/2025 09/25/2025 2:18 PM EDT us Felicia Dumont MD LAB MOLECULAR DIAGNOSTICS ORD ERABLES Final Result [facility] [address] [place] [address], * Pap smear (09/22/2025 12:00 AM EDT) Interpretation Negative for intraepithelial lesion or malignancy 09/30/2025 10:41 AM EST [facility] at 1041 EST General Categorization Negative 09/30/2025 10:41 AM [facility] Specimen Adequacy Satisfactory for evaluation, endocervical/melton sformation zone component absent 09/30/2025 10:41 AM [facility] Pap Methodology Liquid Based Pap Test 09/30/2025 10:41 AM [facility] Disclaimer The Pap test is a screening test which carries an inherent false negative rate. These test results should be correlated with the patient's clinical findings and history. This Pap test was processed using an automated screening system. Technical cytopathology services provided by [facility], at [address] [place] [id number] (CLIA # [id number]/Andrew Fine MD, Electrical Prospecting Engineer.) 09/30/2025 10:41 AM [facility] Console Pap Interpretation Reported 09/30/2025 10:41 AM [facility] Brushing/Spatula Cervix uteri structure / Unknown 09/22/2025 09/25/2025 2:18 PM EDT us Felicia Dumont MD LAB CYTOLOGY ORDERABLES Final Result [facility] [address] [place] [address], from Last [address] [facility] Care Teams Drafter Cartographic Relationship Specialty Start Date End Date Physician, Pcp Unknown PCP - General 09/27/25
--- OUTSIDE RECORDS SUMMARY | 2025-11-10 20:43 | XMS_ITS | Data Portability ---
Author Organization [facility], [address] Address [address] [place] [address] Assessment No assessment recorded. Plan of Treatment Reminders Order Date Submit Date Provider Last Modified By Organization Details Last Modified Time Details Appointments None recorded. Lab rapid flu (A+B) 2024 025 [email or web address] [facility], [address] [place], [address], 5 09:30:43 SARS CoV 2 (COVID-19) Ag, QL, IA, upper respiratory specimen 2024 025 [email or web address] [facility], [address] [place], [address], 5 09:30:43 Referral None recorded. Procedures None recorded. Surgeries None recorded. Imaging None recorded. Medication Orders Augmentin 875 mg-125 mg tablet 2024 025 [facility]acy #[id number], [address] [place], [address], 5 09:30:45 Patient TargetsNo targets recorded. Patient Instructions Encounter Date Encounter Id Patient Instructions Last Modified By Organization Details Last Modified Time 12/07/2024 [id number] Acute Sinusitis: Care Instructions [email or web address] Not available 12/07/2024 09:30:43 Reason for Referral None Reported. Results Created Date Observation Date Name Description Value Unit Range Abnormal Flag Note LastModifiedBy Organization Detail LastModifiedTime 12/07/19 25 12/07/2024 rapid flu (A+B) Unknown Analyte negati ve Not Available [facility] [address] [place] [address], [phone], 12/07/2024 09:08:41 12/07/19 25 12/07/2024 rapid flu (A+B) Unknown Analyte negati ve Not Available [address] [place] [address] [facility] [address] [place] [address], [phone], 12/07/2024 09:08:41 12/07/19 25 12/07/2024 rapid flu (A+B) Unknown Analyte yes Not Available [address] [place] [address], [phone], 12/07/2024 09:08:41 12/07/19 25 12/07/2024 SARS CoV 2 (COVI D-19) Ag, QL, IA, upper respi rator y speci men Unknown Analyte negati ve Not Available [facility] [address] [place] [address], [phone], 12/07/2024 09:08:57 12/07/19 25 12/07/2024 SARS CoV 2 (COVI D-19) Ag, QL, IA, upper respi rator y speci men Unknown Analyte yes Not Available [address] [place] [address], [phone], 12/07/2024 09:08:57 Result Notes None recorded. Problems Name Problem SNOMED Code Status Onset Date Resolution Date Notes Provider Name and Address Organization Details Recorded Time Cholesterolosi s of gallbladder 56964529 Active Fariba O'Graeme null, PA - [facility] 09:07:12 Hypertensive disorder 87613509 Active 2024 Fariba O'Graeme null, PA - [facility] 09:06:43 Asthma 271170801 Active 2024 Fariba O'Graeme null, PA - [facility] 5 09:06:54 Problem Notes None recorded. Medical Equipment None [...] mass index (BMI) Body weight Oxygen saturation Heart rate Body temperature Systolic And Diastolic Provider Name and Address Organization Details Last Updated DateTime 157.48 cm 33.3 kg/m2 97727.8 1 g 98 % 84 /min 98.7 [degF] 148/85 mm[Hg] Fariba Oscar PA [employer] [facility] 09:03:32 Social History Question Answer Notes LastModified by TweetUpat ion Details LastModified Time Tobacco Smoking Status Never Smoker Fariba sanchez PA Pricing Assistant [facility] 12/07/2024 09:07:40 Have You Had A [...] Functional Status Question Answer Note LastModified by Organizat ion Details LastModified Time How many times [...] Diagnosis SNOMED-CT Code Diagnosis ICD10 Code Diagnosis IMO Codes Diagnosis Note [id number] [facility] [address] [place] [address] 08/03/2015 17:57:58 08/03/2015 18:49:26 [id number] 2099[facility] [address] [address] 10/21/2017 12:03:07 10/21/2017 13:04:31 [id number] 2099[facility] [address] [address] [place] [address] 09/19/2020 10:29:26 09/19/2020 11:24:[id number] [place] [address] [facility] [address] [place] [address] 07/02/2020 13:12:42 07/02/2020 14:37:[id number] [place] [address] [address] [address] [place] [address] 01/28/2018 15:45:14 01/28/2018 16:43:[id number] [place], [place] [address] [address] [place] [address] 02/02/2018 10:23:45 02/02/2018 11:37:01 [id number] [facility] [address] [address] [place] [address] 09/28/2019 08:58:58 09/28/2019 10:51:34 [id number] [facility] [address] [place] [address] 10/21/2018 08:07:36 10/21/2018 08:34:40 [id number] [address] [place] [address] 12/22/2018 08:13:26 12/22/2018 09:05:[id number] [place] [address] 02/18/2017 09:23:25 02/18/2017 09:47:32 [id number] [place] [address] 04/11/2017 10:02:09 04/11/2017 11:26:13 [id number] [address] [place] [address] 05/18/2019 11:44:02 05/18/2019 12:22:17 [id number] [address] [place] [address] 07/11/2019 10:16:52 07/11/2019 11:01:37 [id number] [address] [place] [address] 04/15/2022 15:38:34 04/15/2022 16:51:35 [id number] [address] [place] [address] 04/20/2017 16:27:34 04/20/2017 17:16:52 [id number] [address] [place] [address] 09/21/2019 10:34:26 09/21/2019 11:06:40 [id number] [address] [place] [address] 7 10/21/2016 08:51:17 10/21/2016 09:10:51 [id number] [place] [address] [address] 12/07/2024 08:47:42 12/07/2024 09:31:38 Acute sinusitis 10390542 J01.90 Given Hx and Sx and PE [...] ID Maxwell Member ID Guarantor Name 12/07/[address] [place] [address] [id number] Sintia Shah [id number] Sintia Shah Notes Date Note Type Note Provider Name and Address Organization Details Recorded Time 12/07/2024 text/html CoughReported by [email or web address] yo female c/o cough and congestio x weeks non smoker+ h/o asthma No feverNo chillsNo nauseaNo vomitingNo wheezeNo difficulty breathing or respiratory distressNo CPNo sinus painNo ear painNo sore throatNo Abdominal painNo diarrheaNo myalgiaNo rashNo HANo dizzinessNo recent travelNo known sick contacts ROS as noted in the HPI Howard Green DO [address] [place], [address], PA - [facility] 12/07/2024 09:31:08 OBGyn Episode No OBEpisode recorded.
--- OUTSIDE RECORDS SUMMARY | 2025-11-10 20:43 | XMS_ITS | Clinical Summary ---
Author Organization [facility] Address [address] [facility] [address] [place] [address] Phone Care Team Providers Care Tromper Name Role Phone Felicia Dumont MD Primary Care Provider Allergies Active Allergy Reactions Criticality Noted Date Comments Erythromycin GI Upset Medium 05/01/2015 Other reaction(s): severe abd cramps, vomiting House Dust Mite Wheezing 08/23/2023 Mold Wheezing 08/23/2023 Medications montelukast (SINGULAIR) 10 mg tablet Take 1 tablet by mouth every morning. 3 Active loratadine (CLARITIN) 10 mg tablet Take 10 mg by mouth daily. Active valsartan (DIOVAN) 160 MG tablet Take 1 tablet by mouth every morning. 3 Active rosuvastatin (CRESTOR) 20 MG tablet Take 1 tablet by mouth every morning. 3 Active levothyroxine (SYNTHROID, LEVOTHROID) 100 MCG tablet Take 1 tablet by mouth every morning. 3 Active FLOVENT HFA 110 mcg/actuation inhaler Inhale 1 puff into the lungs 2 (two) times a day. 3 Active estradioL (ESTRACE) 0.01 % (0.1 mg/gram) vaginal cream Place 1 g vaginally. 2 Active albuterol 90 mcg/actuation inhaler Inhale 2 puffs into the lungs every 6 (six) hours as needed for wheezing. Active cholecalciferol (VITAMIN D3) 4,000 unit tablet Take 1,000 Units by mouth daily. Active fluticasone propionate (FLONASE) 50 mcg/actuation nasal spray 1 spray by Nasal route daily. Active ondansetron (ZOFRAN-ODT) 4 MG disintegrating tablet Take 1 tablet (4 mg total) by mouth every 8 (eight) hours as needed for nausea. 6 tablet Active Active Problems Problem Noted Date Diagnosed Date Thyroid nodule 08/23/2023 08/23/2023 Hypertension 08/23/2023 08/23/2023 Hyperlipidemia 08/23/2023 08/23/2023 Gastro-esophageal reflux disease with esophagiti s 08/23/2023 08/23/2023 Class 1 obesity 08/23/2023 08/23/2023 Chronic GERD 08/23/2023 08/23/2023 Arthritis 08/23/2023 08/23/2023 Asthma 08/23/2023 08/23/2023 Malignant tumor of thyroid gland 12/06/2022 Immunizations No known immunizations Social History Tobacco Use Types Packs/Day Years Used Date Smoking Tobacco: Former Cigarettes Smokeless Tobacco: Never Tobacco Cessation:Counseling Given: Not Answered Education Answer Date Recorded Are you interested in more education? Not on ez e 08/23/2023 Are you concerned about learning? Not on file 08/23/2023 No 08/23/2023 No 08/23/2023 Digital Access Answer Date Recorded No 08/23/2023 No 08/23/2023 Reliable internet access at home? Not on file 08/23/2023 Device with a working camera? Not on file Comments Unknown Sex and Gender Information Value Date Recorded Sex Assigned at Not on file Legal Sex Female 4:36 PM EDT Gender Identity Not on file Sexual Orientation Not on file Last Filed Vital Signs Vital Sign Reading Time Taken Comments Blood Pressure 130/84 01/03/2025 9:38 AM EST Pulse 67 01/03/2025 9:38 AM EST Temperature 36.6 C (97.9 F) 01/03/2025 9:38 AM EST Respiratory Rate 17 01/03/2025 9:38 AM EST Oxygen Saturation 99% 01/03/2025 9:38 AM EST Inhaled Oxygen Concentration - - Weight 81.2 kg (179 lb) 11/05/2023 9:48 AM EST Height 157.5 cm (5' 2 ) 11/05/2023 9:48 AM EST Body Mass Index 32.74 11/05/2023 9:48 AM EST Plan of Treatment Health Maintenance Due Date Last Done Comments Adult Td,Tdap Booster 1960 CREATININE LEVEL 1960 LIPID PANEL 1960 POTASSIUM LEVEL 1960 TSH LEVEL 1960 DEPRESSION SCREENING 1972 SMOKING Hx and SMOKELESS TOBACCO SCREENING 1973 HEPATITIS C SCREENING 1978 HIV ONE-TIME SCREENING (18-65 YEARS) 1978 PNEUMOCOCCAL VACCINES (50+ years) (1 of 2 - PCV) 1979 ZOSTER VACCINES (1 of 2) 1979 SCREENING FOR DIABETES 1995 MAMMOGRAM 2000 COLOGUARD 2005 COLONOSCOPY 2005 COLORECTAL CANCER SCREENING 2005 FIT TEST 2005 FOBT 2005 SIGMOIDOSCOPY 2005 VIRTUAL COLONOSCOPY 2005 INFLUENZA VACCINE (#1) 2025 , 01/19/2024, 11/07/2022, Additional history exists OSTEOPOROSIS SCREENING INITIAL (ONE-TIME) 2025 BLOOD PRESSURE 07/03/2025 01/03/2025 COVID-19 VACCINE ( season) 2025 10/21/2022, 02/08/2022, 08/11/2021, Additional history exists RSV VACCINE Completed 01/19/2024 HEPATITIS A VACCINES Aged Out No long er eligible based on patient's age to complete this topic HIB VACCINES Aged Out No longer eligi ble based on patient's age to complete this topic MENINGOCOCCAL VACCINES (ACWY) Aged Out No longer eligible based on patient's age to complete this topic MENINGOCOCCAL VACCINES (B) Aged Out N o longer eligible based on patient's age to complete this topic Medical Devices Not on file Insurance [facility] HMO [facility] HMO [facility] HMO Care Teams Tromper Relationship Specialty Start Date End Date Felicia Dumont MD [address] [address] PCP - General Internal Medicine 08/23/23 Additional Source Comments The information contained in this document represents components of the legal health record. It is not the complete legal health record.[facility]
--- OUTSIDE RECORDS SUMMARY | 2025-11-10 20:43 | XMS_ITS | Encounter Summary ---
Author Organization [facility] Address [address] [place] [address] Care Team Providers Care Feed Mill Manager Name Role Phone Physician, Pcp Unknown Primary Care Provider Hanna vailable Encounter Details Date Type Department Care Team (Late st Contact Info) Description 09/25/2025 Lab Requisition [facility] - Main Lab [address] [facility] [place] [address] Felicia Dumont MD [address] [place] [address] [place] [address] Encounter for screening for malignant neoplasm of cervix Social History Tobacco Use Types Packs/Day Years Used Date Smoking Tobacco: Never Assessed Comments Unknown Sex and Gender Information Value Date Recorded Sex Assigned at Not on file Legal Sex Female 7:37 PM EST Gender Identity Not on file Sexual Orientation Not on file documented as of this encounter Plan of Treatment Not on file documented as of this encounter Procedures Procedure Name Priority Date/Time Associated Diagnosis Comments HPV WITH REFLEX GENOTYPE Routine 09/22/2025 12:00 AM EDT Encounter for screening for malignant neoplasm of cervix PAP SMEAR Routine 09/22/2025 12:00 AM EDT Encounter for screening for malignant neoplasm of cervix documented in this encounter Results * HPV with reflex genotype (09/22/2025 12:00 AM EDT) HPV Negative Negative LAB MICROBIOLOGY METHOD 09/26/2025 1:48 PM EDT [facility] Brushing/Spatula Cervix uteri structure / Unknown 09/22/2025 09/25/2025 2:18 PM EDT us Felicia Dumont MD LAB MOLECULAR DIAGNOSTICS ORD ERABLES Final Result [facility] [address] [place] [address], [place] [phone] * Pap smear (09/22/2025 12:00 AM EDT) Interpretation Negative for intraepithelial lesion or malignancy 09/30/2025 10:41 AM [facility] at 1041 EST General Categorization Negative 09/30/2025 10:41 AM [facility] Specimen Adequacy Satisfactory for evaluation, endocervical/melton sformation zone component absent 09/30/2025 10:41 AM [facility] Pap Methodology Liquid Based Pap Test 09/30/2025 10:41 AM [facility] Disclaimer The Pap test is a screening test which carries an inherent false negative rate. These test results should be correlated with the patient's clinical findings and history. This Pap test was processed using an automated screening system. Technical cytopathology services provided by [facility], at [address] [place] [id number] (CLIA # [id number]/Andrew Fine MD, Director Of Customer Service.) 09/30/2025 10:41 AM [facility] Console Pap Interpretation Reported 09/30/2025 10:41 AM [facility] Brushing/Spatula Cervix uteri structure / Unknown 09/22/2025 09/25/2025 2:18 PM EDT us Felicia Dumont MD LAB CYTOLOGY ORDERABLES Final Result [facility] [address] [place] [address], [place] [phone] documented in this encounter Visit Diagnoses Diagnosis Encounter for screening for malignant neoplasm of cervix documented in this encounter Care Teams Feed Mill Manager Relationship Specialty Start Date End Date Physician, Pcp Unknown PCP - General 09/27/25 documented as of this encounter
--- OUTSIDE RECORDS SUMMARY | 2025-11-10 20:43 | XMS_ITS | Continuity of Care Document ---
Author Organization [facility] Address [address] [facility] [address] [place] [address] Phone [phone] Care Team Providers Care Nutrition Intern Name Role Phone Felicia Dumont Care Team Information Career Orientation Teacher [phone] Problems Active Problems Provider Date Malignant tumor [...] SIG Qnty Indications Order ing Provider Date Wegovy0.5mg/0.5ML Solution Auto-Inject inject 0.5 ml weekly 6ml Vinh Nielson M.D. 08/21/2025 Levothyroxine [id number] Tablets 1 Tablet By Mouth Daily 2 Tablets On Monday 102tabs Vinh Nielson M.D. 10/07/2022 [id number] Tablets Take 1 Tablet By Mouth Every Day Adlakburt, Felicia Rosuvastatin Vrimqau92py Tablets Take 1 Tablet By Mouth Every Day Adlakburt Felicia Estradiol0.1mg/GM Cream Instill 1 GM Vaginally Daily AT Bedtime. Take Every Night For Two Weeks Then Twi Unknown Montelukast Kegvmn97yp Tablets Take 1 Tablet By Mouth Every Day Felicia Dumont Albuterol Sulfate MBZ198(90Base) mcg/Act Aerosol Inhale 2 Puffs By Mouth 4 Times A Day as Needed For Asthma Felicia Dumont Flovent NCR633xox/Act Aerosol Inhale 1 puff Orally 2 Times A Day Charleen Sanket History Medications Wegovy0.25mg/0.5ML Solution Auto-Inject inject 0.25 mg weekly for one month 2ml Vinh Nielson M.D. 07/10/2025 - 08/21/2025 Medications Administered in Office Medication SIG Qnty [...] 5 TSH With Reflex To FT4 01/09/2024 [facility] TSH With Reflex To FT4 0.84 uIU/mL (0.4-4.2) Thyroglobulin,Tu mor MRKR W/RFLX 01/09/2024 [facility] Thyroglobulin,Tu mor MRKR W/RFLX <1.0 6 Thyroglobulin Reflex Immunoassay 01/09/2024 [facility] Thyroglobulin Reflex Immunoassay <0.1 Low 7 TSH With Reflex To FT4 06/03/2023 [facility] TSH With Reflex To FT4 0.06 uIU/mL Low (0.4-4.2) Free T4 06/03/2023 [facility] Free T4 1.89 ng/dL High (0.70-1.80 ) TSH With Reflex To FT4 03/03/2023 [facility] TSH With Reflex To FT4 <pending> TSH With Reflex To FT4 03/02/2023 [facility] TSH With Reflex To FT4 0.05 uIU/mL Low (0.4-4.2) Free T4 03/02/2023 [facility] Free T4 2.06 ng/dL High (0.70-1.80 ) TSH With Reflex To FT4 12/06/2022 [facility] TSH With Reflex To FT4 <pending> Thyroglobulin,Tu mor MRKR W/RFLX 12/03/2022 [facility] Thyroglobulin,Tu mor MRKR W/RFLX <1.0 8 Thyroglobulin Reflex Immunoassay 12/03/2022 [facility] Thyroglobulin Reflex Immunoassay <0.1 Low 9 1 Therapeutic target f or gout patients: <6.0 2 Thyroglobulin Antibo dy measured by Jarod Poth Methodology It should be noted that the presence of thyroglobulin antibodies may not be pathogenic nor diagnostic, especially at very low levels. The assay customs verifier has found that four percent of individuals without evidence of thyroid disease or autoimmunity will have positive TgAb levels up to 4 IU/mL. 3 According to the [place] Academy of [...] Thyroglobulin measured by Jarod Roxana Immunometric Assay 4 Thyroglobulin Antibo dy measured by Jarod Poth Methodology It should be noted that the presence of thyroglobulin antibodies may not be pathogenic nor diagnostic, especially at very low levels. The assay customs verifier has found that four percent of individuals [...] is 0.1 ng/mL Thyroglobulin measured by Jarod Poth Immunometric Assay 6 Reference range: 0.0 to 0.9 Unit: IU/mL (NOTE) Thyroglobulin Antibody measured by Jarod Poth Methodology It should be noted that the presence of thyroglobulin antibodies may not be pathogenic nor diagnostic, especially at very low levels. The assay customs verifier has found that four percent of individuals without evidence of thyroid disease or autoimmunity will have positive TgAb levels up to 4 IU/mL. Test performed by [employer], [place] [address] 7 Reference range: 1.5 to 38.5 Unit: [...] is 0.1 ng/mL Thyroglobulin measured by Jarod Poth Immunometric Assay Test performed by [employer], [facility] [place] [address] 8 Reference range: 0.0 to 0.9 Unit: IU/mL (NOTE) Thyroglobulin Antibody measured by Jarod Poth Methodology Test performed by [facility] [place] [address] 9 Reference range: 1.5 to 38.5 Unit: [...] is 0.1 ng/mL Thyroglobulin measured by Jarod Poth Immunometric Assay Test performed by [facility] [place] [address] Procedures Date Code Description Status 02/13/2024 J3240 Injection Thyrotropin To 10 Iu Completed 02/13/2024 [id number] Therapeutic, Prophylactic Or Diagnostic Injection Subq/Im Completed 02/12/2024 J3240 Injection Thyrotropin To 10 Iu Completed 02/12/2024 98665 Therapeutic, Prophylactic Or Diagnostic Injection Subq/Im Completed 09/27/2022 J3240 Injection Thyrotropin To 10 Iu Completed 09/27/2022 89800 Therapeutic, Prophylactic Or Diagnostic Injection Subq/Im Completed 09/26/2022 J3240 Injection Thyrotropin To 10 Iu Completed 09/26/2022 40670 Therapeutic, Prophylactic Or Diagnostic Injection Subq/Im Completed 06/01/2022 [id number] Collection Of Capillary Bloo d Specimen Completed [...]
--- OUTSIDE RECORDS SUMMARY | 2025-11-10 20:43 | XMS_ITS | Patient Health Record ---
Author Organization [facility] Address [address] [facility] [address] [place] [address] Care Team Providers Care Shoe Stamper Name Role Phone Felicia Dumont Primary Care Provider UnavailDavid Barragan [phone] Allergies Allergen (clinical drug ingredient) Drug/Non Drug Allergy documented on EMR Reaction Allergy Type Onset Date Status erythromycin e-mycin (uncoded) Unknown Allergy Active Reason For Referral No Information Medications Medication SIG (Take, Route, Frequency, Duration) Notes Start Date End Date Status PriLOSEC Active Multivitamin Active Suprep Bowel Prep 1 kit Solution as directed Orally as directed; Duration: 1 dose 09/04/2013 Active Diovan HCT Active Simvastatin Active Claritin Active Albuterol Sulfate HFA Active Social History Social History Additional Details Category Social Info Options Details Miscellaneous: Marital status: Occupation: preschool teache [employer] Problems Problem Type SNOMED Code ICD Code Onset Dates Problem Status W/U Status Risk Notes Problem Irritable bowel syndrome (52714099) Irritable bowel syndrome (564.1) Active confirmed Problem Diarrhea (88387813) Diarrhea (787.91) Active confirmed Problem Colon cancer screening (511354068) Colon cancer screening (V76.51) Active confirmed Problem Gastroesophageal reflux disease (312390480) GERD (gastroesopha geal reflux disease) (530.81) Active confirmed Plan Of Treatment Pending Test Test Name Order Date CELIAC PANEL #10 09/04/2013 Future Test Test Name Order Date COLONOSCOPY 09/04/2013 Next Appt Details Provider Name:David Mackey , 02/04/2026 04:00:00 PM, [address], [address], [place], [address], Insurance Providers Payer Name Payer Address Payer Phone Subscriber Number Group Number Insured Name Patient Relationship to Insured Coverage Start Date Coverage End Date [facility] [address] [place] [address] [phone] [id number] CORTEZ ALMONTE Self - patient is the insured Medical (General) History Medical History History ICD Code Denies PA,DM,CVA,renal disease EGD in 10/2003-small HH and no sig. 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
== END ==
LOC: HO.SL 14:16
PROVIDERS: PCP Internal Medicine; Visit Provider Internal Medicine Pulmonary Disease
DX: G47.33 Obstructive sleep apnea (adult) (pediatric) (principal)
CPT/HCPCS: 95806

== ENCOUNTER → 2025-11-10 14:39 | Outpatient (BNV) | payer OTHER, SELFPAY | PROVIDERS: PCP Internal Medicine; Visit Provider Psychiatry & Neurology Neurology | DX: G47.33 Obstructive sleep apnea (adult) (pediatric) (principal) | CPT/HCPCS: 95806 ==